=== PATIENT | male | born 1960 | race Caucasian/White ===

== ENCOUNTER 2016-11-08 15:34 | Inpatient (IN) | payer OTHER ==
--- NOTE | 2016-11-08 16:16 | EDPHY ---
H & P Stated Complaint: Diarrhea for three weeks-has been on ABxs Time Seen by Provider: 11/08/16 16:15 - Personal History Current Tetanus/Diphtheria Vaccine: Unsure Current Tetanus Diphtheria and Acellular Pertussis (TDAP): Unsure Tetanus Vaccine Date: < 10 years - Medical/Surgical History Hx Asthma: No Hx Chronic Respiratory Disease: No Hx Diabetes: Yes Hx Cardiac Disease: Yes Hx Renal Disease: No Hx Cirrhosis: No Hx Alcoholism: No Hx HIV/AIDS: No Hx Splenectomy or Spleen Trauma: No Other PMH: Pancreas and kidney transplant, PERIPHERAL NEUROPATHY, CHRONIC PAIN, GOUT, PACEMAKER. PPM, Blind, HTN, Soft Bipolar,/AFIB,CAD. - Social History Smoking Status: Never smoked Constitutional: Initial Vital Signs Temperature (C) 36.6 C 11/08/16 15:41 Heart Rate 62 11/08/16 15:41 Respiratory Rate 16 11/08/16 15:41 Blood Pressure 146/78 H 11/08/16 15:41 O2 Sat (%) 96 11/08/16 15:41 O2 Delivery Mode Room Air Allergies/Adverse Reactions: doxycycline Allergy (Intermediate, Verified 11/08/16 15:45) Other-Enter Comments promethazine HCl [From Phenergan] Allergy (Intermediate, Verified 11/08/16 15:45 ) Other-Enter Comments triazolam [From Halcion] Allergy (Intermediate, Verified 08/14/16 10:38) hallucinations levofloxacin [From Levaquin] Allergy (Mild, Verified 11/08/16 15:45) Vomiting IV CONTRAST Allergy (Intermediate, Uncoded 11/08/16 15:45) Home Medications: Medication Instructions Recorded Allopurinol [Allopurinol 100 MG 100 mg PO DAILY 05/02/16 (*)] Aspirin [Aspirin 81mg (*)] 81 mg PO DAILY 05/02/16 Atorvastatin Calcium [Lipitor 10 10 mg PO DAILY 05/02/16 mg (*)] Cetirizine [ZyrTEC 10 mg (*)] 10 mg PO DAILY PRN 05/02/16 Cholestyramine (with Sugar) 4 gm PO DAILY PRN 05/02/16 [Cholestyramine Packet] Denosumab [Prolia] 60 mg SQ .TWICE YEARLY 05/02/16 Ezetimibe [Zetia 10 MG (*)] 10 mg PO DAILY 05/02/16 Herbals/Supplements -Info Only 1 ea PO DAILY 05/02/16 Pantoprazole Sodium [Protonix 40mg 40 mg PO DAILY 05/02/16 (*)] amLODIPine BESYLATE [Norvasc 2.5 2.5 mg PO DAILY 05/02/16 mg (*)] lamOTRIGine [Lamictal] 150 mg PO DAILY 05/02/16 lamoTRIgine [LamICTAL 100 MG (*)] 100 mg PO HS #0 tab 05/04/16 Colchicine [Colchicine (*)] 0.6 mg PO DAILY PRN 05/23/16 Mycophenolate Mofetil [Cellcept] 500 mg PO BID 05/23/16 Oxcarbazepine [Trileptal] 75 mg PO BID 05/23/16 cycloSPORINE, MODIFIED [Neoral 100 100 mg PO BID 05/23/16 MG (*)] cycloSPORINE, MODIFIED [Neoral 25 25 mg PO BID 05/23/16 MG (*)] [place]-3 Fatty Acids/Fish Oil 1 each PO QID 08/14/16 [[place] 3 Fish Oil Softgel] Sodium Bicarbonate [Na Bicarb] 3,250 mg PO TID 08/14/16 Warfarin Sodium [Coumadin 1MG (*)] 1 mg PO SUMOTUTHFRSA@16 08/14/16 Acetaminophen [Tylenol 325mg (*)] 650 mg PO Q4HRS PRN #0 tab 08/15/16 LORazepam [Ativan (*)] 0.5 - 1 mg PO Q8HRS PRN #0 tab 08/15/16 oxyCODONE IR [Oxycodone Ir (*)] 5 - 10 mg PO Q3HRS PRN #0 tab 08/15/16 predniSONE 5 mg PO DAILY #0 tab 08/15/16 predniSONE 10 mg PO DAILY #0 tab 08/15/16 Medical Decision Making ED Course/Re-evaluation: CHIEF COMPLAINT: Diarrhea HISTORY OF PRESENT ILLNESS: This patient is a 56 year old male who presents to the Emergency Department complaining of intermittent diarrhea beginning in early October. He had oral surgery on 10/03/2016 and took a full 10-day course of Amoxicillin at that time. He reports that he has been experiencing diarrhea since he completed the antibiotic course. He describes associated abdominal cramping that waxes and wanes, worse at night. He denies fever, chills, nausea, vomiting, or additional complaints. He has extensive medical history including recent diagnosis of atrial fibrillation for which he takes Coumadin. REVIEW OF SYSTEMS: A 10 point review of systems was performed and is negative with the exception of the elements mentioned in the history of present illness. PHYSICAL EXAM: HR 62, BP 146/78, O2 Sat 96%, RR 16. Temp noted General Appearance: Alert, well hydrated, appropriate, and non-toxic appearing. Head: Atraumatic without scalp tenderness or obvious injury Eyes: Blindness bilaterally. Ears: Clear bilaterally, no perforation, normal landmarks Nose: Atraumatic, no rhinorrhea, clear. Throat: There is no erythema or exudates, no lesions, normal tonsils, mucus membranes moist. Neck: Supple, 2+ carotid upstroke, nontender, no lymphadenopathy. Respiratory: No retractions, no distress, no wheezes, and no accessory muscle use. Lungs are clear to auscultation bilaterally. Cardiovascular: Regular rate and rhythm, no murmurs, rubs, or gallops. Bilateral carotid, radial, dorsalis pedis, and posterior tibial pulses intact. Good capillary refill all extremities. Gastrointestinal: Abdomen is soft, non-distended, no tenderness, no masses, no rebound, no guarding, no peritoneal signs. Musculoskeletal: Normal active ROM of all extremities, atraumatic. Neurological: Alert, appropriate, and interactive. The patient has normal DTRs and non-focal cranial nerves, motor, sensory, and cerebellar exam. Skin: No rashes, good turgor, no nodules on palpation. Diffuse ecchymosis to both forearms secondary to anticoagulation. Past medical history: CKD, pancreatic insufficiency with prior type 1 diabetes treated with pancreatic transplant, blindness, hypertension, hyperlipidemia, chronic low back pain, atrial fibrillation (Coumadin), cardiac pacemaker, hyponatremia (admitted on 08/14/2016). Past surgical history: pancreatic transplant, renal transplant, pacemaker placement, multiple ocular surgeries. Family history: Non-contributory. Social history: ; at bedside. DIFFERENTIAL DIAGNOSIS: The differential diagnosis for the patient's diarrhea included but was not limited to gastroenteritis, gastritis, medication side effect, and clostridium difficile. MEDICAL DECISION MAKING: This 56 year old male presents complaining of intermittent diarrhea presenting after administration of Amoxicillin following oral surgery at the end of September. On exam, he appears uncomfortable. I discussed with him the plan to proceed with labs. He is agreeable to this. IV established. 1L IV NS administered. Labs obtained. The patient has history of renal insufficiency; his kidney function is at baseline. He is sub-therapeutic in INR, anemia, hypocalcemic. Awaiting stool culture results. Plan for admission. 1mg IV calcium chloride administered for hypocalcemia. 1804: Consultation with Dr. Isidra Martinez, heat treat supervisor within the patient's PCP's practice, who will admit the patient. - Data Points Laboratory Results: Laboratory Results 11/08/16 16:42 11/08/16 16:42 11/08/16 11/08/16 11/08/16 16:42 16:42 16:42 WBC 6.77 10^3/uL 10^3/uL (3.80-9.50) RBC 2.56 10^6/uL L 10^6/uL (4.40-6.38) Hgb 8.3 g/dL L g/dL (13.7-17.5) Hct 25.9 % L % (40.0-51.0) MCV 101.2 fL H fL (81.5-99.8) MCH 32.4 pg pg (27.9-34.1) MCHC 32.0 g/dL L g/dL (32.4-36.7) RDW 19.7 % H % (11.5-15.2) Plt Count 180 10^3/uL 10^3/uL (150-400) MPV 9.2 fL fL (8.7-11.7) Neut % (Auto) 88.4 % H % (39.3-74.2) Lymph % (Auto) 2.5 % L % (15.0-45.0) [place] % (Auto) 5.3 % % (4.5-13.0) Eos % (Auto) 1.9 % % (0.6-7.6) Baso % (Auto) 0.1 % L % (0.3-1.7) Nucleat RBC Rel Count 0.0 % % (0.0-0.2) Absolute Neuts (auto) 5.98 10^3/uL 10^3/uL (1.70-6.50) Absolute Lymphs (auto) 0.17 10^3/uL L 10^3/uL (1.00-3.00) Absolute Monos (auto) 0.36 10^3/uL 10^3/uL (0.30-0.80) Absolute Eos (auto) 0.13 10^3/uL 10^3/uL (0.03-0.40) Absolute Basos (auto) 0.01 10^3/uL L 10^3/uL (0.02-0.10) Absolute Nucleated RBC 0.00 10^3/uL 10^3/uL (0-0.01) Immature Gran % 1.8 % H % (0.0-1.1) Immature Gran # 0.12 10^3/uL H 10^3/uL (0.00-0.10) PT 17.3 SEC H SEC (12.0-15.0) INR 1.42 H (0.83-1.16) APTT 26.9 SEC SEC (23.0-38.0) Sodium 138 mEq/L mEq/L (134-144) Potassium 4.0 mEq/L mEq/L (3.5-5.2) Chloride 114 mEq/L H mEq/L (97-110) Carbon Dioxide 14 mEq/l L mEq/l (22-31) Anion Gap 10 mEq/L mEq/L (8-16) BUN 60 mg/dL H mg/dL (7-23) Creatinine 2.4 mg/dL H mg/dL (0.7-1.3) Estimated GFR 28 Glucose 89 mg/dL mg/dL (70-100) Calcium 5.5 mg/dL L* mg/dL (8.5-10.4) Medications Given: Discontinued Medications Sodium Chloride (Ns) 1,000 mls @ 0 mls/hr IV ONCE ONE PRN Reason: Wide Open Stop: 11/08/16 16:23 Last Admin: 11/08/16 16:55 Dose: 1,000 mls Departure - Departure Disposition: [facility] Acute Clinical Impression: Hypocalcemia, Subtherapeutic international normalized ratio (INR), probably clostridium difficile Anemia Qualifiers: Anemia type: unspecified type Qualified Code(s): D64.9 - Anemia, unspecified Diarrhea Qualifiers: Diarrhea type: presumed infectious Qualified Code(s): A09 - Infectious gastroenteritis and colitis, unspecified Condition: Fair
[2016-11-08] MEDS ORDERED: NS 1,000 ML IV ONE (16:22)
[2016-11-08 16:50] LABS: % IMMATURE GRANULYOCYTES 1.8 % (0.0-1.1); ABSOLUTE IMMATURE GRANULOCYTES 0.12 10^3/uL (0.00-0.10); ADD DIFF? NO; ADD MORPH? NO; ADD SCAN? NO; ATYPICAL LYMPHOCYTE FLAG 0 (0-99); FRAGMENT RBC FLAG 10 (0-99); HEMATOCRIT 25.9 % (40.0-51.0); HEMOGLOBIN 8.3 g/dL (13.7-17.5); LEFT SHIFT FLG 10 (0-99); LIPEMIA HEMOLYSIS FLAG 80 (0-99); MEAN CELL HEMOGLOBIN 32.4 pg (27.9-34.1); MEAN CELL VOLUME 101.2 fL (81.5-99.8); MEAN PLATELET VOLUME 9.2 fL (8.7-11.7); PLATELET CLUMPS FLAG 0 (0-99); PLATELET COUNT 180 10^3/uL (150-400); RED BLOOD CELL COUNT 2.56 10^6/uL (4.40-6.38); RED CELL DISTRIBUTION WIDTH 19.7 % (11.5-15.2)
[2016-11-08 17:03] LABS: ANION GAP 10 mEq/L (8-16); CARBON DIOXIDE 14 mEq/l (22-31); CHLORIDE 114 mEq/L (97-110); CREATININE 2.4 mg/dL (0.7-1.3); GLOMERULAR FILTRATION RATE 28; GLUCOSE 89 mg/dL (70-100); SODIUM 138 mEq/L (134-144)
[2016-11-08 17:09] LABS: APTT 26.9 SEC (23.0-38.0); INR 1.42 (0.83-1.16); PROTIME(PATIENT) 17.3 SEC (12.0-15.0)
[2016-11-08 17:16] LABS: CALCIUM 5.5 mg/dL (8.5-10.4)
[2016-11-08] MEDS ORDERED: CALCIUM CHLORIDE 1 GM/10 ML INJ IV ONE (17:30)
--- NOTE | 2016-11-08 18:25 | SOAPPROG ---
SOAP Progress Note Assessment/Plan: Assessment: 56 yo male w/ h/o kidney transplant x 2, pancreatic transplant x 1, CKD w / baseline Cr in mid 2 range, blindness from DM who presents to the ER after 3 weeks of diarrhea. He had dental work done 3 weeks prior and was treated with amoxicillin, and then after this developed diarrhea. He was eating a lot of soup and salty foods and developed some edema as well, but didn't feel like eating anything else. He tried pepto bismal and imodium without much success, has had 2-6 loose stools per day. He decided he couldn't handle it anymore, and has a h/o hyponatremia and was worried this was going on in addition. In the ER he was found to have nl sodium, rest of BMP at his typical baseline but low calcium. His cbc showed he is significantly anemic which is acute on chronic. Stool cultures, c diff pending. -will admit, hydrate, awaiting stool culture/c diff to treat appropriately ( vanco/flagyl for c diff vs anti-spasmodic, anti-motility depending on results). -low ca - being treated in ER -CKD - stable, f/b Dr Mcnair, con t sodium bicarb -DM - fsbs, insulin, check on recent A1c -PAF - on coumadin, follow inr/pt -s/p renal tx/pancreatic tx - on cyclosporine, cellcept, will alert nephrology he is here and of the current situation -hyperchol - cont lipitor -GERD- cont PPI -mood - on lamotrigine, trileptal -h/o htn typically on amlodpine, hold for now w/ dehydration low bp reassess -hyperlipidemia - lipitor, zetia, fish oil Plan: 11/08/16 18:07 Subjective: Feeling horrible, tired, not sleeping well for 2-3 weeks due to diarrhea Objective: Vital Signs Temp Pulse Resp BP Pulse Ox 36.6 C 62 16 146/78 H 96 11/08/16 15:41 11/08/16 15:41 11/08/16 15:41 11/08/16 15:41 11/08/16 15:41 PT 17.3 SEC (12.0-15.0) H 11/08/16 16:42 INR 1.42 (0.83-1.16) H 11/08/16 16:42 GEN: pleasant, spouse at bedside, tired, yawning HEENT: blind, poor dentition NEck: soft supple CHEST: cta b CV: irreg irreg ABD: distended, bs present Ext: 1+ ble edema, bandaids on bilater anter shins Neuro: oriented, cooperative - Pending Discharge Pending Discharge Within 24 Hours: No ICD10 Worksheet Patient Problems: Problems Problem Status Onset Heart block AV second degree Acute Elevated troponin Acute Pacemaker Acute Urinary tract infection Acute Hyponatremia Acute Hypocalcemia Acute Subtherapeutic international normalized ratio (INR) Acute Anemia Acute Diarrhea Acute
[2016-11-08] MEDS ORDERED: ACETAMINOPHEN 325 MG TAB PO PRN (18:28)
[2016-11-08] MEDS ORDERED: ONDANSETRON 4 MG/2 ML VIAL IVP PRN (18:28)
[2016-11-08] MEDS ORDERED: ONDANSETRON DISINTEGRATING 4 MG TAB PO PRN (18:28)
[2016-11-08] MEDS ORDERED: NS 1,000 ML IV SCH (18:30)
--- NOTE | 2016-11-08 19:21 | GHP ---
DATE OF ADMISSION: 11/08/2016 CHIEF COMPLAINT: Diarrhea. HPI: The patient is a 56-year-old male with a significant history of renal transplant x2, pancreatic transplant x1 with chronic kidney disease, and baseline anemia as well as blindness who presented to the ER after about 3 weeks of diarrhea. This was proceeded by dental work that he had done and was treated with amoxicillin which, thereafter, he developed the diarrhea. He has been eating a lot of soup and salty foods, trying to symptomatically treat this and then developed a lot of edema resulting from this. He tried taking Pepto- Bismol and Imodium which really was not slowing the stools down. He still reports he is having 2 to 6 loose stools per day. He reports that 3-4 years ago after receiving antibiotics for what sounds like a foot cellulitis, he also had horrendous GI upset that went on for almost a year afterwards and was not C diff by ultimately resolved. It was difficult to treat. He reports he has a history of recent hyponatremia and he was worried that this was going on in addition, because he was feeling pretty tired and not great. He has not been able to sleep well at night for several nights and is just exhausted. In the ER , it was found that he did have a normal sodium and the rest of his basic metabolic panel was normal except for a low calcium which was being treated in the ER. The CBC also shows that he has acute on chronic anemia. Typically, hematocrit is in the mid 30 range and is now in the mid 20 range. Stool cultures and C diff are pending. PAST MEDICAL HISTORY: Significant for type 1 diabetes for which he received a pancreatic transplant in 1992. Kidney failure due to diabetes, status post transplant in 1992, repeat 2001. Chronic kidney disease, followed by Dr. Mcnair with a creatinine in the mid 2 range. Hypertension, sick sinus syndrome , status post pacer in 2013 also with atrial fibrillation. Hyperlipidemia, gout , hypertension, anxiety. PAST SURGICAL HISTORY: Significant for transplants as discussed above, recent dental surgery, pacemaker 2013, eye surgeries and a foot surgery as well. SOCIAL HISTORY: He has rare alcohol. He is a nonsmoker. Significant other is with him in the room. FAMILY HISTORY: His father has a history of a stroke, hip and knee replacements as well as valve surgery and a stroke. Mom is alive, history of low platelets, cirrhosis. He has a brother with prostate cancer, a sister had thyroid surgery. REVIEW OF SYSTEMS: GENERAL: Positive for fatigue. Denies fevers or chills. HEENT: Blind. RESPIRATORY: Denies cough, shortness of breath or wheezing. CARDIOVASCULAR: Denies chest pain or palpitations. GI: Positive for diarrhea as above. MUSCULOSKELETAL: He just aches in general and lower legs are hurting with increased edema. : Negative. NEUROLOGIC: Negative. HEMATOLOGIC/ALLERGIC: Negative. He is on Coumadin for atrial fibrillation. PSYCHIATRIC: Positive for history of anxiety, on mood stabilizers. PHYSICAL EXAM: VITALS: Blood pressure initially 146/78, repeat 133/32, heart rate 60, respirations 16, he is 96% on room air and afebrile with a temperature of 36.6. GENERAL: Tired-appearing male, resting in bed, spouse at bedside, yawning. HEENT: He is blind, has poor dentition. NECK: Soft and supple with no masses or goiter appreciated. CHEST: Clear to auscultation bilaterally. CARDIOVASCULAR: Irregular. He is paced. ABDOMEN: Distended with present bowel sounds. EXTREMITIES: He has 1+ bilateral lower extremity with Band-Aids on anterior shins from when he was more edematous, approximately a week ago, with a lot of chicken soup when his lower legs were oozing at that time. He said this has resolved but his skin is very thin and does not want remove them due to the warfarin. NEUROLOGIC: Alert and oriented, cooperative but fatigued. PSYCHIATRIC: No acute problematic mood issues. ASSESSMENT AND PLAN: 1. A 56-year-old male, status post kidney transplant x2, and pancreatic transplant with chronic kidney disease, anemia with 3 weeks of diarrhea following amoxicillin with dental work. Will hydrate. Awaiting stool culture/ C diff to treat appropriately. If Clostridium difficile, oral vancomycin versus Flagyl versus antispasmodics and antimotility agents depending on results of the cultures. 2. Hypocalcemia. Being replaced in the ER. 3. Chronic kidney disease, stable followed by Dr. Mncair. Will continue his sodium bicarb, reassess his creatinine, consider having Nephrology weigh in given his hemoglobin and hematocrit drop from his usual baseline. Will reassess. 4. History of diabetes type 1, status post pancreatic transplant. He is unfortunately blind from his diabetes but no longer on insulin. 5. Anemia - acute on chronic - will recheck, dw nephrology, question epo vs further w/u, possible transfusion. 5. Paroxysmal atrial fibrillation on Coumadin, follow INR PT. 6. Status post renal transplant, pancreas transplant. Continue on cyclosporine , CellCept, prednisone per his usual dosing and alert Nephrology he is here. 7. Hypercholesterolemia. Continue Lipitor and Zetia. 8. Gastroesophageal reflux disease. Continue on proton pump inhibitor. 9. Mood. Continue lamotrigine and Trileptal. 10. History of hypertension. Typically on amlodipine. Will reassess with hydration and follow blood pressure. 11. DVT prophylaxis, is on Coumadin. If pt/inr too low will place on lovenox to cover. 12. Disposition: Anticipate greater than 2 midnight stay given his multiple comorbidities and length of diarrhea prior to admission. /[id number]/MODL [id number]
[2016-11-08] MEDS ORDERED: COLCHICINE 0.6 MG CAP/TAB PO PRN (20:21)
[2016-11-08] MEDS ORDERED: CHOLESTYRAMINE/SUCROSE 4 GM PKT PO PRN (20:21)
[2016-11-08] MEDS ORDERED: oxyCODONE IR 5 MG TAB PO PRN (20:21)
[2016-11-08 22:32] LABS: HEMATOCRIT 27.5 % (40.0-51.0); HEMOGLOBIN 8.6 g/dL (13.7-17.5); MEAN CELL HEMOGLOBIN 32.5 pg (27.9-34.1); MEAN CELL HEMOGLOBIN CONCENTR. 31.3 g/dL (32.4-36.7); MEAN CELL VOLUME 103.8 fL (81.5-99.8); RED BLOOD CELL COUNT 2.65 10^6/uL (4.40-6.38); RED CELL DISTRIBUTION WIDTH 19.8 % (11.5-15.2)
[2016-11-08 22:44] LABS: ANION GAP 10 mEq/L (8-16); CALCIUM 6.2 mg/dL (8.5-10.4); CARBON DIOXIDE 12 mEq/l (22-31); CHLORIDE 115 mEq/L (97-110); CREATININE 2.2 mg/dL (0.7-1.3); GLOMERULAR FILTRATION RATE 31; GLUCOSE 84 mg/dL (70-100); POTASSIUM 4.1 mEq/L (3.5-5.2); SODIUM 137 mEq/L (134-144)
[2016-11-08] MEDS: metroNIDAZOLE 500 MG TAB PO SCH (23:23)
[2016-11-08] MEDS: lamoTRIgine 100 MG TAB PO SCH (23:23)
[2016-11-08] MEDS: OXcarbazepine 300 MG TAB PO SCH (23:24)
[2016-11-08] MEDS: SODIUM BICARBONATE 650 MG TAB PO SCH (23:24)
[2016-11-08] MEDS: MYCOPHENOLATE MOFETIL 250 MG CAP PO SCH (23:27)
[2016-11-08] MEDS: CYCLOSPORINE MODIFIED 100 MG PO SCH (23:28)
[2016-11-08] MEDS: CYCLOSPORINE, MODIFIED 25 MG CAP (NEORAL) PO SCH (23:28)
[2016-11-08] MEDS: [UNRECOGNIZED DRUG - OTHER] PO SCH (23:29)
[2016-11-08] MEDS: LORazepam 0.5 MG TAB PO PRN (23:33)
[2016-11-09 05:11] LABS: % IMMATURE GRANULYOCYTES 1.8 % (0.0-1.1); ABSOLUTE IMMATURE GRANULOCYTES 0.11 10^3/uL (0.00-0.10); ADD DIFF? NO; ADD MORPH? NO; ADD SCAN? NO; ATYPICAL LYMPHOCYTE FLAG 0 (0-99); FRAGMENT RBC FLAG 0 (0-99); HEMATOCRIT 25.3 % (40.0-51.0); LEFT SHIFT FLG 10 (0-99); LIPEMIA HEMOLYSIS FLAG 80 (0-99); MEAN CELL HEMOGLOBIN 32.7 pg (27.9-34.1); MEAN CELL HEMOGLOBIN CONCENTR. 31.6 g/dL (32.4-36.7); MEAN CELL VOLUME 103.3 fL (81.5-99.8); MEAN PLATELET VOLUME 10.2 fL (8.7-11.7); PLATELET CLUMPS FLAG 0 (0-99); PLATELET COUNT 194 10^3/uL (150-400); RED BLOOD CELL COUNT 2.45 10^6/uL (4.40-6.38); RED CELL DISTRIBUTION WIDTH 19.8 % (11.5-15.2)
[2016-11-09 05:22] LABS: INR 1.51 (0.83-1.16); PROTIME(PATIENT) 18.2 SEC (12.0-15.0)
[2016-11-09 05:45] LABS: ANION GAP 11 mEq/L (8-16); CARBON DIOXIDE 12 mEq/l (22-31); CHLORIDE 119 mEq/L (97-110); CREATININE 2.2 mg/dL (0.7-1.3); GLOMERULAR FILTRATION RATE 31; GLUCOSE 73 mg/dL (70-100); POTASSIUM 3.6 mEq/L (3.5-5.2); SODIUM 142 mEq/L (134-144)
[2016-11-09 06:00] LABS: CALCIUM 5.8 mg/dL (8.5-10.4)
[2016-11-09] MEDS: metroNIDAZOLE 500 MG TAB PO SCH ×3 (06:14→21:14)
[2016-11-09] MEDS: OMEGA-3 FATTY ACIDS 1,000 MG CAP PO SCH ×4 (06:14→20:48)
[2016-11-09] MEDS ORDERED: CALCIUM CHLORIDE 1 GM/10 ML INJ IV ONE (06:37)
[2016-11-09] MEDS ORDERED: predniSONE 20 MG TAB PO ONE (06:59)
[2016-11-09] MEDS ORDERED: CALCIUM GLUCONATE 50 ML IV ONE ×2 (07:30→18:30)
[2016-11-09] MEDS ORDERED: LORazepam 0.5 MG TAB PO PRN (08:31)
[2016-11-09] MEDS: ASPIRIN 81 MG CHEWABLE TAB PO SCH (08:31)
[2016-11-09] MEDS: SODIUM BICARBONATE 650 MG TAB PO SCH ×3 (08:31→21:13)
[2016-11-09] MEDS: EZETIMIBE 10 MG TAB PO SCH (08:32)
[2016-11-09] MEDS: OXcarbazepine 300 MG TAB PO SCH ×2 (08:32→20:50)
[2016-11-09] MEDS: PANTOPRAZOLE SODIUM 40 MG TAB PO SCH (08:32)
[2016-11-09] MEDS: ALLOPURINOL 100 MG TAB PO SCH (08:32)
[2016-11-09] MEDS: CYCLOSPORINE MODIFIED 100 MG PO SCH ×2 (08:33→20:48)
[2016-11-09] MEDS: CYCLOSPORINE, MODIFIED 25 MG CAP (NEORAL) PO SCH ×2 (08:33→20:48)
[2016-11-09 08:40] LABS: MAGNESIUM 1.3 mg/dL (1.6-2.3)
--- NOTE | 2016-11-09 08:40 | SOAPPROG ---
SOAP Progress Note Assessment/Plan: Assessment:Plan: Kidney Pancreas transplant-at baseline -continue current immunosuppression Diarrhea-empirically on flagyl -duration over the last three weeks since undergoing dental work and receiving antibiotics -would limit IVF due to degree of edema -would avoid antibiotic dental prophylaxis Edema-as above Hypocalcemia-replace IV -likely needs active form of Vitamin D to help correct -on chronic bicarbonate, which likely worsens this issue -check phos and mag to make sure there are no other contributing factors Anemia-check iron studies -ferritin 113 i December 2015, so I suspect he is deficient -will give IV iron if sat < 30% Afib-would avoid Lovenox -INR goal 1.5 to 2 -Pharmacy to confirm coumadin dosing with primary team -I would avoid any meaningful change in his dose, as with his GI issues, he could very easily overshoot -he currently looks 100% paced Anxiety-wants discharge -he will accept some anxiolytic to help him cope Dispo-check labs this afternoon and replete calcium further as needed -I do not think he is stable for discharge today 11/09/16 08:45 Subjective: I want to go home to my own bed, I do not want to be here Objective: Vital Signs Temp Pulse Resp BP Pulse Ox 36.6 C 69 18 155/41 H 94 11/09/16 08:05 11/09/16 08:05 11/09/16 08:05 11/09/16 08:05 11/09/16 08:05 Laboratory Results 11/09/16 04:04 11/09/16 04:04 11/08/16 11/09/16 11/10/16 05:59 05:59 05:59 Intake Total 1000 Output Total 1500 Balance -500 PT 18.2 SEC (12.0-15.0) H 11/09/16 04:04 INR 1.51 (0.83-1.16) H 11/09/16 04:04 Physical Exam - Physical Exam General Appearance: alert, moderate distress EENT: normal ENT inspection Neck: normal inspection Respiratory: lungs clear, normal breath sounds, No respiratory distress Cardiac/Chest: regular rate, rhythm, other (paced) Abdomen: normal bowel sounds, non-tender Extremities: swelling (2+) ICD10 Worksheet Patient Problems: Problems Problem Status Onset Anemia Acute Diarrhea Acute Hypocalcemia Acute Subtherapeutic international normalized ratio (INR) Acute Elevated troponin Acute Heart block AV second degree Acute Hyponatremia Acute Pacemaker Acute Urinary tract infection Acute
[2016-11-09] MEDS ORDERED: Herbals/Supplements -Info Only PO SCH (09:00)
[2016-11-09] MEDS ORDERED: *PHM DO NOT USE-LORazepam 1 MG/ML IV NEWBORN SYR IV PRN (09:12)
[2016-11-09] MEDS ORDERED: MAGNESIUM SULF 2 GM/WATER 50 ML IV ONE (09:15)
--- NOTE | 2016-11-09 09:17 | SOAPPROG ---
SOAP Progress Note Assessment/Plan: Assessment: Plan: 11/09/16 09:15 loose stool--c diff rejected because stool was formed, on flagyl empirically CKD--appreciate Nephrology input anemia--Fe studies pending, ferritin will likely be high as APR anxiety--likely biggest challenge--add IV dose of lorazepam this am HTN--improved BP VERY difficult to hear due to massive atherosclerosis Subjective: c/o very poor sleep and severe anxiety. Loose stool has persisted since dental extractions. Objective: Vital Signs Temp Pulse Resp BP Pulse Ox 36.6 C 69 18 155/41 H 94 11/09/16 08:05 11/09/16 08:05 11/09/16 08:05 11/09/16 08:05 11/09/16 08:05 Laboratory Results 11/09/16 04:04 11/09/16 04:04 11/08/16 11/09/16 11/10/16 05:59 05:59 05:59 Intake Total 1000 Output Total 1500 Balance -500 PT 18.2 SEC (12.0-15.0) H 11/09/16 04:04 INR 1.51 (0.83-1.16) H 11/09/16 04:04 Gen: anxious, pleasant Lungs: CTAB Heart: RRR Abd + bs soft some distention LE's 2+ edema hgb 8.0 Ca+ low BUN/Cr--stable range ICD10 Worksheet Patient Problems: Problems Problem Status Onset Anemia Acute Diarrhea Acute Hypocalcemia Acute Subtherapeutic international normalized ratio (INR) Acute Elevated troponin Acute Heart block AV second degree Acute Hyponatremia Acute Pacemaker Acute Urinary tract infection Acute
[2016-11-09] MEDS: lamoTRIgine 100 MG TAB PO SCH ×2 (09:23→20:48)
[2016-11-09] MEDS: predniSONE 5 MG TAB PO SCH (09:24)
[2016-11-09] MEDS: MYCOPHENOLATE MOFETIL 250 MG CAP PO SCH ×2 (09:24→20:48)
[2016-11-09] MEDS: LORazepam 2 MG/ML INJ IVP PRN (10:00)
[2016-11-09 10:13] LABS: % SATURATION 20 % (20-55); TOTAL IRON BINDING CAPACITY 181 ug/dL (260-490)
[2016-11-09] MEDS: [UNRECOGNIZED DRUG - OTHER] PO SCH (12:00)
[2016-11-09] MEDS: SODIUM FERRIC GLUCONAT/SUCROSE 125 MG in NS 100 ML IV SCH (12:14)
--- NOTE | 2016-11-09 12:24 | GCON ---
DATE OF CONSULTATION: 11/09/2016 REASON FOR CONSULTATION: Kidney/pancreas transplant patient. ASSESSMENT: 1. Kidney/pancreas transplant performed in 1992 at [place] with subsequent loss of renal allograft. 2. Second renal transplant preemptively, living/unrelated, at [facility] in 2001. 3. Coronary artery disease with 3-vessel disease on left heart catheterization. 05/23/2016; under medical management. 4. Atrial fibrillation, on Coumadin. 5. Status post dual-chamber permanent pacemaker placement in September 2013. 6. Diarrhea for 3 weeks, now found to have norovirus. 7. Hypocalcemia. 8. Metabolic acidosis on chronic bicarbonate therapy. 9. Diabetes with all its complications, including blindness. 10. Anemia. RECOMMENDATION: 1. Replace calcium as you are doing. 2. Check magnesium and phosphorus levels. 3. Replace magnesium as needed. 4. Evaluate iron studies. 5. Give iron intravenously if indicated. 6. Continue current immunosuppression. 7. Follow up on stool studies. 8. Treat anxiety with lorazepam as needed. 9. Avoid Lovenox, given the patient's high risk for bleeding complications. Goal INR should be between 1.5 and 2. 10. Edema. Reduce IV fluids. HISTORY: The patient is a 56-year-old gentleman well known to me from the [facility]. He has end-stage renal disease secondary to type 1 diabetes. He has had complications of his type 1 diabetes in the form of neuropathy, retinopathy, and nephropathy. He has also had gastroparesis. He was on peritoneal dialysis for approximately 4 years prior to undergoing a kidney/pancreas transplant at [facility] in 1992. He lost his renal allograft in 2001 and underwent a preemptive renal transplant, living, unrelated , from his ex-, at [facility] here in [place]. He had some trouble with compliance with his medications and had a loss of renal function to where his baseline has been in the 2 to 2.5 range based on serum creatinine readings. He is now stable with his renal function and transplant medications. He comes in now with a 3-week history of diarrhea. He reached the point where he was unable to manage this at home and sought emergency room attention yesterday afternoon. He was found to be severely hypocalcemic. His history was that he had oral surgery on October 03 and took a 10-day course of amoxicillin. This seems to have precipitated the diarrhea. Stool studies had been sent. I have just been informed that these came back with a positive assay for norovirus. He has a history of depression. There may be an element of underlying bipolar disorder. He is very frustrated and anxious to get home. He was having trouble sleeping at home and did not get much sleep since he has been admitted to the hospital here. He has significant coronary disease. He underwent left heart catheterization on 05/23/[address] Lord. He had 3-vessel disease identified with an 80% lesion of the obtuse marginal. He had LAD changes with a 70% to 80% lesions at both the 2nd diagonal and in an ostial location at the 2nd diagonal branch. His circumflex was nondominant. His RCA was dominant and had 50% mid lesion and an 80% lesion at the bifurcation of the PDA and the PLV. The proximal portion of the PLV was subtotally occluded. His ejection fraction is preserved at around 70%. He has history of AFib and is on low-dose Coumadin. His other medical problems include gout, anemia, and skin cancer. He has underlying metabolic acidosis for which he takes chronic bicarbonate therapy. SURGICAL HISTORY: Kidney/pancreas transplant in 1992, living unrelated renal transplant in 2001 at [facility], eye surgeries, skin cancer surgery, and foot surgery. MEDICATIONS: Documented in the chart. He is on herbal supplement daily, Zetia 10 mg daily, Pantoprazole 40 mg daily, Prolia 60 mg subcu twice a year, lamotrigine 150 mg daily, cholestyramine 4 g daily as needed for loose stool, aspirin 81 mg daily, amlodipine 2.5 mg daily, allopurinol 100 mg daily, lamotrigine 100 mg at night as well, cyclosporin 125 mg twice daily, colchicine 0.6 daily p.r.n., Trileptal 75 mg twice daily, CellCept 500 mg twice daily, sodium bicarbonate 5 tablets 3 times daily, [place]-3 fatty acids 4 times daily, Coumadin 0.5 mg Monday/Monday/, prednisone 5 mg daily, Lorazepam 0.5 mg at bedtime, and oxycodone 5 mg p.o. q.6 p.r.n. ALLERGIES: Include doxycycline, promethazine, triathlon, levofloxacin, and IV contrast. FAMILY HISTORY/SOCIAL HISTORY: Noncontributory. He is . He lives in [place]. He is a nondrinker and nonsmoker and denies drug use. His parents are both living in their 80s. REVIEW OF SYSTEMS: Negative except for that included in history of present illness. PHYSICAL EXAMINATION: VITAL SIGNS: His temp is 36.6, pulse 69, respirations 18 , blood pressure 155/41. APPEARANCE: Mild distress. He appears to be anxious. He is sitting at the side of the bed. His appearance is consistent with his longstanding diabetes and blindness. HEENT: Unremarkable except for his blindness. NECK: Unremarkable. HEART: Regular with no extra heart sounds. LUNGS: Clear to auscultation. ABDOMEN: Benign. Positive bowel sounds. Nontender. No rebound or guarding. EXTREMITIES: 1 to 2+ edema to his knees. LABORATORY DATA: Creatinine of 2.2. Electrolytes were remarkable for a calcium of 5.8. Since an original visit, his magnesium has come back at 1.3 and a phosphorus of 3.9. Iron saturation of 20%. ASSESSMENT: A kidney/pancreas transplant. His creatinine is at baseline. His blood sugar is normal. We will continue his current immunosuppression at the current doses. He is edematous. I would slow down his IV fluids as, in spite of his diarrhea, I do not think he is extremely volume depleted at the present time. We will put him at a rate of 75 cc an hour because at the present time it does not look like he is going to be eating or drinking very much. He has severe hypocalcemia. IV calcium has been ordered. Will check magnesium levels. Will repeat calcium levels this afternoon. We will give him magnesium now that his magnesium level has come back and has been found to be low. He may need an active form of vitamin D to help with his calcium balance. With his metabolic acidosis, we will continue his bicarb. His bicarbonate level is only 12. His use of bicarbonate supplement may be making his calcium issue more pronounced, but I think we need to treat both at the same time, given his current balance. He is anemic. There are no indications for transfusion. He looks like he is iron deficient. IV iron has been ordered. He has been on Coumadin. I would continue his current dosing and confirm his dosing with LEIGH ANN Moya. I would avoid Lovenox as I think the patient is at increased risk for bleeding complications given his comorbidities. I think his current INR of 1.5 is adequate. He is anxious. He states he has responded to a lorazepam in the past. Will make sure he has p.r.n. dosing of that available. /[id number]/MODL MTDD
--- NOTE | 2016-11-09 14:06 | WOCRNPDOC ---
WOCRN Advanced Assessment Note - Skin Integrity Problem, Advanced Assess Left First Toe Dressing Type: Open to Air Exudate Amount: None Megan Wound Tissue: Blanching, Erythema Wound Bed Constitution: Dried Exudate Site Measurement - Head-to-Toe Length X Width X Depth (cm): 0.6x1x0.1 Skin Integrity Problem Comment: Shallow partial thickness wound without signs of infection. No need for wound care to follow. Scab on left arvizu from traumatic encounter with a shopping cart. Silvasorb and bandaid are appropriate for arvizu. Allevyn baby gentle to toe with silvasorb.
[2016-11-09 14:29] LABS: ALBUMIN 2.6 g/dL (3.5-5.0); ANION GAP 10 mEq/L (8-16); CARBON DIOXIDE 13 mEq/l (22-31); CHLORIDE 118 mEq/L (97-110); CREATININE 2.2 mg/dL (0.7-1.3); GLOMERULAR FILTRATION RATE 31; GLUCOSE 100 mg/dL (70-100); POTASSIUM 3.8 mEq/L (3.5-5.2); SODIUM 141 mEq/L (134-144)
[2016-11-09] MEDS ORDERED: WARFARIN SODIUM 1 MG TAB PO SCH (16:00)
[2016-11-09] MEDS: LORazepam 0.5 MG TAB PO PRN (20:58)
[2016-11-10] MEDS: [UNRECOGNIZED DRUG - OTHER] PO SCH ×3 (00:52→17:49)
[2016-11-10 04:12] LABS: ANION GAP 9 mEq/L (8-16); CARBON DIOXIDE 14 mEq/l (22-31); CHLORIDE 116 mEq/L (97-110); CREATININE 2.1 mg/dL (0.7-1.3); GLOMERULAR FILTRATION RATE 33; GLUCOSE 86 mg/dL (70-100); MAGNESIUM 1.7 mg/dL (1.6-2.3); POTASSIUM 3.8 mEq/L (3.5-5.2); SODIUM 139 mEq/L (134-144)
[2016-11-10 04:15] LABS: CALCIUM 5.8 mg/dL (8.5-10.4)
[2016-11-10 05:36] LABS: ALBUMIN 2.5 g/dL (3.5-5.0)
[2016-11-10] MEDS: metroNIDAZOLE 500 MG TAB PO SCH (05:52)
[2016-11-10] MEDS: OMEGA-3 FATTY ACIDS 1,000 MG CAP PO SCH ×4 (05:52→20:28)
[2016-11-10] MEDS ORDERED: MAGNESIUM SULF 2 GM/WATER 50 ML IV ONE (08:31)
[2016-11-10] MEDS ORDERED: CALCIUM GLUCONATE 2 GM in D5W 50 ML IV ONE ×2 (08:31→17:15)
--- NOTE | 2016-11-10 08:54 | SOAPPROG ---
SOAP Progress Note Assessment/Plan: Assessment: Plan: 11/09/16 09:15 loose stool--c diff rejected because stool was formed, on flagyl empirically CKD--appreciate Nephrology input anemia--Fe studies pending, ferritin will likely be high as APR anxiety--likely biggest challenge--add IV dose of lorazepam this am HTN--improved BP VERY difficult to hear due to massive atherosclerosis 11/10/16 08:53 hypocalcemia--renal has ordered more IV Ca gluc CKD--creatinine at baseline, d/c extra fluids anemia with fe def--iv iron ordered emotional distress--likely aggravated by low Ca2+ and being in hospital. Ativan as needed Subjective: Patient upset and wants to leave hospital. Some n/v this am. Large BM's this am. No f/c. Very anxious/tearful Objective: Vital Signs Temp Pulse Resp BP Pulse Ox 36.8 C 66 22 H 100/44 L 94 11/10/16 07:38 11/10/16 07:38 11/10/16 07:38 11/10/16 07:38 11/10/16 07:38 Microbiology 11/09/16 03:15 Gastrointestinal Tract Panel (PCR) - Final Stool Norovirus Gi/Gii Laboratory Results 11/09/16 04:04 11/10/16 03:00 11/09/16 11/10/16 11/11/16 05:59 05:59 05:59 Intake Total 1000 4190 Output Total 1500 1400 Balance -500 2790 PT 18.2 SEC (12.0-15.0) H 11/09/16 04:04 INR 1.51 (0.83-1.16) H 11/09/16 04:04 Gen: distressed Lungs: CTAB Heart: RRR tele paced regular Abd + bs soft LE's 2+ edema Ca2+ remains low ICD10 Worksheet Patient Problems: Problems Problem Status Onset Anemia Acute Diarrhea Acute Hypocalcemia Acute Subtherapeutic international normalized ratio (INR) Acute Elevated troponin Acute Heart block AV second degree Acute Hyponatremia Acute Pacemaker Acute Urinary tract infection Acute
[2016-11-10] MEDS: LORazepam 2 MG/ML INJ IVP PRN ×3 (09:16→20:21)
[2016-11-10] MEDS: MYCOPHENOLATE MOFETIL 250 MG CAP PO SCH ×2 (09:26→20:26)
[2016-11-10] MEDS: ALLOPURINOL 100 MG TAB PO SCH (09:26)
[2016-11-10] MEDS: CYCLOSPORINE, MODIFIED 25 MG CAP (NEORAL) PO SCH ×2 (09:27→20:26)
[2016-11-10] MEDS: CYCLOSPORINE MODIFIED 100 MG PO SCH ×2 (09:27→20:26)
[2016-11-10] MEDS: SODIUM BICARBONATE 650 MG TAB PO SCH ×2 (09:27→15:42)
[2016-11-10] MEDS: lamoTRIgine 100 MG TAB PO SCH ×2 (09:28→20:28)
[2016-11-10] MEDS: predniSONE 5 MG TAB PO SCH (09:30)
[2016-11-10] MEDS: EZETIMIBE 10 MG TAB PO SCH (09:30)
[2016-11-10] MEDS: ASPIRIN 81 MG CHEWABLE TAB PO SCH (09:30)
[2016-11-10] MEDS: PANTOPRAZOLE SODIUM 40 MG TAB PO SCH (09:31)
[2016-11-10] MEDS: OXcarbazepine 300 MG TAB PO SCH ×2 (09:31→20:28)
--- NOTE | 2016-11-10 11:19 | SOAPPROG ---
SOAP Progress Note Assessment/Plan: Assessment:Plan: Kidney Pancreas transplant-at baseline -continue current immunosuppression Diarrhea-norovirus -was empirically on flagyl, now stopped -duration over the last three weeks since undergoing dental work and receiving antibiotics -would avoid antibiotic dental prophylaxis as a general precaution Edema-as above, maintenance IVF stopped Hypocalcemia-replace IV -will add active form of Vitamin D to help correct -on chronic bicarbonate, which likely worsens this issue -low magnesium level -being replaced Anemia-IV iron ordered Afib-would avoid Lovenox -INR goal 1.5 to 2 -Pharmacy to confirm coumadin dosing with primary team -I would avoid any meaningful change in his dose, as with his GI issues, he could very easily overshoot -he currently looks 100% paced Anxiety-better today -he will accept some anxiolytic to help him cope 11/10/16 11:16 Subjective: poor sleep Objective: Vital Signs Temp Pulse Resp BP Pulse Ox 36.8 C 66 22 H 100/44 L 94 11/10/16 07:38 11/10/16 07:38 11/10/16 07:38 11/10/16 07:38 11/10/16 07:38 Microbiology 11/09/16 03:15 Gastrointestinal Tract Panel (PCR) - Final Stool Norovirus Gi/Gii Laboratory Results 11/09/16 04:04 11/10/16 03:00 11/09/16 11/10/16 11/11/16 05:59 05:59 05:59 Intake Total 1000 4190 Output Total 1500 1400 Balance -500 2790 PT 18.2 SEC (12.0-15.0) H 11/09/16 04:04 INR 1.51 (0.83-1.16) H 11/09/16 04:04 Physical Exam - Physical Exam General Appearance: alert, no apparent distress EENT: normal ENT inspection Neck: normal inspection Respiratory: lungs clear, normal breath sounds, No respiratory distress Cardiac/Chest: regular rate, rhythm Abdomen: normal bowel sounds, non-tender, soft Extremities: swelling ICD10 Worksheet Patient Problems: Problems Problem Status Onset Anemia Acute Diarrhea Acute Hypocalcemia Acute Subtherapeutic international normalized ratio (INR) Acute Elevated troponin Acute Heart block AV second degree Acute Hyponatremia Acute Pacemaker Acute Urinary tract infection Acute
[2016-11-10] MEDS: SODIUM FERRIC GLUCONAT/SUCROSE 125 MG in NS 100 ML IV SCH (12:13)
[2016-11-10 16:59] LABS: HEMATOCRIT 23.7 % (40.0-51.0); HEMOGLOBIN 7.4 g/dL (13.7-17.5); MEAN CELL HEMOGLOBIN 32.3 pg (27.9-34.1); MEAN CELL HEMOGLOBIN CONCENTR. 31.2 g/dL (32.4-36.7); MEAN CELL VOLUME 103.5 fL (81.5-99.8); RED BLOOD CELL COUNT 2.29 10^6/uL (4.40-6.38)
[2016-11-10 17:05] LABS: ANION GAP 9 mEq/L (8-16); CALCIUM 6.1 mg/dL (8.5-10.4); CARBON DIOXIDE 14 mEq/l (22-31); CHLORIDE 116 mEq/L (97-110); CREATININE 2.2 mg/dL (0.7-1.3); GLOMERULAR FILTRATION RATE 31; GLUCOSE 97 mg/dL (70-100); POTASSIUM 3.4 mEq/L (3.5-5.2); SODIUM 139 mEq/L (134-144)
[2016-11-10] MEDS: CALCITRIOL 0.25 MCG CAP PO SCH (17:13)
[2016-11-10] MEDS ORDERED: POTASSIUM CL 20 MEQ/15 ML UDCUP PO ONE ×2 (17:16→19:00)
[2016-11-10 20:16] VITALS: PULSE 60
[2016-11-11] MEDS: LORazepam 2 MG/ML INJ IVP PRN ×2 (01:13→06:38)
[2016-11-11] MEDS: SODIUM BICARBONATE 650 MG TAB PO SCH ×2 (01:13→08:50)
[2016-11-11 05:25] LABS: ALBUMIN 2.4 g/dL (3.5-5.0); ANION GAP 10 mEq/L (8-16); CALCIUM 6.8 mg/dL (8.5-10.4); CARBON DIOXIDE 13 mEq/l (22-31); CHLORIDE 118 mEq/L (97-110); CREATININE 2.2 mg/dL (0.7-1.3); GLOMERULAR FILTRATION RATE 31; GLUCOSE 72 mg/dL (70-100); SODIUM 141 mEq/L (134-144)
[2016-11-11 06:14] VITALS: RESP 18
[2016-11-11] MEDS: OMEGA-3 FATTY ACIDS 1,000 MG CAP PO SCH (06:38)
[2016-11-11 07:57] VITALS: BP 161/36; TEMP 98; O2SAT 94
[2016-11-11] MEDS: SODIUM FERRIC GLUCONAT/SUCROSE 125 MG in NS 100 ML IV SCH (08:45)
[2016-11-11] MEDS: CYCLOSPORINE, MODIFIED 25 MG CAP (NEORAL) PO SCH (08:46)
[2016-11-11] MEDS: predniSONE 5 MG TAB PO SCH (08:46)
[2016-11-11] MEDS: lamoTRIgine 100 MG TAB PO SCH (08:46)
[2016-11-11] MEDS: CALCITRIOL 0.25 MCG CAP PO SCH (08:46)
[2016-11-11] MEDS: ASPIRIN 81 MG CHEWABLE TAB PO SCH (08:46)
[2016-11-11] MEDS: OXcarbazepine 300 MG TAB PO SCH (08:47)
[2016-11-11] MEDS: CYCLOSPORINE MODIFIED 100 MG PO SCH (08:47)
[2016-11-11] MEDS: PANTOPRAZOLE SODIUM 40 MG TAB PO SCH (08:47)
[2016-11-11] MEDS: EZETIMIBE 10 MG TAB PO SCH (08:47)
[2016-11-11] MEDS: ALLOPURINOL 100 MG TAB PO SCH (08:48)
[2016-11-11] MEDS: MYCOPHENOLATE MOFETIL 250 MG CAP PO SCH (08:48)
[2016-11-11] MEDS: [UNRECOGNIZED DRUG - OTHER] PO SCH (08:49)
--- NOTE | 2016-11-11 09:07 | SOAPPROG ---
SOAP Progress Note Assessment/Plan: Assessment: Plan: 11/09/16 09:15 loose stool--c diff rejected because stool was formed, on flagyl empirically CKD--appreciate Nephrology input anemia--Fe studies pending, ferritin will likely be high as APR anxiety--likely biggest challenge--add IV dose of lorazepam this am HTN--improved BP VERY difficult to hear due to massive atherosclerosis 11/10/16 08:53 hypocalcemia--renal has ordered more IV Ca gluc CKD--creatinine at baseline, d/c extra fluids anemia with fe def--iv iron ordered emotional distress--likely aggravated by low Ca2+ and being in hospital. Ativan as needed 11/11/16 09:05 CKD with electrolyte disturbance--improved, d/w Dr Borja today. Will continue on po calcitriol 0.5 mcg daily. Outpt f/u with nephrology planned anemia with iron def--3 days of iron load performed cough--start albuterol and qvar--[facility] [place] anxiety--suspect this will improve upon d/c Subjective: Very anxious from being in hospital. Moderate coughing last night with some SOB. No F/C Bowels seemed to have normalized Objective: Vital Signs Temp Pulse Resp BP Pulse Ox 36.7 C 60 18 161/36 H 94 11/11/16 07:50 11/11/16 07:50 11/11/16 07:50 11/11/16 07:50 11/11/16 07:50 Laboratory Results 11/11/16 04:00 11/11/16 04:00 11/10/16 11/11/16 11/12/16 05:59 05:59 05:59 Intake Total 4190 3327 Output Total 1400 1900 300 Balance 2790 1427 -300 PT 18.2 SEC (12.0-15.0) H 11/09/16 04:04 INR 1.51 (0.83-1.16) H 11/09/16 04:04 Gen: tired, anxious, improves notably with mention of going home Lungs: coarse cough, mostly dry Heart: RRR Abd + bs soft, nt, mild distention LE's 2-3+ edema Alb 2.4 Ca 6.8 Corrects to 8.08 Hgb 8.3 stable CKD numbers stable ICD10 Worksheet Patient Problems: Problems Problem Status Onset Anemia Acute Diarrhea Acute Hypocalcemia Acute Subtherapeutic international normalized ratio (INR) Acute Elevated troponin Acute Heart block AV second degree Acute Hyponatremia Acute Pacemaker Acute Urinary tract infection Acute
--- NOTE | 2016-11-11 10:00 | GDS ---
[f rep st] DISCHARGE SUMMARY REASON FOR ADMISSION: Persistent diarrhea, concern for C difficile, profound electrolyte disturbanc es, particularly with hypocalcemia. HOSPITAL COURSE: The patient was admitted through the ER due to ongoing low-flow diarrhea and gener ally not feeling well. He had had loose stool for 3 weeks following longer course of amoxicillin fo r all tooth extraction. He was feeling more tired, more weak, and ultimately came to the ER. He wa s not able to further articulate other reasons for admission, just generally not feeling well. He w as found to be more anemic than his typical baseline. Hemoglobin was 8.0 and typical baseline is in the 10-miranda range. He was found to be iron deficient. His calcium was significantly low. He recei markus multiple grams of calcium gluconate, which eventually improved his calcium to 6.8. Albumin is 2 .4, correcting to just above 8. His bicarb remains to be low. His iron has been replaced IV. He had significant anxiety with being in the hospital. He anticipates this will improve with going home. He has developed somewhat of a dry cough, which historically has happened to him when he has been in the hospital. He will be started on albuterol plus QVAR at home. These prescriptions have been called to [facility] on [facility]. He will also be started on once daily calcitriol. This pres cription has also been called in. He will have office followup with me on Monday, recheck electroly sharmaine and see how his overall well being is doing. He will also see his tank calibrator, Dr. Mcnair, in the near future. /[id number]/MODL
[2016-11-11] MEDS ORDERED: WARFARIN SODIUM 1 MG TAB PO SCH (16:00)
[2017-05-01] MEDS ORDERED: Denosumab [Prolia] 60 MG SQ SCH (09:00)
== END 2016-11-11 10:27 | disposition home or self-care (01) | DRG 391 ==
LOC: F3E 19:25 → F2W 21:34
PROVIDERS: ADMIT Internal Medicine; ATTEND Internal Medicine
DX: A08.11 Acute gastroenteropathy due to Norwalk agent (principal); E83.51 Hypocalcemia; R05 Cough; D50.9 Iron deficiency anemia, unspecified; E10.22 Type 1 diabetes mellitus with diabetic chronic kidney disease; I12.0 Hypertensive chronic kidney disease with stage 5 chronic kidney disease or end stage renal disease; N18.6 End stage renal disease; F41.9 Anxiety disorder, unspecified; E78.5 Hyperlipidemia, unspecified; E10.39 Type 1 diabetes mellitus with other diabetic ophthalmic complication; H54.0 Blindness, both eyes; I48.0 Paroxysmal atrial fibrillation; I25.10 Atherosclerotic heart disease of native coronary artery without angina pectoris; G89.29 Other chronic pain; M10.9 Gout, unspecified; Z95.0 Presence of cardiac pacemaker; Z94.0 Kidney transplant status; Z94.83 Pancreas transplant status; Z79.01 Long term (current) use of anticoagulants
CPT/HCPCS: 96374; 97165-GO; G8987-GO-CJ; G8988-GO-CI; J0610; J2916; J7502; J7515

== ENCOUNTER 2016-11-28 13:36 | Emergency (ER) | payer OTHER ==
[2016-11-28] MEDS ORDERED: NS 1,000 ML IV ONE ×2 (13:45→14:35)
[2016-11-28 13:51] LABS: ABSOLUTE IMMATURE GRANULOCYTES 0.14 10^3/uL (0.00-0.10); ADD DIFF? NO; ADD MORPH? NO; ADD SCAN? NO; ATYPICAL LYMPHOCYTE FLAG 0 (0-99); FRAGMENT RBC FLAG 0 (0-99); HEMATOCRIT 32.5 % (40.0-51.0); HEMOGLOBIN 10.2 g/dL (13.7-17.5); LEFT SHIFT FLG 10 (0-99); LIPEMIA HEMOLYSIS FLAG 80 (0-99); MEAN CELL HEMOGLOBIN 32.8 pg (27.9-34.1); MEAN CELL HEMOGLOBIN CONCENTR. 31.4 g/dL (32.4-36.7); MEAN CELL VOLUME 104.5 fL (81.5-99.8); MEAN PLATELET VOLUME 10.3 fL (8.7-11.7); PLATELET CLUMPS FLAG 0 (0-99); PLATELET COUNT 202 10^3/uL (150-400); RED BLOOD CELL COUNT 3.11 10^6/uL (4.40-6.38); RED CELL DISTRIBUTION WIDTH 16.8 % (11.5-15.2)
[2016-11-28] MEDS ORDERED: ONDANSETRON 4 MG/2 ML VIAL IVP ONE (13:54)
--- NOTE | 2016-11-28 13:54 | EDPHY ---
H & P Time Seen by Provider: 11/28/16 13:36 HPI/ROS: CHIEF COMPLAINT: Nausea vomiting diarrhea HISTORY OF PRESENT ILLNESS: This 56-year-old man has a history of a kidney and pancreas transplant. He was admitted on November 08 for diarrhea. He was doing well until today when he had multiple episodes of nausea vomiting and diarrhea and inability to eat. Associated with some mild generalized abdominal cramping. Not able to take all of his medications today. Denies any recent sick contacts. Symptoms described as severe. REVIEW OF SYSTEMS: Eye: no change in vision, blind for many years ENT: no sore throat Cardiac: no chest pain or syncope Pulmonary: no cough or SOB Abdomen: HPI Musculoskeletal: no back pain Skin: Bruising on his shins which is normal for him. Neuro: no headache Constitutional: no fever : no urinary symptoms A comprehensive 10 point review of systems is otherwise negative aside from elements mentioned in the history of present illness. PAST MEDICAL HISTORY: History and physical from Dr. Martinez dated 11/08/2016 personally reviewed. Includes kidney and pancreas transplant, diabetes, hypertension and sick sinus syndrome with pacemaker, hyperlipidemia, gout, anxiety. Social history: Nonsmoker General Appearance: Alert and conversant, cooperative. Eyes: Blind with implants. ENT, Mouth: Dry mucous membranes Respiratory: Normal respiratory effort, breath sounds equal, lungs are clear to auscultation. Cardiovascular: Regular rate and rhythm. Gastrointestinal: Abdomen is soft and non tender. Neurological: Alert and oriented x3. Normally conversant. Normal movement and sensation in extremities. Skin: Bruising greater on the right chin than the left. Not hot to the touch and no lymphangitis. No fluctuance. Musculoskeletal: No peripheral edema and no joint swelling. No bony tenderness in extremities. Psychiatric: Not agitated. Emergency Department course/MDM: Patient is clinically dehydrated and received IV normal saline 2 L and Zofran 4 mg IV. Discussed with Blue at 1429 including details including laboratory values. His recommendation is to treat the patient symptomatically and discharge if possible, as the patient has severe anxiety when he is in the hospital. Patient and are in agreement with trying to do this. Patient received 0.5 mg Ativan. 1435: Still nontender abdomen. Additional IV morphine 4mg given as patient and family state that usually helps his symptoms. 1520: Still improving, wants to try orals. Would like to try and go home. Smoking Status: Never smoked Constitutional: Initial Vital Signs Temperature (C) 36.5 C 11/28/16 13:51 Heart Rate 88 11/28/16 13:51 Respiratory Rate 18 11/28/16 13:51 Blood Pressure 139/50 H 11/28/16 13:51 O2 Sat (%) 97 11/28/16 13:51 O2 Delivery Mode Room Air Allergies/Adverse Reactions: doxycycline Allergy (Intermediate, Verified 11/08/16 15:45) Other-Enter Comments promethazine HCl [From Phenergan] Allergy (Intermediate, Verified 11/08/16 15:45 ) Other-Enter Comments triazolam [From Halcion] Allergy (Intermediate, Verified 08/14/16 10:38) hallucinations levofloxacin [From Levaquin] Allergy (Mild, Verified 11/08/16 15:45) Vomiting IV CONTRAST Allergy (Intermediate, Uncoded 11/08/16 15:45) Home Medications: Medication Instructions Recorded Allopurinol [Allopurinol 100 MG 100 mg PO DAILY 05/02/16 (*)] Aspirin [Aspirin 81mg (*)] 81 mg PO DAILY 05/02/16 Cholestyramine (with Sugar) 4 gm PO DAILY PRN 05/02/16 [Cholestyramine Packet] Denosumab [Prolia] 60 mg SQ .TWICE YEARLY 05/02/16 Ezetimibe [Zetia 10 MG (*)] 10 mg PO DAILY 05/02/16 Herbals/Supplements -Info Only 1 ea PO DAILY 05/02/16 Pantoprazole Sodium [Protonix 40mg 40 mg PO DAILY 05/02/16 (*)] amLODIPine BESYLATE [Norvasc 2.5 2.5 mg PO DAILY 05/02/16 mg (*)] lamOTRIGine [Lamictal] 150 mg PO DAILY 05/02/16 lamoTRIgine [LamICTAL 100 MG (*)] 100 mg PO HS #0 tab 05/04/16 Colchicine [Colchicine (*)] 0.6 mg PO DAILY PRN 05/23/16 Mycophenolate Mofetil [Cellcept] 500 mg PO BID 05/23/16 Oxcarbazepine [Trileptal] 75 mg PO BID 05/23/16 cycloSPORINE, MODIFIED [Neoral 100 100 mg PO BID 09/19/16 MG (*)] cycloSPORINE, MODIFIED [Neoral 25 25 mg PO BID 05/23/16 MG (*)] [place]-3 Fatty Acids/Fish Oil 1 each PO QID 08/14/16 [[place] 3 Fish Oil Softgel] Sodium Bicarbonate [Na Bicarb] 3,250 mg PO TID 08/14/16 Warfarin Sodium [Coumadin 1MG (*)] 0.5 mg PO MOWEFR@1600 08/14/16 predniSONE 5 mg PO DAILY #0 tab 08/15/16 LORazepam [Ativan (*)] 0.5 mg PO HS PRN 11/08/16 Rinsal Mouth Rinse 1 chandler PO BID 11/08/16 oxyCODONE IR [Oxycodone Ir (*)] 5 mg PO Q6 PRN 11/08/16 Acetaminophen [Tylenol 325mg (*)] 650 mg PO Q4HRS PRN #0 tab 11/11/16 Calcitriol [Calcitriol (*)] 0.5 mcg PO DAILY #0 cap 11/11/16 Medical Decision Making Differential Diagnosis: Differential considered including but not limited to renal failure, gastroenteritis, hyponatremia, food poisoning, viral syndrome. - Data Points Laboratory Results: Laboratory Results 11/28/16 13:45 11/28/16 13:45 11/28/16 11/28/16 11/28/16 13:45 13:45 13:45 WBC 7.12 10^3/uL 10^3/uL (3.80-9.50) RBC 3.11 10^6/uL L 10^6/uL (4.40-6.38) Hgb 10.2 g/dL L g/dL (13.7-17.5) Hct 32.5 % L % (40.0-51.0) MCV 104.5 fL H fL (81.5-99.8) MCH 32.8 pg pg (27.9-34.1) MCHC 31.4 g/dL L g/dL (32.4-36.7) RDW 16.8 % H % (11.5-15.2) Plt Count 202 10^3/uL 10^3/uL (150-400) MPV 10.3 fL fL (8.7-11.7) Neut % (Auto) 87.2 % H % (39.3-74.2) Lymph % (Auto) 4.4 % L % (15.0-45.0) [place] % (Auto) 5.2 % % (4.5-13.0) Eos % (Auto) 0.8 % % (0.6-7.6) Baso % (Auto) 0.4 % % (0.3-1.7) Nucleat RBC Rel Count 0.0 % % (0.0-0.2) Absolute Neuts (auto) 6.21 10^3/uL 10^3/uL (1.70-6.50) Absolute Lymphs (auto) 0.31 10^3/uL L 10^3/uL (1.00-3.00) Absolute Monos (auto) 0.37 10^3/uL 10^3/uL (0.30-0.80) Absolute Eos (auto) 0.06 10^3/uL 10^3/uL (0.03-0.40) Absolute Basos (auto) 0.03 10^3/uL 10^3/uL (0.02-0.10) Absolute Nucleated RBC 0.00 10^3/uL 10^3/uL (0-0.01) Immature Gran % 2.0 % H % (0.0-1.1) Immature Gran # 0.14 10^3/uL H 10^3/uL (0.00-0.10) PT 14.9 SEC SEC (12.0-15.0) INR 1.17 H (0.83-1.16) Sodium 140 mEq/L mEq/L (134-144) Potassium 3.9 mEq/L mEq/L (3.5-5.2) Chloride 111 mEq/L H mEq/L (97-110) Carbon Dioxide 17 mEq/l L mEq/l (22-31) Anion Gap 12 mEq/L mEq/L (8-16) BUN 31 mg/dL H mg/dL (7-23) Creatinine 2.5 mg/dL H mg/dL (0.7-1.3) Estimated GFR 27 Glucose 109 mg/dL H mg/dL (70-100) Calcium 7.2 mg/dL L mg/dL (8.5-10.4) Medications Given: Discontinued Medications Hydrocortisone (Solucortef) 100 mg IVP EDNOW ONE Stop: 11/28/16 13:56 Last Admin: 11/28/16 14:22 Dose: 100 mg Sodium Chloride (Ns) 1,000 mls @ 0 mls/hr IV ONCE ONE PRN Reason: Wide Open Stop: 11/28/16 13:46 Last Admin: 11/28/16 13:57 Dose: 1,000 mls Sodium Chloride (Ns) 1,000 mls @ 0 mls/hr IV ONCE ONE PRN Reason: Wide Open Stop: 11/28/16 14:36 Last Admin: 11/28/16 14:43 Dose: 1,000 mls Lorazepam (Ativan Injection) 0.5 mg IVP EDNOW ONE Stop: 11/28/16 14:36 Last Admin: 11/28/16 14:43 Dose: 0.5 mg Ondansetron HCl (Zofran) 4 mg IVP EDNOW ONE Stop: 11/28/16 13:55 Last Admin: 11/28/16 14:22 Dose: 4 mg Departure - Departure Disposition: Home, Routine, Self-Care Clinical Impression: Vomiting and diarrhea Condition: Good Instructions: Acute Nausea and Vomiting (ED) Referrals: Tani Mcarthur PA [Primary Care Provider] - As per Instructions
[2016-11-28] MEDS ORDERED: HYDROCORTISONE 100 MG/2 ML VIAL IVP ONE (13:55)
[2016-11-28 14:14] LABS: ANION GAP 12 mEq/L (8-16); CALCIUM 7.2 mg/dL (8.5-10.4); CARBON DIOXIDE 17 mEq/l (22-31); CHLORIDE 111 mEq/L (97-110); CREATININE 2.5 mg/dL (0.7-1.3); GLOMERULAR FILTRATION RATE 27; GLUCOSE 109 mg/dL (70-100); POTASSIUM 3.9 mEq/L (3.5-5.2); SODIUM 140 mEq/L (134-144)
[2016-11-28 14:18] LABS: INR 1.17 (0.83-1.16); PROTIME(PATIENT) 14.9 SEC (12.0-15.0)
[2016-11-28 14:23] VITALS: TEMP 97.9
[2016-11-28] MEDS ORDERED: LORazepam 2 MG/ML INJ IVP ONE (14:35)
[2016-11-28 15:53] VITALS: BP 158/59; PULSE 59; RESP 16; O2SAT 100
== END 2016-11-28 15:51 | disposition home or self-care (01) ==
LOC: EDUNIT#
DX: R11.2 Nausea with vomiting, unspecified (principal); R19.7 Diarrhea, unspecified; E11.9 Type 2 diabetes mellitus without complications; I10 Essential (primary) hypertension; Z79.82 Long term (current) use of aspirin; Z79.01 Long term (current) use of anticoagulants; Z95.0 Presence of cardiac pacemaker
CPT/HCPCS: 96361; 96374; 96375; 99284; J2060; J2405

== ENCOUNTER 2016-11-29 07:29 | Observation (INO) | payer OTHER ==
--- NOTE | 2016-11-29 07:47 | EDPHY ---
H & P Stated Complaint: Vomiting, diarrhea, seen 11/28 HPI/ROS: CHIEF COMPLAINT: Vomiting, abdominal pain. HISTORY OF PRESENT ILLNESS: The patient is a 56-year-old male with significant history of diabetes status post renal transplant x2, pancreatic transplant, end stage renal disease, as well as blindness who returns to the emergency department with vomiting. The patient was seen here yesterday for emesis. He received IV Zofran, Morphine, and Ativan. His symptoms improved and he was discharged home. When he returned home the vomiting returned. He was able to eat a few crackers and giovanna yury. Last night he developed diarrhea, which he did not have earlier yesterday. He complains of abdominal discomfort that feels like a cramping sensation. He is on antirejection medications. He is anticoagulated on Warfarin. The patient was able to take all of his medications this morning. He has not had vomiting or diarrhea today. He feels generalized fatigue. REVIEW OF SYSTEMS: A ten point review of systems was performed and is negative with the exception of the items mentioned in the HPI. Source: Patient Exam Limitations: No limitations - Personal History Current Tetanus/Diphtheria Vaccine: Unsure Current Tetanus Diphtheria and Acellular Pertussis (TDAP): Unsure Tetanus Vaccine Date: < 10 years - Medical/Surgical History Hx Asthma: No Hx Chronic Respiratory Disease: No Hx Diabetes: Yes Hx Cardiac Disease: Yes Hx Renal Disease: No Hx Cirrhosis: No Hx Alcoholism: No Hx HIV/AIDS: No Hx Splenectomy or Spleen Trauma: No Other PMH: Past medical records obtained from [facility]&P dated 11/04/16 when patient was admitted by Dr. Fry. 1. Type I diabetes. 2. Pancreas transplant. 3. Kidney transplant x2. 4. Chronic kidney disease. 5. Hypertension. 6. Pacemaker. 7. Atrial fibrillation. 8. Gout. 9. Blind. 10. Chronic pain. 11. Peripheral neuropathy. 12. Cholecystectomy - Social History Smoking Status: Never smoked Alcohol Use: Rarely Drug Use: None Additional Social History: Rare alcohol use. Nonsmoker. His significant other is with him in the room. - Physical Exam Exam: General Appearance: Alert. Vital signs reviewed. Blood pressure 146/86. Eyes: Patient is blind, his eyes remained closed throughout the examination. ENT, Mouth: Mucous membranes are slightly dry, no oropharyngeal erythema or edema. Neck: No lymphadenopathy, supple. Respiratory: Lungs are clear to auscultation; no wheezes, rales, or rhonchi. Cardiovascular: Regular rate and rhythm; no murmur, rub, or gallop. Gastrointestinal: Abdomen is soft, diffuse tenderness. No guarding. Midline incisional hernia above the umbilicus, not incarcerated. Bowel sounds are diminished. Skin: Warm and dry, no rashes on exposed skin, normal color. Back: Nontender to palpation over the thoracolumbar spine. No CVAT. Extremities: Bilateral lower extremity pitting edema, no calf tenderness or swelling. Neurological: Alert and oriented. Moving all four extremities easily and equally. Psychiatric: Normal affect. Constitutional: Initial Vital Signs Temperature (C) 37.1 C 11/29/16 07:33 Heart Rate 93 11/29/16 07:33 Respiratory Rate 18 11/29/16 07:33 Blood Pressure 146/86 H 11/29/16 07:33 O2 Sat (%) 97 11/29/16 07:33 O2 Delivery Mode Room Air Allergies/Adverse Reactions: doxycycline Allergy (Intermediate, Verified 11/29/16 07:37) Other-Enter Comments promethazine HCl [From Phenergan] Allergy (Intermediate, Verified 11/29/16 07:37 ) Other-Enter Comments triazolam [From Halcion] Allergy (Intermediate, Verified 11/29/16 07:37) hallucinations levofloxacin [From Levaquin] Allergy (Mild, Verified 11/29/16 07:37) Vomiting IV CONTRAST Allergy (Intermediate, Uncoded 11/08/16 15:45) Home Medications: Medication Instructions Recorded Allopurinol [Allopurinol 100 MG 100 mg PO DAILY 05/02/16 (*)] Cholestyramine (with Sugar) 4 gm PO Q6 PRN 05/02/16 [Cholestyramine Packet] Denosumab [Prolia] 60 mg SQ .TWICE YEARLY 05/02/16 Ezetimibe [Zetia 10 MG (*)] 10 mg PO DAILY 05/02/16 Herbals/Supplements -Info Only 1 ea PO DAILY 05/02/16 Pantoprazole Sodium [Protonix 40mg 40 mg PO DAILY 05/02/16 (*)] amLODIPine BESYLATE [Norvasc 2.5 2.5 mg PO DAILY 05/02/16 mg (*)] lamOTRIGine [Lamictal] 150 mg PO DAILY 05/02/16 lamoTRIgine [LamICTAL 100 MG (*)] 100 mg PO HS #0 tab 05/04/16 Mycophenolate Mofetil [Cellcept] 500 mg PO BID 05/23/16 cycloSPORINE, MODIFIED [Neoral 100 100 mg PO BID 05/23/16 MG (*)] cycloSPORINE, MODIFIED [Neoral 25 25 mg PO BID 05/23/16 MG (*)] [place]-3 Fatty Acids/Fish Oil 1 each PO QID 08/14/16 [[place] 3 Fish Oil Softgel] Sodium Bicarbonate [Na Bicarb] 3,250 mg PO TID 08/14/16 Warfarin Sodium [Coumadin 1MG (*)] 0.5 mg PO MOTUWETHFR@16 08/14/16 predniSONE 5 mg PO DAILY #0 tab 08/15/16 LORazepam [Ativan (*)] 0.5 mg PO DAILY PRN 11/08/16 oxyCODONE IR [Oxycodone Ir (*)] 5 - 10 mg PO Q3 PRN 11/08/16 Calcitriol [Calcitriol (*)] 0.5 mcg PO DAILY #0 cap 11/11/16 Aspirin EC [Aspirin EC 81 mg (*)] 81 mg PO DAILY 11/29/16 OLANZapine [ZyPREXA 2.5 mg (*)] 1.25 mg PO HS 11/29/16 clonazePAM [Klonopin (*)] 0.5 mg PO HS 11/29/16 Medical Decision Making - Diagnostics Imaging: Study: CT of the abdomen/pelvis. Indication: Abdominal pain, vomiting. The study was read by the radiologist, Dr. Garza. I viewed the images myself on the PACS system. Results: 1. Circumferential wall thickening of the hepatic flexure of the colon , as well as the splenic flexure and descending colon which may resent multifocal nonspecific colitis, infectious/inflammatory versus ischemic. Recommend follow up colonoscopy. 2. Extensive arteriovascular calcifications as described above. Atherosclerotic aorta without aneurysm. 3. Renal transplant kidney in the left side of the pelvis without obstruction or nephrolithiasis. 4. Pancreatic transplant in the right side of the pelvis without peripancreatic fluid. 5. No bowel obstruction, focal abscess, or pneumoperitoneum. ED Course/Re-evaluation: The patient has a significant past medical history of kidney/pancreatic transplant secondary to type 1 diabetes. The patient was admitted earlier this month on 11/08/16 for 3 weeks of diarrhea. He was seen here yesterday for vomiting. The patient received IV Zofran and IV morphine yesterday and his symptoms were improved. He went home and the vomiting started again. He returns today with continued nausea and vomiting (he has not vomited today but complains of abdominal pain and persistent nausea). IV was established, patient received 4mg Zofran, 4mg Morphine, and 500 mL normal saline for dehydration. Plan to check CBC, COAG, and CHEM. Dr. López is aware that the patient is in the emergency department. Plan to admit. 8:48 a.m.: I spoke to Dr. López. Plan for CT abdomen to rule out bowel obstruction. I feel that he will need admission for continued hydration and antiemetics. He was able to keep down today's medications but continues with persistent nausea. He continues with mild diffuse abdominal pain on palpation, no peritoneal signs. His gallbladder has been removed. He does have an appendix but I doubt that this is appendicitis. I do not feel that he will be able to adequately take care of himself at home, given his multiple medical problems and overall fragility. CT scan does not show bowel obstruction. Please see formal report. Patient was seen in the emergency department by Dr. Martinez. Differential Diagnosis: I considered a differential diagnosis that includes but is not limited to gastroenteritis (viral or bacterial), gastritis, pancreatitis, appendicitis, urinary tract infection, bowel obstruction, and rejection of transplanted organs. - Data Points Laboratory Results: Laboratory Results 11/29/16 08:00 11/29/16 08:00 11/29/16 11/29/16 11/29/16 08:00 08:00 08:00 WBC 6.60 10^3/uL 10^3/uL (3.80-9.50) RBC 3.12 10^6/uL L 10^6/uL (4.40-6.38) Hgb 10.1 g/dL L g/dL (13.7-17.5) Hct 31.3 % L % (40.0-51.0) MCV 100.3 fL H fL (81.5-99.8) MCH 32.4 pg pg (27.9-34.1) MCHC 32.3 g/dL L g/dL (32.4-36.7) RDW 16.3 % H % (11.5-15.2) Plt Count 207 10^3/uL 10^3/uL (150-400) MPV 9.5 fL fL (8.7-11.7) Neut % (Auto) 81.9 % H % (39.3-74.2) Lymph % (Auto) 8.3 % L % (15.0-45.0) [place] % (Auto) 7.1 % % (4.5-13.0) Eos % (Auto) 0.6 % % (0.6-7.6) Baso % (Auto) 0.3 % % (0.3-1.7) Nucleat RBC Rel Count 0.0 % % (0.0-0.2) Absolute Neuts (auto) 5.40 10^3/uL 10^3/uL (1.70-6.50) Absolute Lymphs (auto) 0.55 10^3/uL L 10^3/uL (1.00-3.00) Absolute Monos (auto) 0.47 10^3/uL 10^3/uL (0.30-0.80) Absolute Eos (auto) 0.04 10^3/uL 10^3/uL (0.03-0.40) Absolute Basos (auto) 0.02 10^3/uL 10^3/uL (0.02-0.10) Absolute Nucleated RBC 0.00 10^3/uL 10^3/uL (0-0.01) Immature Gran % 1.8 % H % (0.0-1.1) Immature Gran # 0.12 10^3/uL H 10^3/uL (0.00-0.10) PT 15.6 SEC H SEC (12.0-15.0) INR 1.24 H (0.83-1.16) APTT 25.6 SEC SEC (23.0-38.0) Sodium 138 mEq/L mEq/L (134-144) Potassium 3.6 mEq/L mEq/L (3.5-5.2) Chloride 110 mEq/L mEq/L (97-110) Carbon Dioxide 19 mEq/l L mEq/l (22-31) Anion Gap 9 mEq/L mEq/L (8-16) BUN 24 mg/dL H mg/dL (7-23) Creatinine 2.2 mg/dL H mg/dL (0.7-1.3) Estimated GFR 31 Glucose 83 mg/dL mg/dL (70-100) Calcium 6.8 mg/dL L mg/dL (8.5-10.4) Total Bilirubin 1.1 mg/dL mg/dL (0.1-1.4) AST 22 IU/L IU/L (17-59) ALT 36 IU/L IU/L (21-72) Alkaline Phosphatase 53 IU/L IU/L (38-126) Total Protein 5.3 g/dL L g/dL (6.3-8.2) Albumin 3.3 g/dL L g/dL (3.5-5.0) Medications Given: Discontinued Medications Calcium Gluconate (Calcium Gluconate) 1 gm IVP EDNOW ONE Stop: 11/29/16 10:08 Last Admin: 11/29/16 10:28 Dose: 1 gm Morphine Sulfate (Morphine) 4 mg IVP EDNOW ONE Stop: 11/29/16 08:08 Last Admin: 11/29/16 08:19 Dose: 4 mg Morphine Sulfate (Morphine) 4 mg IVP EDNOW ONE Stop: 11/29/16 08:45 Last Admin: 11/29/16 08:49 Dose: 4 mg Ondansetron HCl (Zofran) 4 mg IVP EDNOW ONE Stop: 11/29/16 08:08 Last Admin: 11/29/16 08:19 Dose: 4 mg Prednisone (Prednisone) 20 mg PO ONCE ONE Stop: 11/29/16 13:46 Last Admin: 11/29/16 14:01 Dose: 20 mg Departure - Departure Disposition: [facility] Inpatient Acute Clinical Impression: Vomiting Qualifiers: Vomiting type: unspecified Vomiting Intractability: non-intractable Nausea presence: with nausea Qualified Code(s): R11.2 - Nausea with vomiting, unspecified Diarrhea Qualifiers: Diarrhea type: unspecified type Qualified Code(s): R19.7 - Diarrhea, unspecified Abdominal pain Qualifiers: Abdominal location: generalized Qualified Code(s): R10.84 - Generalized abdominal pain Condition: Fair Report Scribed for: Edith Aguayo Report Scribed by: Farrah Weeks Date of Report: 11/29/16 Time of Report: 08:10 Physician Review and Approval Statement: 11/29/16 07:47 Portions of this note were transcribed by the biomedical service engineer. I, Dr. Edith Aguayo, personally performed the history, physical exam, and medical decision- making; and confirmed the accuracy of the information in the transcribed note.
[2016-11-29] MEDS ORDERED: ONDANSETRON 4 MG/2 ML VIAL IVP ONE (08:07)
[2016-11-29 08:12] LABS: % IMMATURE GRANULYOCYTES 1.8 % (0.0-1.1); ABSOLUTE IMMATURE GRANULOCYTES 0.12 10^3/uL (0.00-0.10); ADD DIFF? NO; ADD MORPH? NO; ADD SCAN? NO; ATYPICAL LYMPHOCYTE FLAG 0 (0-99); FRAGMENT RBC FLAG 10 (0-99); HEMATOCRIT 31.3 % (40.0-51.0); HEMOGLOBIN 10.1 g/dL (13.7-17.5); LEFT SHIFT FLG 0 (0-99); LIPEMIA HEMOLYSIS FLAG 80 (0-99); MEAN CELL HEMOGLOBIN 32.4 pg (27.9-34.1); MEAN CELL HEMOGLOBIN CONCENTR. 32.3 g/dL (32.4-36.7); MEAN CELL VOLUME 100.3 fL (81.5-99.8); MEAN PLATELET VOLUME 9.5 fL (8.7-11.7); PLATELET CLUMPS FLAG 30 (0-99); PLATELET COUNT 207 10^3/uL (150-400); RED BLOOD CELL COUNT 3.12 10^6/uL (4.40-6.38); RED CELL DISTRIBUTION WIDTH 16.3 % (11.5-15.2)
[2016-11-29 08:18] LABS: ALANINE AMINOTRANSFERASE 36 IU/L (21-72); ALBUMIN 3.3 g/dL (3.5-5.0); ALKALINE PHOSPHATASE 53 IU/L (38-126); ANION GAP 9 mEq/L (8-16); ASPARTATE AMINOTRANSFERASE 22 IU/L (17-59); BILIRUBIN,TOTAL 1.1 mg/dL (0.1-1.4); CALCIUM 6.8 mg/dL (8.5-10.4); CARBON DIOXIDE 19 mEq/l (22-31); CHLORIDE 110 mEq/L (97-110); CREATININE 2.2 mg/dL (0.7-1.3); GLOMERULAR FILTRATION RATE 31; GLUCOSE 83 mg/dL (70-100); POTASSIUM 3.6 mEq/L (3.5-5.2); SODIUM 138 mEq/L (134-144); TOTAL PROTEIN 5.3 g/dL (6.3-8.2)
[2016-11-29 08:20] LABS: INR 1.24 (0.83-1.16); PROTIME(PATIENT) 15.6 SEC (12.0-15.0)
[2016-11-29 08:21] LABS: APTT 25.6 SEC (23.0-38.0)
[2016-11-29] MEDS ORDERED: ACETAMINOPHEN 325 MG TAB PO PRN (10:04)
[2016-11-29] MEDS ORDERED: POLYETHYLENE GLYCOL 3350 17 GM PKT PO PRN (10:04)
[2016-11-29] MEDS ORDERED: MAGNESIUM HYDROXIDE 30 ML UDCUP PO PRN (10:04)
[2016-11-29] MEDS ORDERED: BISACODYL 10 MG SUPP PR PRN (10:04)
[2016-11-29] MEDS ORDERED: LACTULOSE 20 GM/30 ML UDCUP PO PRN (10:04)
[2016-11-29] MEDS ORDERED: ONDANSETRON DISINTEGRATING 4 MG TAB PO PRN (10:04)
[2016-11-29] MEDS ORDERED: CALCIUM GLUC 10% 1 GM/10 ML VIAL IVP ONE (10:07)
--- NOTE | 2016-11-29 10:17 | SOAPPROG ---
SOAP Progress Note Assessment/Plan: Assessment: 56 yo male s/p renal and pancreatic transplant on immunosuppression meds w/ h/o anemia and CKD f/b nephrology, who comes in w/ c/o n/v. He was in the ER yesterday w same complaint - had fluids and labs yesterday felt better and d/c home. Returns today b/c still w/ nausea and anti-emetic meds not helping, stomach uncomfortable, concerns of sbo vs gastroenteritis. He again had labs which were near baseline for him, sent for CT non contrast which showed thickening of hepatic flexure of colon as well as splenic flexure and descending colon likely c/w infectious colitis, but otherwise no obstruction/ diverticulitis/other concerning etiology. Given that he was unable to consume fluids at home, didn't get better after ivf yesterday in ER, will plan to admit to OBS for now w/ ivf and morphine which works better than anti-emetics for him , assess, see if he improves and is able to take po intake and feel better. -n/v - ivf, morphine, anti-emetics -anemia - stable -ckd - rec'd non contrast ct - on fluids, replace calcium, follow electrolytes -h/o DM - s/p pancreatic transplant, blind from DM -Afib - on coumadin - nephrology wants his INR around 1.5 (Dr. Mcnair) -gerd - ppi -elev chol - lipitor/zetia -mood - lamotrigine, trileptal, dbz for anxiety in addition prn -dispo - place in obs, likely will respond to ivf, re-assess and make sure able to take in po's. Plan: 11/29/16 10:08 Subjective: Feeling much better w/ ivf and morphine, but still shaky, worried about going home as he didn't do well yesterday after d/c from ER Objective: Vital Signs Temp Pulse Resp BP Pulse Ox 37.1 C 82 16 166/55 H 98 11/29/16 07:33 11/29/16 08:38 11/29/16 08:38 11/29/16 08:38 11/29/16 08:38 PT 15.6 SEC (12.0-15.0) H 11/29/16 08:00 INR 1.24 (0.83-1.16) H 11/29/16 08:00 Gen: alert, spouse at bedside, affect brighter than earlier today Heent: blind from dm Neck: soft supple Chest: cta b CV: pacer on L chest, irreg irreg Abd: mildly distended, nl bs, non tender, scarring from panc/renal tp Ext: 1+ ble Neuro: A&O x 3 Psych: appropriate, communicative ICD10 Worksheet Patient Problems: Problems Problem Status Onset Heart block AV second degree Acute Elevated troponin Acute Pacemaker Acute Urinary tract infection Acute Hyponatremia Acute Hypocalcemia Acute Subtherapeutic international normalized ratio (INR) Acute Anemia Acute Diarrhea Acute Vomiting Acute Diarrhea Acute Abdominal pain Acute
[2016-11-29 12:15] VITALS: RESP 16
[2016-11-29] MEDS: NS 1,000 ML IV SCH ×2 (12:20→21:39)
[2016-11-29] MEDS ORDERED: predniSONE 20 MG TAB PO ONE (13:45)
[2016-11-29] MEDS ORDERED: oxyCODONE IR 5 MG TAB PO PRN (13:46)
[2016-11-29] MEDS ORDERED: CHOLESTYRAMINE/SUCROSE 4 GM PKT PO PRN (13:46)
[2016-11-29] MEDS ORDERED: LORazepam 0.5 MG TAB PO PRN (13:46)
--- NOTE | 2016-11-29 14:43 | GHP ---
[f rep st] HISTORY AND PHYSICAL DATE OF ADMISSION: 11/29/2016 CHIEF COMPLAINT: Vomiting, abdominal pain. HISTORY OF PRESENT ILLNESS: Patient is a 56-year-old male with a significant medical history, inclu ding status post pancreatic transplant for diabetes and renal transplant x2 who yesterday developed nausea, vomiting, and abdominal discomfort. He presented to the ER and was treated with fluids, Zof ran, morphine, and Ativan. He felt much better. His labs were checked, and they were normal, and montserrat medina was discharged home. However, unfortunately, the nausea and vomiting returned with some diarrhea last night as well. Today, his stomach felt more uncomfortable, and the antiemetics just were not w orking. He was unable to take much for p.o. intake, which is concerning given his immunosuppressive and anti-rejection medications from his transplant. He had called Dr. López front desk representative, who recomm ended that he return to the ER. In the ER, he received IV fluids, antiemetics, and morphine again, which made him feel much better. He was sent for a noncontrast CT given his chronic kidney disease. This was noncontrast, which showed some thickening of the hepatic flexure, descending colon, and s plenic flexure areas of his colon. He does have diverticular disease, but no diverticulitis. No ma sses or obstructions. His labs, again, were normal for him with his baseline known anemia, and his calcium also was a little bit low, which was a problem during his last hospitalization. PAST MEDICAL HISTORY: Significant for history of type 1 diabetes, status post pancreatic transplant in 1992, kidney failure secondary to diabetes, status post transplant in 1992 with a repeat transpl ant in 2001, chronic kidney disease followed closely by Dr. Mcnair with a baseline creatinine around 2 to 2.5, hypertension, atrial fibrillation, sick sinus syndrome, status post pacemaker placement i n 2013, hyperlipidemia, gout, hypertension, anxiety. PAST SURGICAL HISTORY: Transplants as discussed above, dental surgery about 2 months ago, pacemaker 2013, eye surgeries, and foot surgery. SOCIAL HISTORY: Rare alcohol. Nonsmoker. He is . FAMILY HISTORY: Father secondary to stroke, had a history of osteoarthritis with hip and knee replacements. Mom is alive. History of low platelets and cirrhosis. Brother with prostate cancer. Sister with thyroid surgery. REVIEW OF SYSTEMS: Positive for fatigue. Denies fevers. Has had chills with the vomiting. HEENT: Significant for blindness secondary to diabetes. RESPIRATORY: Denies cough, shortness of breath, wheezing. CARDIOVASCULAR: Significant for a history of paroxysmal atrial fibrillation, but he miri d he is not symptomatic when he is in atrial fibrillation. GI: Positive for nausea and vomiting, a s above. One episode of diarrhea last night as well. MUSCULOSKELETAL: Positive for weakness and f atigue in general. : Negative. NEUROLOGIC: Negative. ALLERGIC: Negative. PSYCHIATRIC: Has a history of anxiety and is on mood stabilizers. PHYSICAL EXAMINATION: VITAL SIGNS: Blood pressure 137/60, heart rate 65, respiratory rate 16. He is 100% on room air. GENERAL: Pleasant male with brighter affect than described earlier in the ER, as he is feeling better now. HEENT: Significant for blindness. CHEST: Clear to auscultation lg aterally. No rhonchi, wheezes or rales. CARDIOVASCULAR: Irregularly regular. Can palpate a pacer on his left upper chest. ABDOMEN: Mildly distended with scarring secondary to his pancreatic and renal transplants. He has normal bowel sounds and is nontender. EXTREMITIES: 1+ bilateral lower e xtremity edema. NEUROLOGIC: Alert and oriented x3. PSYCHIATRIC: Appropriate, communicative, some what anxious. LABS: Significant for anemia with a hemoglobin of 10, hematocrit 31. Chemistry significant for cre atinine of 2.2 and calcium of 6.8. Coags: INR 1.24. ASSESSMENT: A 56-year-old male with multiple medical issues, including status post kidney transplan t, pancreatic transplant, on chronic immunosuppressive medications, chronic kidney disease, chronic anemia, who presents with nausea and vomiting 2 days in a row to the ER without being able to contro l this at home. PLAN BY PROBLEM: 1. Nausea and vomiting. We will admit him to observation and place him on IV fluids. Antiemetics and morphine seem to really help slow the cycle down for him. Will order this p.r.n. Will give str ess dose steroids as well, as he typically has needed these in the past when he gets ill. 2. Anemia. This is chronic for him and at baseline stable, is followed by Dr. Mcnair in Nephrology . 3. Chronic kidney disease. Of note, he received a noncontrast CT. He is on IV fluids. His creati nine currently is at his baseline. His calcium is low. This was replaced in order to replace this with calcium gluconate. Will recheck electrolytes later in the day. 4. History of diabetes, status post pancreatic transplant. Not requiring any insulin since then. 5. Atrial fibrillation. He is on Coumadin per Nephrology, Dr. Mcnair. He wants his INR around 1.5 . He is slightly decreased right now, but has been unable to keep his Coumadin down orally. Will r estart this now that his nausea is better. 6. Gastroesophageal reflux disease. Continue on proton pump inhibitor. 7. Elevated cholesterol. Continue on Lipitor and Zetia. 8. Mood issues. He will be continued on his medications, which include: Lamictal 150 mg daily, Tr ileptal 75 mg twice a day, and Ativan 0.5 q.h.s. for insomnia and anxiety as needed. 9. Deep vein thrombosis prophylaxis. He is on Coumadin. Will also place on RUPERTO hose for his lower extremity edema. DISPOSITION: Will place the patient in observation currently as hopefully with IV fluids and electr olyte replacement, he will be able to take his medications and turn this around pretty quickly with possibility of discharge home tomorrow. MEDICATIONS: Include: 1. Calcitriol 0.5 mcg daily. 2. Tylenol p.r.n. 3. Zetia 10 mg daily. 4. Protonix 40 mg daily. 5. Prolia 60 mg subcu twice yearly. 6. Lamictal 150 daily. 7. Cholestyramine 4 g daily p.r.n. 8. Aspirin 81 mg daily. 9. Amlodipine 2.5 daily. 10. Allopurinol 100 daily. 11. A second Lamictal 100 mg q.h.s. 12. 25 mg twice daily. 13. Colchicine 0.6 mg p.r.n. gout. 14. Trileptal 75 b.i.d. 15. Mycophenolate mofetil 500 mg twice daily. 16. 100 mg twice daily. 17. Sodium bicarbonate 3250 mg oral t.i.d. 18. [place]-3 fish oil one 4 times daily. 19. Coumadin 0.5 mg Mondays, Wednesdays, Fridays at 4 p.m. 20. Prednisone 5 mg daily. 21. Rinse and spit oral mouthwash twice daily. 22. Ativan 0.5 mg q.h.s. 23. Oxycodone IR 5 mg up to q.6 hours p.r.n. /[id number]/MODL
[2016-11-29] MEDS ORDERED: FISH OIL PO SCH (16:00)
[2016-11-29] MEDS ORDERED: OMEGA PO SCH (16:00)
[2016-11-29] MEDS ORDERED: WARFARIN SODIUM 1 MG TAB PO SCH (16:00)
[2016-11-29] MEDS ORDERED: FATTY ACIDS PO SCH (16:00)
[2016-11-29 16:05] LABS: ANION GAP 8 mEq/L (8-16); CALCIUM 6.3 mg/dL (8.5-10.4); CARBON DIOXIDE 17 mEq/l (22-31); CHLORIDE 113 mEq/L (97-110); GLOMERULAR FILTRATION RATE 34; GLUCOSE 96 mg/dL (70-100); POTASSIUM 3.7 mEq/L (3.5-5.2); SODIUM 138 mEq/L (134-144)
[2016-11-29] MEDS: OMEGA-3 FATTY ACIDS 1,000 MG CAP PO SCH ×2 (16:34→21:28)
[2016-11-29] MEDS: SODIUM BICARBONATE 650 MG TAB PO SCH ×2 (16:35→21:28)
[2016-11-29] MEDS: ONDANSETRON 4 MG/2 ML VIAL IVP PRN ×2 (17:08→21:39)
[2016-11-29] MEDS ORDERED: CALCIUM GLUCONATE 50 ML IV ONE (17:28)
[2016-11-29] MEDS ORDERED: OLANZapine 2.5 MG TAB PO SCH (21:00)
[2016-11-29] MEDS ORDERED: clonazePAM 0.5 MG TAB PO SCH (21:00)
[2016-11-29] MEDS ORDERED: NON-FORMULARY NEW DRUG (Mycophenolate Mofetil [Cellcept] 500 MG) PO SCH (21:00)
[2016-11-29] MEDS ORDERED: lamoTRIgine 100 MG TAB PO SCH (21:00)
[2016-11-29] MEDS: MYCOPHENOLATE MOFETIL 250 MG CAP PO SCH (21:28)
[2016-11-29] MEDS: SENNOSIDES/DOCUSATE SODIUM TAB PO SCH (21:29)
[2016-11-29] MEDS: CYCLOSPORINE, MODIFIED 25 MG CAP (NEORAL) PO SCH (21:39)
[2016-11-29] MEDS: CYCLOSPORINE MODIFIED 100 MG PO SCH (21:39)
[2016-11-30] MEDS: OMEGA-3 FATTY ACIDS 1,000 MG CAP PO SCH ×2 (05:29→11:59)
[2016-11-30] MEDS: NS 1,000 ML IV SCH (05:29)
[2016-11-30 05:52] LABS: % IMMATURE GRANULYOCYTES 2.1 % (0.0-1.1); ABSOLUTE IMMATURE GRANULOCYTES 0.11 10^3/uL (0.00-0.10); ADD DIFF? NO; ADD MORPH? NO; ADD SCAN? NO; ATYPICAL LYMPHOCYTE FLAG 0 (0-99); FRAGMENT RBC FLAG 10 (0-99); HEMATOCRIT 28.5 % (40.0-51.0); HEMOGLOBIN 9.1 g/dL (13.7-17.5); LEFT SHIFT FLG 10 (0-99); LIPEMIA HEMOLYSIS FLAG 80 (0-99); MEAN CELL HEMOGLOBIN 32.9 pg (27.9-34.1); MEAN CELL HEMOGLOBIN CONCENTR. 31.9 g/dL (32.4-36.7); MEAN CELL VOLUME 102.9 fL (81.5-99.8); MEAN PLATELET VOLUME 10.2 fL (8.7-11.7); PLATELET CLUMPS FLAG 0 (0-99); PLATELET COUNT 182 10^3/uL (150-400); RED BLOOD CELL COUNT 2.77 10^6/uL (4.40-6.38); RED CELL DISTRIBUTION WIDTH 16.3 % (11.5-15.2)
[2016-11-30 05:53] LABS: ANION GAP 7 mEq/L (8-16); CALCIUM 6.3 mg/dL (8.5-10.4); CARBON DIOXIDE 19 mEq/l (22-31); CHLORIDE 114 mEq/L (97-110); CREATININE 2.1 mg/dL (0.7-1.3); GLOMERULAR FILTRATION RATE 33; GLUCOSE 91 mg/dL (70-100); SODIUM 140 mEq/L (134-144)
[2016-11-30 07:19] VITALS: BP 142/82; PULSE 61; TEMP 98.6; O2SAT 92
[2016-11-30] MEDS ORDERED: CALCIUM GLUCONATE 2 GM in D5W 50 ML IV ONE (07:33)
[2016-11-30] MEDS: MYCOPHENOLATE MOFETIL 250 MG CAP PO SCH (08:42)
[2016-11-30] MEDS: SODIUM BICARBONATE 650 MG TAB PO SCH (08:50)
[2016-11-30] MEDS: SENNOSIDES/DOCUSATE SODIUM TAB PO SCH (08:50)
[2016-11-30] MEDS: CYCLOSPORINE, MODIFIED 25 MG CAP (NEORAL) PO SCH (08:55)
[2016-11-30] MEDS: CYCLOSPORINE MODIFIED 100 MG PO SCH (08:55)
[2016-11-30] MEDS ORDERED: predniSONE 5 MG TAB PO SCH (09:00)
[2016-11-30] MEDS ORDERED: ALLOPURINOL 100 MG TAB PO SCH (09:00)
[2016-11-30] MEDS ORDERED: lamoTRIgine 100 MG TAB PO SCH (09:00)
[2016-11-30] MEDS ORDERED: NON-FORMULARY NEW DRUG (Lamotrigine [Lamictal] 150 MG) PO SCH (09:00)
[2016-11-30] MEDS ORDERED: PANTOPRAZOLE SODIUM 40 MG TAB PO SCH (09:00)
[2016-11-30] MEDS ORDERED: CALCITRIOL 0.25 MCG CAP PO SCH (09:00)
[2016-11-30] MEDS ORDERED: Herbals/Supplements -Info Only PO SCH (09:00)
[2016-11-30] MEDS ORDERED: ASPIRIN EC 81 MG TAB PO SCH (09:00)
[2016-11-30] MEDS ORDERED: EZETIMIBE 10 MG TAB PO SCH (09:00)
--- NOTE | 2016-11-30 09:49 | SOAPPROG ---
SOAP Progress Note Assessment/Plan: Assessment: Plan: 11/30/16 09:51 Nausea/vomiting: resolved. Taking PO well. Feels ready to go home. Has had similar episodes in past. Would like rx for zofran, liquid morphine to use if recurs. The morphine especially helped to slow his GI tract. Anemia: H/H down some today, likely due to IVF hydration. Chronic anemia due to CKD. CKD: Ca remains low. Creatinine stable. Receiving more Ca now. Dispo: will d/c today with close f/u by Dr. Mcnair 11/30/16 09:53 Subjective: Feeling good this morning, to his surprise. Went to bed cold last night, then woke about 1 am in a sweat, but felt great. Got up, changed, went back to bed, and got up this morning still feeling good. Has been eating. No further nausea, vomiting. Receiving calcium this morning. Objective: Vital Signs Temp Pulse Resp BP Pulse Ox 37.0 C 61 16 142/82 H 92 11/30/16 07:14 11/30/16 07:14 11/30/16 07:14 11/30/16 08:46 11/30/16 07:14 Laboratory Results 11/30/16 05:23 11/30/16 05:23 11/29/16 11/30/16 12/01/16 05:59 05:59 05:59 Intake Total 3057 Output Total 1050 Balance 2006 PT 15.6 SEC (12.0-15.0) H 11/29/16 08:00 INR 1.24 (0.83-1.16) H 11/29/16 08:00 General: well-appearing, cheerful Neck: no masses, adenopathy Lungs: clear Cardiovascular: RRR without murmur Abdomen: +bowel sounds, soft, NT Extremities: mild edema ICD10 Worksheet Patient Problems: Problems Problem Status Onset Abdominal pain Acute Diarrhea Acute Vomiting Acute Anemia Acute Diarrhea Acute Elevated troponin Acute Heart block AV second degree Acute Hypocalcemia Acute Hyponatremia Acute Pacemaker Acute Subtherapeutic international normalized ratio (INR) Acute Urinary tract infection Acute
== END 2016-11-30 12:38 | disposition home or self-care (01) ==
LOC: F3E 11:36
PROVIDERS: ADMIT Internal Medicine; ATTEND Internal Medicine
DX: R11.2 Nausea with vomiting, unspecified (principal); I12.0 Hypertensive chronic kidney disease with stage 5 chronic kidney disease or end stage renal disease; N18.6 End stage renal disease; E10.22 Type 1 diabetes mellitus with diabetic chronic kidney disease; I48.91 Unspecified atrial fibrillation; H54.0 Blindness, both eyes; E78.5 Hyperlipidemia, unspecified; Z94.0 Kidney transplant status; Z94.83 Pancreas transplant status; Z79.01 Long term (current) use of anticoagulants; Z95.0 Presence of cardiac pacemaker
CPT/HCPCS: 74176; 96374; 96375; 99285; G0378; J0610; J2405; J7502; J7515

== ENCOUNTER → 2017-02-24 | Outpatient (CLI) | payer OTHER | LOC: F1NOP 09:31 | PROVIDERS: ATTEND Physician Assistant | PROC: 30243N1 Transfusion of Nonautologous Red Blood Cells into Central Vein, Percutaneous Approach (ICD-10-PCS; principal; 2017-02-24) | DX: D50.8 Other iron deficiency anemias (principal); D62 Acute posthemorrhagic anemia | CPT/HCPCS: P9016 ==

== ENCOUNTER → 2017-04-19 | Outpatient (CLI) | payer OTHER | LOC: FIMAGING 07:15 | PROVIDERS: ATTEND Internal Medicine Nephrology | DX: N17.9 Acute kidney failure, unspecified (principal); R93.422 Abnormal radiologic findings on diagnostic imaging of left kidney; Z94.0 Kidney transplant status ==

== ENCOUNTER 2017-10-07 12:59 | Outpatient (CLI) | payer OTHER ==
[2017-10-07] MEDS ORDERED: diphenhydrAMINE 25 MG CAP PO ONE (14:15)
[2017-10-07] MEDS ORDERED: ACETAMINOPHEN 325 MG TAB PO ONE (14:15)
[2017-10-07 16:05] VITALS: RESP 22; O2SAT 98
[2017-10-07 17:24] VITALS: BP 100/50; PULSE 60; TEMP 97.6
== END 2017-10-07 17:25 | disposition home or self-care (01) ==
LOC: FSGY 12:59 → FOBOP 12:59
PROVIDERS: ATTEND Physician Assistant
PROC: 30233N1 Transfusion of Nonautologous Red Blood Cells into Peripheral Vein, Percutaneous Approach (ICD-10-PCS; principal; 2017-10-07)
DX: N18.9 Chronic kidney disease, unspecified (principal); D63.1 Anemia in chronic kidney disease
CPT/HCPCS: 36430; P9016

== ENCOUNTER 2017-12-08 22:35 | Inpatient (IN) | payer OTHER ==
[2017-12-08] MEDS ORDERED: methylPREDNISolone SOD SUCC 125 MG/2 ML VIAL IVP ONE (22:53)
--- NOTE | 2017-12-08 22:54 | CPEKG ---
Heart Rate: 110 RR Interval: 545 QRSD Interval: 216 QTC Interval: 0 QRS [place]: 103 EKG Severity - ABNORMAL ECG - EKG Impression: AFIB/FLUT AND V-PACED COMPLEXES EKG Impression: RBBB AND LPFB Electronically Signed By: Samara Chávez 08-Dec-2017 22:55:02
[2017-12-08 22:59] LABS: PLATELET COUNT 150 10^3/uL (150-400)
[2017-12-08] MEDS ORDERED: cefTRIAXone 2 GM in STERILE WATER INJ 20 ML IV ONE (23:16)
[2017-12-08] MEDS ORDERED: AZITHROMYCIN IV 500 MG in NS 250 ML IV ONE (23:17)
[2017-12-08] MEDS ORDERED: cefTRIAXone 1 GM/DEXTROSE 1 GM/50 ML BAG IV ONE (23:30)
--- NOTE | 2017-12-08 23:46 | EDPHY ---
H & P Stated Complaint: SOB AND DIFF BREATHING SINCE NOON. Time Seen by Provider: 12/08/17 22:40 HPI/ROS: Chief Complaint: Difficulty breathing HPI: 57-year-old male with a history of COPD, diabetes status post pancreatic and renal transplant, chronic kidney disease. Patient has been having worsening shortness of breath since around noon today. Symptoms got significantly worse and EMS was called. On EMS arrival patient was satting in the mid 70s. They started him on CPAP and gave him a DuoNeb. Patient initially had 1 were dyspnea. They did not give steroids initially. Denies any recent fevers or chills. No nausea or vomiting. No chest pain. History is limited as the patient is on BiPAP. Much of the history is obtained from the patient's . ROS: 10 point Review of Systems is negative except as noted in the HPI. Social History: No smoking, no alcohol, no recreational drug use Family History: non-contributory Physical Exam: Gen: Awake, Alert, significant distress, BiPAP in place HEENT: Nose: no rhinorrhea Eyes: PERRLA, EOMI Mouth: Moist mucosa Neck: Supple, no JVD Chest: nontender, lungs diminished diffusely, mild expiratory wheeze Heart: S1, S2 normal, no murmur Abd: Soft, non-tender, no guarding Back: no CVA tenderness, no midline tenderness Ext: no edema, non-tender Skin: no rash Neuro: CN II-XII intact, Sensation grossly intact, Strength 5/5 in bilateral upper and lower extremities - Personal History Tetanus Vaccine Date: < 10 years - Medical/Surgical History Hx Asthma: No Hx Chronic Respiratory Disease: No Hx Diabetes: Yes Hx Cardiac Disease: Yes Hx Renal Disease: No Hx Cirrhosis: No Hx Alcoholism: No Hx HIV/AIDS: No Hx Splenectomy or Spleen Trauma: No Other PMH: Past medical records obtained from H&P dated 11/04/16 when patient was admitted by Dr. Fry. 1. Type I diabetes. 2. Pancreas transplant. 3. Kidney transplant x2. 4. Chronic kidney disease. 5. Hypertension. 6. Pacemaker. 7. Atrial fibrillation. 8. Gout. 9. Blind. 10. Chronic pain. 11. Peripheral neuropathy. 12. Cholecystectomy - Social History Smoking Status: Never smoked Constitutional: Initial Vital Signs Temperature (C) 37.7 C 12/08/17 22:35 Heart Rate 75 04/06/18 22:35 Respiratory Rate 24 H 12/08/17 22:35 Blood Pressure 104/63 12/08/17 22:35 O2 Sat (%) 100 12/08/17 22:35 O2 Delivery Mode Nasal Cannula O2 (L/minute) 2 Allergies/Adverse Reactions: doxycycline Allergy (Intermediate, Verified 12/08/17 22:47) Other-Enter Comments promethazine HCl [From Phenergan] Allergy (Intermediate, Verified 12/08/17 22:47 ) Other-Enter Comments levofloxacin Allergy (Unknown, Unverified 12/08/17 22:47) Vomiting triazolam Allergy (Unknown, Unverified 12/08/17 22:47) hallucinations IV CONTRAST Allergy (Intermediate, Uncoded 12/08/17 22:47) promethazine HCl Allergy (Unknown, Uncoded 12/08/17 22:47) Other-Enter Comments Home Medications: Medication Instructions Recorded Allopurinol [Allopurinol 100 MG 100 mg PO DAILY 05/02/16 (*)] Cholestyramine (with Sugar) 4 gm PO Q6 PRN 05/02/16 [Cholestyramine Packet] Denosumab [Prolia] 60 mg SQ .TWICE YEARLY 05/02/16 Ezetimibe [Zetia 10 MG (*)] 10 mg PO DAILY 05/02/16 Herbals/Supplements -Info Only 1 ea PO DAILY 05/02/16 Pantoprazole Sodium [Protonix 40mg 40 mg PO DAILY 05/02/16 (*)] amLODIPine BESYLATE [Norvasc 2.5 2.5 mg PO DAILY 05/02/16 mg (*)] lamoTRIgine [Lamictal] 150 mg PO DAILY 05/02/16 lamoTRIgine [LamICTAL 100 MG (*)] 100 mg PO HS #0 tab 05/04/16 Mycophenolate Mofetil [Cellcept] 500 mg PO BID 05/23/16 cycloSPORINE, MODIFIED [Neoral 100 100 mg PO BID 05/23/16 MG (*)] cycloSPORINE, MODIFIED [Neoral 25 25 mg PO BID 05/23/16 MG (*)] [place]-3 Fatty Acids/Fish Oil 1 each PO QID 08/14/16 [[place] 3 Fish Oil Softgel] Sodium Bicarbonate [Na Bicarb] 3,250 mg PO TID 08/14/16 Warfarin Sodium [Coumadin 1MG (*)] 0.5 mg PO MOTUWETHFR@16 08/14/16 predniSONE 5 mg PO DAILY #0 tab 08/15/16 LORazepam [Ativan (*)] 0.5 mg PO DAILY PRN 11/08/16 oxyCODONE IR [Oxycodone Ir (*)] 5 - 10 mg PO Q3 PRN 11/08/16 Calcitriol [Calcitriol (*)] 0.5 mcg PO DAILY #0 cap 11/11/16 Aspirin EC [Aspirin EC 81 mg (*)] 81 mg PO DAILY 11/29/16 OLANZapine [ZyPREXA 2.5 mg (*)] 1.25 mg PO HS 11/29/16 clonazePAM [Klonopin (*)] 0.5 mg PO HS 11/29/16 Ondansetron Odt [Zofran Odt 4 mg 4 mg PO Q4HRS PRN #30 tab 11/30/16 (*)] Medical Decision Making - Diagnostics EKG Interpretation: ECG time 10:48 p.m., atrial fibrillation with ventricular paced complexes. Imaging Results: Imaging Impressions Chest X-Ray 12/08/17 22:53 Impression: 1. Interval development of a lateral right midlung infiltrate. Clinical correlation and follow-up to assure resolution are recommended. 2. Cardiomegaly with mild pulmonary venous hypertension and peribronchial thickening. Imaging: I viewed and interpreted images myself ED Course/Re-evaluation: 57-year-old male presenting with significant respiratory distress. Patient initially had diffuse wheezing per EMS. He is not wheezing now. Does take prednisone daily however he is a renal transplant patient this might be for immunosuppression. I do not have a definite diagnosis COPD in the past. He has received Solu-Medrol 125. Also get a DuoNeb. Patient placed on BiPAP 17/03 here. He states that he is improving. Chest x-ray reveals a large right-sided infiltrate. Blood cultures have been ordered. I have ordered ceftriaxone azithromycin. Patient is significantly improved. He is now on 2 L nasal cannula satting 95%. Blood pressure is 115/38, heart rate 64. I have discussed with Bhavya Loya for Dr. López. She is requesting the patient be admitted to the hospitalist service. I have discussed with Dr. Ace, hospitalist. She will admit to the PCU for further care. - Data Points Laboratory Results: Laboratory Results 12/08/17 22:40 12/08/17 22:40 12/09/17 12/08/17 12/08/17 00:00 22:40 22:40 WBC 6.24 10^3/uL 10^3/uL (3.80-9.50) RBC 2.49 10^6/uL L 10^6/uL (4.40-6.38) Hgb 7.8 g/dL L g/dL (13.7-17.5) Hct 25.0 % L % (40.0-51.0) MCV 100.4 fL H fL (81.5-99.8) MCH 31.3 pg pg (27.9-34.1) MCHC 31.2 g/dL L g/dL (32.4-36.7) RDW 19.0 % H % (11.5-15.2) Plt Count 150 10^3/uL 10^3/uL (150-400) MPV 11.0 fL fL (8.7-11.7) Neut % (Auto) Not Reported Lymph % (Auto) Not Reported [place] % (Auto) Not Reported Eos % (Auto) Not Reported Baso % (Auto) Not Reported Nucleat RBC Rel Count 0.0 % % (0.0-0.2) Absolute Neuts (auto) Not Reported Absolute Lymphs (auto) Not Reported Absolute Monos (auto) Not Reported Absolute Eos (auto) Not Reported Absolute Basos (auto) Not Reported Absolute Nucleated RBC 0.00 10^3/uL 10^3/uL (0-0.01) Immature Gran % Not Reported Seg Neutrophils % 39 % % Band Neutrophils % 47 % % Lymphocytes % 5 % % Monocytes % 6 % % Eosinophils % 1 % % Metamyelocytes % 2 % % Immature Gran # Not Reported Absolute Seg Neuts 2.43 10^/uL 10^/uL (1.70-6.50) Absolute Band Neuts 2.93 10^3/uL H 10^3/uL (0.00-0.70) Absolute Lymphocytes 0.31 10^3/uL L 10^3/uL (1.00-3.00) Absolute Monocytes 0.37 10^3/uL 10^3/uL (0.30-0.80) Absolute Eosinophils 0.06 10^3/uL 10^3/uL (0.03-0.40) Absolute Metamyelocyte 0.12 10^3/mL H 10^3/mL (0.00-0.00) Toxic Granulation PRESENT H Dohle Bodies PRESENT H Platelet Estimate ADEQUATE (ADEQ) Polychromasia 1+ H Hypochromasia 1+ H Microcytic Cells 1+ H Oval Macrocytes 1+ H Echinocytes 1+ H Elliptocytes 1+ H Acanthocytes (Spur) 1+ H Schistocytes 1+ H VBG Lactic Acid 2.4 mmol/L H mmol/L (0.7-2.1) Sodium 137 mEq/L mEq/L (135-145) Potassium 3.2 mEq/L L mEq/L (3.5-5.2) Chloride 111 mEq/L H mEq/L (97-110) Carbon Dioxide 14 mEq/l L mEq/l (22-31) Anion Gap 12 mEq/L mEq/L (8-16) BUN 51 mg/dL H mg/dL (7-23) Creatinine 3.4 mg/dL H mg/dL (0.7-1.3) Estimated GFR 19 Glucose 88 mg/dL mg/dL (70-100) Calcium 5.8 mg/dL L* mg/dL (8.5-10.4) Troponin I 0.061 ng/mL H ng/mL (0.000-0.034) Medications Given: Azithromycin 500 mg/ Sodium (Chloride) 255 mls @ 255 mls/hr IV EDNOW ONE PRN Reason: Protocol Stop: 12/09/17 00:16 Last Admin: 12/08/17 23:55 Dose: 255 mls Discontinued Medications Ceftriaxone Sodium 2 gm/ (Sterile Water) 20 mls @ 300 mls/hr IV EDNOW ONE PRN Reason: Protocol Stop: 12/08/17 23:19 Last Admin: 12/08/17 23:25 Dose: 20 mls Methylprednisolone Sodium Succinate (Solu-Medrol) 125 mg IVP EDNOW ONE Stop: 12/08/17 22:54 Last Admin: 12/08/17 22:39 Dose: 125 mg Departure - Departure Disposition: [facility] In[facility] Acute Clinical Impression: Pneumonia Condition: Fair Referrals: Tani Mcarthur PA [Primary Care Provider] - As per Instructions
--- NOTE | 2017-12-09 00:37 | CPEKG ---
Heart Rate: 63 RR Interval: 952 QRSD Interval: 94 QT Interval: 444 QTC Interval: 455 QRS [place]: -2 T Wave [place]: -79 EKG Severity - ABNORMAL ECG - EKG Impression: ATRIAL FIBRILLATION EKG Impression: REPOL ABNRM SUGGESTS ISCHEMIA, DIFFUSE LEADS Electronically Signed By: Constantino Dewey 09-Dec-2017 02:13:00
[2017-12-09] MEDS ORDERED: ACETAMINOPHEN 325 MG TAB PO PRN (01:34)
[2017-12-09] MEDS ORDERED: ONDANSETRON 4 MG/2 ML VIAL IVP PRN (01:34)
[2017-12-09] MEDS ORDERED: NS 1,000 ML IV SCH (01:45)
[2017-12-09] MEDS ORDERED: POTASSIUM CL 20 MEQ/15 ML UDCUP PO ONE ×2 (01:58→05:20)
[2017-12-09] MEDS ORDERED: CALCIUM GLUCONATE 50 ML IV ONE (01:59)
[2017-12-09] MEDS ORDERED: D50W 25 GM/50 ML SYR IVP PRN (02:00)
[2017-12-09] MEDS ORDERED: BENZONATATE 100 MG CAP PO PRN (02:26)
[2017-12-09] MEDS ORDERED: GUAIFENESIN/DM 10 ML UDCUP PO PRN (02:26)
[2017-12-09] MEDS ORDERED: CALCIUM GLUCONATE 1 GM in D5W 50 ML IV ONE (02:30)
[2017-12-09] MEDS: HYDROmorphONE/DILAUDID 2 MG/ML INJ IVP PRN ×2 (02:46→16:19)
--- NOTE | 2017-12-09 03:35 | GHP ---
[f rep st] HISTORY AND PHYSICAL DATE OF ADMISSION: 12/09/2017 SOURCE: Patient is able to provide history, appears reliable. His is at bedside, supplements some details. EMR was reviewed and case discussed with ED provider. CHIEF COMPLAINT: Shortness of breath and hypoxia. HISTORY OF PRESENT ILLNESS: This is a very pleasant 57-year-old gentleman with multiple medical issues including COPD, non-oxygen dependent; diabetes, type 1; status post pancreatic transplant and renal transplant x2 on chronic immunosuppressive therapy; anxiety; hypertension; hyperlipidemia; chronic pain; peripheral neuropathy; atrial fibrillation with sick sinus syndrome, status post pacer; gout who presents to the emergency department via EMS with complaints of acute exacerbation of shortness of breath. Patient reports increasing cough that is nonproductive as well as worsening shortness of breath in the last 12 hours. Patient felt so significantly ill that he called EMS. He was found to be hypoxic in the mid 70s. He was placed on CPAP and given a DuoNeb with improvement in his symptoms. Patient denies any known sick contacts. He denies any fevers, chills, or sweats. Patient does not wear oxygen at home. He reports some pleuritic right-sided anterior chest pain worse with inspiration and coughing. Patient has noted increasing fatigue. No myalgias. No worsening joint pain. Patient was recently seen by PCP earlier in the week. He completed a 4-day course of doxycycline without significant change in his persistent cough that has been ongoing for a couple of weeks now. REVIEW OF SYSTEMS: GENERAL: No fevers, chills, or sweats. ENT: No significant congestion or sore throat. EYES: No acute changes in vision or ocular pain. Patient is legally blind. CV: Pleuritic chest pain as noted above. No palpitations. RESPIRATORY: Shortness of breath and cough as noted per HPI, nonproductive. GI: No nausea, vomiting, abdominal pain. : No dysuria, hematuria. MUSCULOSKELETAL: No joint pain, myalgias above baseline. NEURO: No headache, numbness, tingling, focal deficits. Patient with chronic peripheral neuropathy. Remainder of review of systems negative except as noted above. ALLERGIES: Doxycycline, Phenergan, levofloxacin, IV contrast, triazolam. PAST MEDICAL HISTORY: Significant for COPD, non-oxygen dependent; diabetes, type 1; status post pancreatic transplant in 1992 with history of renal transplant x2; chronic kidney disease with baseline creatinine 2 to 2.5 previously with patient and reporting that creatinine baseline has slightly increased over the last several weeks to months; benign essential hypertension; atrial fibrillation, status post pacer; history of tophaceous gout ; anxiety; hypertension; hyperlipidemia; blindness; chronic pain; peripheral neuropathy. PAST SURGICAL HISTORY: Significant for a pancreatic transplant, kidney transplant x2, cholecystectomy, dental surgery, pacer placement in 2013, eye surgery, bilateral foot surgery for tophi. FAMILY HISTORY: Significant for father with history of CVA and osteoarthritis, mother with history of cirrhosis, brother with prostate cancer, sister with thyroid issues. SOCIAL HISTORY: Patient is , lives with his . He does not smoke, drink, or do drugs. CODE STATUS: DNR-DNI. Discussed with the patient and his . PHYSICAL EXAMINATION: VITAL SIGNS: Upon arrival to the emergency department: Blood pressure 144/63, heart rate 73, respiratory rate 24, O2 sat 100% on CPAP with temperature 37.7. Vitals currently: Blood pressure 114/32, heart rate 63 , respiratory rate 28, O2 sat 96% on 2 L by nasal cannula, temperature 37.5. GENERAL: No acute distress. Patient is a frail, thin, acutely on chronically ill-appearing gentleman who is sitting up in bed coughing. is at bedside. HEAD: Normocephalic, atraumatic. EYES: Extraocular muscles grossly intact. Pupils equal, round, symmetric. No scleral icterus or conjunctival injection. ENT: Mucous membranes appear dry. No nasal discharge. No apparent oropharyngeal erythema or exudates. Dentition intact. NECK: Supple. Trachea midline. CV: Bradycardic with regular rhythm. No rubs or gallops appreciated. RESPIRATORY: Patient with increased respiratory rate. Significantly diminished at the bases. No wheezes or rhonchi. Poor inspiratory movement diffusely. ABDOMEN: Positive bowel sounds. Soft. Nontender to palpation. No rebound, guarding, or masses appreciated. : No suprapubic tenderness to palpation. No Garcia catheter in place. EXTREMITIES: Patient with 1 to 2+ pitting edema bilaterally lower extremities. Pedal pulses limited palpation secondary to edema. Patient with significantly generalized deconditioning and weakness. He is able to move all his extremities with 3/5 to 4/5 strength in his upper and lower extremities. NEURO: Grossly nonfocal. No facial drooping. Cranial nerves intact. PSYCH: Patient is not agitated. Affect is slightly flat. Patient does appear ill, but he is cooperative and pleasant. Thought process, content, and questions are otherwise appropriate. DATA REVIEWED: Lactic acid 2.4. Sodium 137, potassium 3.2, chloride 111, CO2 14, anion gap 12, BUN 51, creatinine 3.4, GFR 19, glucose 88, calcium 5.8. Troponin 0.061. EKG reviewed myself showing AFib-flutter with V-paced complexes, right bundle branch block, and left posterior fascicular block. The rate is in the 60s. Chest x-ray, image report reviewed myself: Right middle lobe infiltrate. Cardiomegaly with pulmonary venous hypertension. Peribronchiolar thickening. Pacer in place. Dental implants noted. Repeat EKG showing the rate in the 60s with atrial fibrillation, T wave inversions in the inferolateral leads, no acute ST elevations, QTc 455. ASSESSMENT AND PLAN: Pleasant 57-year-old gentleman with multiple chronic medical problems including chronic obstructive pulmonary disease, history of multiorgan transplant on chronic immunosuppressive therapy, hypertension, anxiety, chronic pain, atrial fibrillation, status post pacer who presents to the emergency department today with acute and severe shortness of breath. 1. Acute hypoxic respiratory failure with saturations initially in the 70s, requiring transitional CPAP. Patient has received steroids, nebulizer treatments, and antibiotics with azithromycin and Rocephin in the emergency department. His respiratory status has significantly improved, and he has been transitioned to nasal cannula. 2. Chronic obstructive pulmonary disease with exacerbation, status post Solu- Medrol 125 mg. We will plan to continue scheduled and p.r.n. nebulizer treatments. Will add Pulmicort. Antibiotic therapy. Will be escalated from azithromycin and Rocephin to Zosyn given patient's chronically immunocompromised status. Blood cultures x2 are pending. 3. Severe sepsis. Patient qualifies with tachypnea and elevated lactate. Mentation is adequate. Patient has remained afebrile. Cultures are pending. Antibiotic coverage as noted above. 4. Lactic acidosis. IV fluids will be given for gentle hydration. Patient did receive a liter in the emergency department. Monitor closely for fluid balance. 5. Hypokalemia. Replacement will be ordered. 6. Hrlnl-vm-bqrlnvb kidney disease, stage 4. Creatinine does appear to be above baseline at this time. He will receive some gentle IV fluid hydration as noted above. We will plan to repeat in the morning. This is likely prerenal secondary to dehydration as patient does appear dry in the setting of sepsis. 7. Hypoglycemia. Patient will be receiving replacement orally. 8. Hypocalcemia. We will plan to check ionized calcium. In the interim, patient will be given replacement IV. Plan to resume patient's calcitriol and other home medications once med rec is available per pharmacy review. 9. Elevated troponin, indeterminate range. Patient without any acute chest pain. This is likely demand in setting of significant hypoxia and acute respiratory failure. Patient with some ST depressions on EKG, but this is likely related to patient's hypoxia. He will be monitored on telemetry continuously. OTHER CHRONIC MEDICAL ISSUES: 1. Benign essential hypertension. At this time, blood pressures are acceptable. Once available, will plan to review patient's home med rec. 2. Anxiety and mood disorder. Plan to continue patient's mood stabilizers and psychiatric medications once med rec is available. 3. Chronic pain. Patient is noting also some acute pleuritic-type chest pain. He has requested his oxycodone. Will be cautious with use in setting of acute -on-chronic kidney disease secondary to decreased clearance and increased risk for confusion. Low-dose Dilaudid will be available secondary to its shortened half-life in comparison. 4. Atrial fibrillation, status post pacer placement. Monitor on telemetry closely. 5. Gout. Patient will require likely some adjustment dosing to his allopurinol and the remainder of his home medications. 6. History of transplant. Will plan to resume patient's immunosuppressive therapy once he is stabilized. 7. Hkloaw-btltqoqixecj-mbmtqkiqk. Patient will be given IV fluids for some gentle IV fluid hydration as he does appear to be a little dry. Electrolytes will be monitored and replaced as noted above. Diet has been ordered as tolerated. Nutrition consult in addition. 8. Prophylaxis. SCDs only. Holding anticoagulation secondary to patient's anemia and recent requirement for transfusion. 9. Code status. DNR-DNI. DISPOSITION: Patient has been admitted to inpatient status on SDU for close respiratory and cardiac monitoring at this time. Patient is acutely ill, and anticipate greater than 2-midnight stay. Patient's primary care provider was notified on from the emergency department regarding patient's admission. Hospitalist service requested to perform inpatient admission service. Care will subsequently be turned back over to PCP at 0700. Level 3 inpatient admission service. /[id number]/MODL MTDD
[2017-12-09] MEDS ORDERED: FUROSEMIDE 40 MG/4 ML VIAL IVP ONE (04:14)
[2017-12-09 04:28] LABS: PLATELET COUNT 155 10^3/uL (150-400)
[2017-12-09 04:38] LABS: INR 1.89 (0.83-1.16); PROTIME(PATIENT) 21.8 SEC (12.0-15.0)
[2017-12-09] MEDS: ALBUTEROL 3 ML DEYVIAL IH PRN (04:50)
[2017-12-09] MEDS: PIPERACILLIN/TAZO 3.375 GM/DEX 50 ML IV SCH ×2 (05:09→18:30)
--- NOTE | 2017-12-09 05:10 | PDMN ---
Medical Necessity Medical necessity: C/M review: est. > 2 MN LOS for eval and TX of acute hypoxic respiratory failure, chronic COPD with exacerbation, severe sepsis, lactic acidosis, multiple electrolyte imbalances requiring ongoing IV Zosyn, IN steroids, IV fluids, nebulizer treatments, cardiac monitoring, pulse oximetry , supplemental O2 (CPAP initially), comorbid benign essential hypertension, anxiety and mood disorder, chronic pain, atrial fibrillation S/P pacemaker placement, gout, history of renal transplant x 2, pancreatic transplant, type 1 diabetes, COPD non O2 dependent, blindness, peripheral neuropathy per H/P.
[2017-12-09] MEDS ORDERED: CALCIUM GLUCONATE 2 GM in D5W 50 ML IV ONE ×4 (05:19→23:30)
[2017-12-09] MEDS ORDERED: MAGNESIUM SULF 2 GM/WATER 50 ML IV ONE (05:19)
[2017-12-09] MEDS ORDERED: LORazepam 0.5 MG TAB PO PRN (05:22)
[2017-12-09] MEDS: IPRATROPIUM/ALBUTEROL 3 ML DEYVIAL IH SCH ×4 (06:04→20:14)
--- NOTE | 2017-12-09 08:42 | SOAPPROG ---
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 give stress dose steroids given sepsis (I wrote for hydrocortisone 100mg q8 IV). May need to hold gengraf if Cr worsens -no acute HD needs currently but remains at risk for need- discussed with #metabolic acidosis -has chronic met acidosis likely CKD related, on po bicarb -elevated lactate now, likely sepsis related -checking blood gas now- giving iv bicarb gtt -treating underlying sepsis, IVF (bicarb), continue to follow lab trend #sepsis- RUL consolidation on CXR -immunocompromised given transplant status -cultures pending, on broad spectrum antibiotics -viral resp panel neg -stress dose steroids given immunosuppression #acute hypoxic resp failure- suspect infectious -viral resp panel neg, blood cx pending -mild elevation in troponin -underlying COPD #hypoCA and hypoMg -replacing now- immunosupp can cause low Mg -follow lytes q6 hours carmen while on bicarb gtt #anemia CKD/acute illness -would avoid IV iron given acute infection -will start Epo- discuss with -transfuse if Hb <7 -- please use leukopoor blood as transplant #afib #s/p pacemaker #gout #COPD #overall poor prognosis - aware of severity, he is DNR/DNI. Continue discussions for goals of care as we see how he responds to initial treatment I discussed with crit care MD and RN, , hospitalist, pharmacist Eli Dasilva MD [facility] pager [phone] 12/09/17 09:30 Subjective: 57 M with h/o renal/pancreas transplant in 1991 then subsequent renal transplant in 2001 ([facility]), COPD, A fib, s/p pacer, gout, HTN now presents with acute hypoxic resp failure, cough, sepsis. Developed cough over past 2 days- no hemoptysis or fevers. Some generalized malaise. Acutely SOB last night and EMS called. Arrived with O2 sats in 70s, initially on BIPAP, steroids, IV antibiotics. Viral resp panel neg. CXR with RUL consolidation. Cr has slowly been worsening- tells me he has been in low 3 range (sees Dr. Givens/ Tabby of my group). On gengraf, pred, mycophenolate. Has not missed any meds. No n/v. Has chronic diarrhea- about 2-3 episodes a day, non bloody. Denies abd pain. Was on doxycycline about 2 weeks ago for UTI per . Good UOP overnight , denies dysuria. He is tachypneic and moaning but able to answer basic questions. Has not required pressors, BP running ~ 120s currently. Objective: Vital Signs Temp Pulse Resp BP Pulse Ox 37.1 C 66 26 H 115/33 L 95 12/09/17 04:00 12/09/17 06:04 12/09/17 06:04 12/09/17 04:00 12/09/17 06:04 Microbiology 12/09/17 02:50 Respiratory Panel (PCR) - Final Nasal, Sinus - Swab No Organism Detected Laboratory Results 12/09/17 04:00 12/09/17 04:00 12/08/17 12/09/17 12/10/17 05:59 05:59 05:59 Intake Total 482 Output Total 600 Balance -118 PT 21.8 SEC (12.0-15.0) H 12/09/17 04:00 INR 1.89 (0.83-1.16) H 12/09/17 04:00 Physical Exam - Physical Exam General Appearance: alert, other (ill appearing, tachypneic, moaning, frail chronically ill) EENT: other (dry MMM, crusted eyes) Neck: supple Respiratory: other (coarse rales bilat) Cardiac/Chest: regular rate, rhythm Abdomen: other (distended, not tender, +umbilical hernia reducible) Extremities: other (no edema) Neuro/Psych: alert, other (follows commands, answers basic questions) ICD10 Worksheet Patient Problems: Problems Problem Status Onset Pneumonia Acute Abdominal pain Acute Anemia Acute Diarrhea Acute Diarrhea Acute Elevated troponin Acute Heart block AV second degree Acute Hypocalcemia Acute Hyponatremia Acute Pacemaker Acute Subtherapeutic international normalized ratio (INR) Acute Urinary tract infection Acute Vomiting Acute
[2017-12-09] MEDS ORDERED: BUDESONIDE 0.5 MG/2 ML AMPUL.NEB IH SCH (09:00)
[2017-12-09] MEDS: HYDROCORTISONE 100 MG/2 ML VIAL IVP SCH ×3 (09:35→21:10)
[2017-12-09] MEDS: SODIUM BICARBONATE 150 MEQ in D5W 1,000 ML IV SCH ×2 (09:40→19:59)
[2017-12-09] MEDS: methylPREDNISolone SOD SUCC 125 MG/2 ML VIAL IVP SCH ×2 (09:53→09:54)
[2017-12-09] MEDS ORDERED: CHOLESTYRAMINE/SUCROSE 4 GM PKT PO PRN (10:11)
[2017-12-09] MEDS ORDERED: FERROUS GLUCONATE 324 MG PO SCH (10:15)
[2017-12-09] MEDS ORDERED: NON-FORMULARY NEW DRUG (Mycophenolate Mofetil [Cellcept] 500 MG) PO SCH (10:15)
[2017-12-09] MEDS ORDERED: NON-FORMULARY NEW DRUG (Lamotrigine [Lamictal] 200 MG) PO SCH (10:15)
--- NOTE | 2017-12-09 10:17 | SOAPPROG ---
SOAP Progress Note Assessment/Plan: Assessment: 57 yo male with multiple chronic issues including diabetes mellitus treated with pancreatic transplant, s/p two kidney transplants and with CKD stage 4, chronic anemia, failure to thrive. Admitted last night for severe respiratory distress found to have right middle lobe pneumonia as demonstrated by cxr, sepsis, metabolic acidosis, respiratory distress and hypomagnesemia, hypokalemia. Currently being followed by field installer as well as nephrology ( greatly appreciate assistance). Plan: CKD: followed by nephrology who does not feel at this time appropriate for dialysis, will continue to medically manage and monitor. currently making urine , though oliguric. creatinine has been trending upward over the past few months , as well as increasing amt of electrolyte imbalances. will continue to monitor. RML Pneumonia: Currently on zosyn for broad spectrum coverage. Respiratory panel negative. Sepsis: Blood cultures pending, resp panel negative. As noted above on zosyn for abx coverage. Stress dose of steroids Metabolic acidosis: Plan to place arterial line for monitoring of blood gases and accurate monitoring of blood pressures. Currently on bicarb gtt. Respiratory distress: Currently on 2LO2 via nasal cannula. PRN morphine for air hunger and distress. Anxiety: Pt has pretty severe anxiety at baseline which tends to be exacerbated while inpatient. PRN Ativan. Hypomagnesemia: Replacement as needed, serial BMPs to monitor Hypokalemia: Replacement as needed, serial BMPs to monitor Atrial fibrillation: Currently rate controlled and without ectopy, on tele Anemia: chronic with CKD, will follow hgb. Vitals stable. Plan to transfuse if hgb <7. COPD Dispo: to remain in ICU for close monitoring 12/09/17 10:25 12/09/17 10:28 Subjective: Pleasant 57 yo male resting in bed. Currently working to breathe with visible dyspnea. Per , dilaudid and ativan have helped with anxiety and air hunger , which definitely exacerbated the dyspnea. Denies pain at this time. Most of conversation was held with , as patient is quite weak and not as participatory in conversation due to fatigue and dyspnea Objective: Vital Signs Temp Pulse Resp BP Pulse Ox 37.0 C 71 21 H 114/32 L 99 12/09/17 09:05 12/09/17 09:05 12/09/17 09:05 12/09/17 08:00 12/09/17 09:05 Microbiology 12/09/17 02:50 Respiratory Panel (PCR) - Final Nasal, Sinus - Swab No Organism Detected Laboratory Results 12/09/17 04:00 12/09/17 04:00 12/08/17 12/09/17 12/10/17 05:59 05:59 05:59 Intake Total 482 Output Total 600 Balance -118 PT 21.8 SEC (12.0-15.0) H 12/09/17 04:00 INR 1.89 (0.83-1.16) H 12/09/17 04:00 Gen- AAO, chronically ill appearing and visibly with effort to breathe Head- normocephalic, atraumatic Resp- coarse rales heard throughout lung subramanian, as noted above- working hard to breathe currently though vitals stable CV- rate controlled, no murmurs, rubs, gallops Abd- SNT, + bowel sounds Extremities- no peripheral edema at this time Skin- warm and dry ICD10 Worksheet Patient Problems: Problems Problem Status Onset Pneumonia Acute Abdominal pain Acute Anemia Acute Diarrhea Acute Diarrhea Acute Elevated troponin Acute Heart block AV second degree Acute Hypocalcemia Acute Hyponatremia Acute Pacemaker Acute Subtherapeutic international normalized ratio (INR) Acute Urinary tract infection Acute Vomiting Acute
[2017-12-09] MEDS ORDERED: SODIUM BICARBONATE 50 MEQ/50 ML SYR IVP ONE (10:38)
[2017-12-09] MEDS ORDERED: ALTEPLASE 2 MG VIAL IVP PRN (10:42)
[2017-12-09] MEDS: LORazepam 2 MG/ML INJ IVP PRN ×3 (11:29→21:43)
[2017-12-09] MEDS: CYCLOSPORINE, MODIFIED 25 MG CAP (NEORAL) PO SCH ×2 (11:31→21:09)
[2017-12-09] MEDS: CYCLOSPORINE MODIFIED 100 MG PO SCH ×2 (11:31→21:08)
[2017-12-09] MEDS: oxyCODONE IR 5 MG TAB PO PRN (11:32)
[2017-12-09] MEDS: ASPIRIN EC 81 MG TAB PO SCH (11:33)
[2017-12-09] MEDS: EZETIMIBE 10 MG TAB PO SCH (11:33)
[2017-12-09] MEDS: PIPERACILLIN/TAZO 2.25 GM/DEX 50 ML IV SCH ×2 (12:18→18:30)
[2017-12-09] MEDS ORDERED: MAGNESIUM SULF 1 GM/DEXTROSE 100 ML IV ONE ×2 (12:30→23:30)
[2017-12-09] MEDS ORDERED: VANCOMYCIN HCL/NORMAL SALINE 250 ML IV ONE (13:21)
[2017-12-09] MEDS ORDERED: HYDROCORTISONE 100 MG/2 ML VIAL IVP SCH (14:00)
--- NOTE | 2017-12-09 14:12 | GCON ---
[f rep st] CONSULTATION PULMONARY CRITICAL CARE CONSULTATION REASON FOR CONSULTATION: Pneumonia, sepsis in the setting of previous organ transplantation. HISTORY: The patient is a 57-year-old who was admitted with pneumonia and sepsis. He has a history of type 1 diabetes since childhood. He received a pancreatic transplant and his first renal transpla nt 25 years ago. He had a second renal transplant. He is on chronic immunosuppressive therapy and h as been followed by Dr. Mcnair of nephrology for many years. He has had pneumonia a couple of times in the past, but never sepsis according to his . Over the last day, he has had increasing cough and shortness of breath. The cough has been rattly but nonproductive. He is chronically fatigued se condary to his multiple medical problems; however, he felt more fatigued and quite ill yesterday. He was brought to the emergency department by EMS. Saturations were in the mid 70s. Chest x-ray showe d a right upper lobe infiltrate. This was associated with pleuritic type chest pain on the right. Alma medina recently had been on doxycycline. PAST MEDICAL HISTORY: In addition to his diabetes and transplants, there is a history of systemic hy pertension, hyperlipidemia, peripheral neuropathy, chronic atrial fibrillation and sick sinus syndrom e with a pacemaker, and chronic pain. He is anemic, on iron, and has a history of depression. Creat inine is chronically elevated at approximately 2. He is legally blind. PAST SURGICAL HISTORY: Pancreatic and renal transplantations, the latter x2, cholecystectomy, pacema ker, eye surgery, and foot surgery for gouty tophi. FAMILY HISTORY: Noncontributory. Negative for diabetes. SOCIAL HISTORY: The patient is , lives with a very supportive . He is a never smoker. A lcohol is negative. He is disabled. He is do not resuscitate/do not intubate secondary to his wishe s. REVIEW OF SYSTEMS: Unobtainable from the patient at this time. PHYSICAL EXAMINATION: GENERAL: A thin gentleman who looks significantly older than his stated age. He is quite somnolent, arousing only weakly. He will moan or try to mutter responses to questions. VITAL SIGNS: Current blood pressure is 122/73, heart rate 60, alternating between paced beats and a trial fib/flutter. On 2 L, saturations are 99%. Respiratory rate is 18. He is afebrile and has bee n so since admission. HEENT: Unremarkable for lymphadenopathy or thyromegaly. There is no apparent jugular venous distention. Mucous membranes are dry. PULMONARY: The chest reveals decreased breat h sounds bilaterally. Rales are present on the right over the upper lung field. No distinct rub is currently present that I can appreciate. HEART: Somewhat irregular. There is a systolic murmur, no obvious gallop. P2 does not appear to be increased. ABDOMEN: Protuberant and distended. There is no obvious tenderness to palpation. There are no masses. I did not try to palpate his renal transp lant. : A Garcia catheter is in place with some urine output. SKIN: Pale. There are no lesions or rash. EXTREMITIES: There is trace peripheral edema. NEUROLOGIC: Remarkable for global weakness and relative obtundation. He arouses only weakly. DATABASE: Chest x-ray shows a right upper lobe infiltrate which has progressed compared to 8 hours p reviously. Blood cultures are pending. A respiratory panel did not identify any organisms. White blood cell count is 6900, hematocrit is 24, platelets 155,000. There is a significant shift to the left with 60% bands. INR is 1.89 with a PTT of 28.8. Arterial blood gas from this morning show ed a pH of 7.14, pCO2 of 23, and pO2 of 39 with a bicarbonate of 8. This may have been venous? Lact ate was 3.8. Sodium is 140, potassium 4.7, CO2 is 11, anion gap 16, BUN 43 with a creatinine of 3.3. Glucose is 130, calcium 6.6 with an ionized calcium of 0.98. Magnesium is 1.6. Troponin 0.129. B [employer] is elevated at 24,000. ASSESSMENT: 1. Pneumonia. This is associated with sepsis/SIRS. Chest x-ray has progressed since admission. He is on broad-spectrum antibiotics with Zosyn currently. He received ceftriaxone and azithromycin in the emergency department. Vancomycin was not given. He is on albuterol. He does have central rhonc hi, but is unable to bring up any sputum. A nasotracheal suction specimen will be ordered. He is do not intubate if he progresses to respiratory failure. This was discussed with the patient's . 2. Sepsis/SIRS. He is significantly ill, although is not hypotensive. He is not requiring pressor therapy. Blood cultures are pending. He is on stress steroid coverage as he has been on chronic katie roid therapy as part of his immunosuppression. He is receiving IV fluids and appears to be at least euvolemic. A PICC line has been requested. CVP monitoring will be indicated to better determine vol ume status. 3. Immunosuppression secondary to transplantation. 4. Status post pancreatic and renal transplantation, the latter x2. 5. Type 1 diabetes. He is status post pancreatic transplantation and does not require insulin or or al agents. 6. History of other medical problems as outlined above. His usual outpatient medications have been ordered. However, his somnolence makes him at some risk for aspiration. PLAN AND RECOMMENDATIONS: The patient will be kept in the intensive care unit. Zosyn will be contin ued. One dose of vancomycin will be given pending cultures. A nasotracheal suction sputum culture w ill be requested. An arterial line will be placed. Chest x-ray and laboratory will be followed. Be dside swallow evaluation will be requested. If swallow is felt to be unsafe, then an NG tube could b e considered. Stress steroid coverage will be continued. Albuterol will be continued. Immunosuppre ssive therapies will be continued per his outpatient regimens. Subcu heparin will be given for DVT p rophylaxis and famotidine adjusted for renal failure for GI prophylaxis in light of his high-dose katie roids. His prognosis is somewhat guarded at this point secondary to the severity of his pneumonia and its sy stemic effect/SIRS. He is do not intubate/do not resuscitate per his wishes. Further plans and recommendations will be made based on his progress over the next 12-24 hours. Over 1 hour critical care time was spent directly with the patient. Discussed with Nursing, Respirat ory, Nephrology, and the ICU multidisciplinary team. /[id number]/MODL
[2017-12-09] MEDS: HEPARIN 5,000 UNIT/0.5 ML SYR SC SCH ×2 (15:22→21:10)
--- NOTE | 2017-12-09 15:56 | ASMTCMCOM ---
CM Note CM Note Notes: Pt admitted for shortness of breath and hypoxia. Diagnosed with Pneumonia. Per ICU rounds, pt has an extensive medical history including COPD, DM, anxiety and multiple transplants (pancreas and kidneys). Pt is , his 's name is Lida. Discharge needs remain unclear at this time. CM will continue to follow. Current Discharge Plan: To be determined Date Signed: 12/09/2017 03:55 PM Electronically Signed By:Oralia Del Rosario RN
[2017-12-09] MEDS ORDERED: LIDOCAINE 1% 300 MG/30 ML SDV ONE (16:50)
[2017-12-09] MEDS ORDERED: (Ferrous Gluconate [Ferrous Gluconate] 324 MG) PO SCH (21:00)
[2017-12-09] MEDS: OLANZapine 2.5 MG TAB PO SCH (21:09)
[2017-12-09] MEDS: lamoTRIgine 100 MG TAB PO SCH (21:09)
[2017-12-09] MEDS: MYCOPHENOLATE MOFETIL 250 MG CAP PO SCH (21:09)
[2017-12-09] MEDS ORDERED: NS 1,000 ML IV ONE (22:55)
[2017-12-10] MEDS: PIPERACILLIN/TAZO 2.25 GM/DEX 50 ML IV SCH ×5 (00:01→23:10)
[2017-12-10] MEDS: ALBUTEROL 3 ML DEYVIAL IH PRN (01:26)
[2017-12-10] MEDS: IPRATROPIUM/ALBUTEROL 3 ML DEYVIAL IH SCH ×4 (05:30→19:36)
[2017-12-10] MEDS: HEPARIN 5,000 UNIT/0.5 ML SYR SC SCH ×3 (05:57→22:26)
[2017-12-10] MEDS: HYDROCORTISONE 100 MG/2 ML VIAL IVP SCH ×3 (05:57→22:26)
[2017-12-10 06:10] LABS: PLATELET COUNT 134 10^3/uL (150-400)
[2017-12-10] MEDS: CYCLOSPORINE MODIFIED 100 MG PO SCH ×2 (08:25→23:41)
[2017-12-10] MEDS: EZETIMIBE 10 MG TAB PO SCH (08:25)
[2017-12-10] MEDS: CYCLOSPORINE, MODIFIED 25 MG CAP (NEORAL) PO SCH ×2 (08:25→23:41)
[2017-12-10] MEDS: ASPIRIN EC 81 MG TAB PO SCH (08:25)
[2017-12-10] MEDS: MYCOPHENOLATE MOFETIL 250 MG CAP PO SCH ×2 (08:25→23:42)
[2017-12-10] MEDS: FERROUS SULFATE 325 MG TAB PO SCH ×2 (08:26→17:37)
[2017-12-10] MEDS ORDERED: amLODIPine BESYLATE 5 MG TAB PO SCH (09:00)
[2017-12-10] MEDS ORDERED: FAMOTIDINE 20 MG/NACL 50 ML IV SCH (09:00)
[2017-12-10] MEDS ORDERED: lamoTRIgine 100 MG TAB PO SCH (09:00)
[2017-12-10] MEDS: LORazepam 2 MG/ML INJ IVP PRN ×4 (09:19→16:10)
[2017-12-10] MEDS: oxyCODONE IR 5 MG TAB PO PRN (10:26)
[2017-12-10] MEDS: SODIUM BICARBONATE 150 MEQ in D5W 1,000 ML IV SCH (10:26)
[2017-12-10] MEDS ORDERED: LIDOCAINE 1% 300 MG/30 ML SDV MISC ONE (11:03)
[2017-12-10] MEDS ORDERED: LIDOCAINE 2% JELLY 5 ML TUBE TP ONE (11:03)
[2017-12-10] MEDS ORDERED: LACTULOSE 20 GM/30 ML UDCUP PO PRN (11:20)
[2017-12-10] MEDS ORDERED: POLYETHYLENE GLYCOL 3350 17 GM PKT PO PRN (11:20)
[2017-12-10] MEDS ORDERED: BISACODYL 10 MG SUPP PR PRN (11:20)
[2017-12-10] MEDS ORDERED: MAGNESIUM HYDROXIDE 30 ML UDCUP PO PRN (11:20)
[2017-12-10] MEDS: SENNOSIDES/DOCUSATE SODIUM TAB PO SCH ×2 (12:07→23:42)
--- NOTE | 2017-12-10 12:59 | SOAPPROG ---
SOAP Progress Note Assessment/Plan: Assessment: 57 yo male with multiple chronic issues including diabetes mellitus treated with pancreatic transplant, s/p two kidney transplants and with CKD stage 4, chronic anemia, failure to thrive. Admitted last night for severe respiratory distress found to have right middle lobe pneumonia as demonstrated by cxr, sepsis, metabolic acidosis, respiratory distress and hypomagnesemia, hypokalemia. Currently being followed by computer aided drafter as well as nephrology ( greatly appreciate assistance). Plan: CKD: electrolytes replaced as needed by nephrology, making great urine over night, still about 2L up this morning and does appear to be holding onto the fluid in his abd-distended and without peripheral edema. RML Pneumonia: Had one dose of vanco yesterday and continue zosyn until cultures return. Sputum specimen sent yesterday. Considering therapeutic bronchoscopy, however patient would like to wait and discuss with Tani, his PCP , tomorrow morning prior to moving forward with this. Danny and his Lida have re-confirmed that they absolutely do not want to consider intubation, even acutely. Sepsis: Blood cultures pending, resp panel negative, sputum cultures pending. As noted above on zosyn for abx coverage. Stress dosing of steroids as he is on steroids for immunosuppression. Metabolic acidosis: ABG much improved, will continue to monitor. May need to consider BiPAP as needed during his course if he starts failing again. Respiratory distress: Currently on 2LO2 via nasal cannula and sating well. Danny does not feel like he is working hard to breathe this AM and does not appear to be in distress. PRN morphine for air hunger and distress. Anxiety: Pt has pretty severe anxiety at baseline which tends to be exacerbated while inpatient. PRN Ativan. Hypomagnesemia: Replacement as needed, serial BMPs to monitor Hypokalemia: Replacement as needed, serial BMPs to monitor Atrial fibrillation: Currently paced, rate controlled and without ectopy on tele Anemia: currently receiving 1u RBC per Dr. Lemon, will follow hgb Constipation: bowel regimen ordered. 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 S/p renal transplant x2: on immunosuppressants, stress dose of steroids as noted above S/p pancreatic transplant: above Diabetes type 1: s/p pancreatic transplant, no need for blood glucose monitoring at this time COPD DVT prophylaxis: sc heparin Dispo: to remain in ICU for close monitoring 12/10/17 12:50 Subjective: Danny is resting in bed. Says he feels tired, but better than he did yesterday. He is more participatory in our conversation and decision making today than he was yesterday. He does not feel like he is working overly hard to breathe, and he is comfortable at this time. Objective: Vital Signs Temp Pulse Resp BP Pulse Ox 37.0 C 74 20 106/52 L 99 12/10/17 11:46 12/10/17 11:46 12/10/17 11:46 12/10/17 11:46 12/10/17 11:46 Microbiology 12/09/17 15:17 - Final Sputum, Induced/Suctioned 12/09/17 02:50 Respiratory Panel (PCR) - Final Nasal, Sinus - Swab No Organism Detected Laboratory Results 12/10/17 06:00 12/10/17 11:30 12/09/17 12/10/17 12/11/17 05:59 05:59 05:59 Intake Total 482 3884 Output Total 600 1250 Balance -118 2634 PT 21.8 SEC (12.0-15.0) H 12/09/17 04:00 INR 1.89 (0.83-1.16) H 12/09/17 04:00 Gen- alert, oriented, vitals stable, chronically ill appearing, not currently in visible distress Head- normocephalic, atraumatic Resp- diffuse rhonchi throughout, stable on 2L nasal cannula at this time CV- paced, aflutter, rate controlled, no murmurs, rubs, gallops to auscultation Abd- distended and firm, hypoactive bowel sounds, does endorse some abd discomfort Extremities- no peripheral edema Skin- warm and dry ICD10 Worksheet Patient Problems: Problems Problem Status Onset Pneumonia Acute Abdominal pain Acute Anemia Acute Diarrhea Acute Diarrhea Acute Elevated troponin Acute Heart block AV second degree Acute Hypocalcemia Acute Hyponatremia Acute Pacemaker Acute Subtherapeutic international normalized ratio (INR) Acute Urinary tract infection Acute Vomiting Acute
--- NOTE | 2017-12-10 13:21 | PDINTPN ---
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 Associated with persistent rhonchi. Cultures negative so far. He does appear to be responding to antibiotics. Despite infiltrate and pulmonary congestion oxygen requirements remain low. Arterial blood gas is improved. Bronchoscopy is being considered to remove secretions however they would like to wait until they have a chance to talk to Tani Blue tomorrow. Respiratory panel negative. Sputum growing mixed oral brielle only. On Zosyn, vancomycin. Can stop the latter after tomorrow if no evidence of MRSA. Acute respiratory failure: Improving. Arterial blood gas significantly better today on 2 L. Previous values likely were venous or partially venous. Sepsis: Has not required pressors. On stress steroids, intravenous fluids with a CVP of 12. DNR/DNI: This was discussed with the patient and his . Even if he were to progress to respiratory failure they would not want him intubated. Immunosuppression: Secondary to pancreatic and renal transplants. Stable. Renal insufficiency: BUN in the 50s, creatinine 3.2. Stable. Renal transplant is known to be slowly failing. He does not want another. Renal following. Anemia: Secondary to renal failure and chronic disease. Will give 1 unit of packed red cells today for his hematocrit of 21. Hypertension: Blood pressure is borderline low secondary to sepsis. Remains on low-dose amlodipine. DVT prophylaxis: Subcu heparin. GI prophylaxis: Famotidine adjusted for renal failure Plan: Continue present aggressive supportive care. Continue antibiotics, bronchopulmonary therapies. Nasotracheal suctioning p.r.n. As needed. Readdress therapeutic bronchoscopy tomorrow after Tani Mcarthur has seen the patient. Continue DNR/DNI status. Continue other medications. For 1 unit of packed red cells today. Follow laboratory, chest x-ray, blood gas as needed. 45 min of critical care time spent directly with the patient today. Discussed with the patient's, primary care team, respiratory, nursing, and the ICU multi disciplinary team. Subjective: More alert today, responsive. Persistent secretions/rhonchi. Objective: Vital Signs Temp Pulse Resp BP Pulse Ox 37.0 C 74 20 106/52 L 99 12/10/17 11:46 12/10/17 11:46 12/10/17 11:46 12/10/17 11:46 12/10/17 11:46 Microbiology 12/09/17 15:17 - Final Sputum, Induced/Suctioned 12/09/17 02:50 Respiratory Panel (PCR) - Final Nasal, Sinus - Swab No Organism Detected Laboratory Results 12/10/17 06:00 12/10/17 11:30 12/09/17 12/10/17 12/11/17 05:59 05:59 05:59 Intake Total 482 3884 Output Total 600 1250 Balance -118 2634 PT 21.8 SEC (12.0-15.0) H 12/09/17 04:00 INR 1.89 (0.83-1.16) H 12/09/17 04:00 Laboratory Tests 12/10/17 12/10/17 12/10/17 05:40 11:30 11:30 pCO2 27 L pO2 73 Total CO2 18 L ABG pH 7.43 Total O2 Concentration 1.0 Calcium 6.6 L Ionized Calcium 0.97 L Magnesium 12/10/17 11:30 pCO2 pO2 Total CO2 ABG pH Total O2 Concentration Calcium Ionized Calcium Magnesium 1.9 CXR: Infiltrates about the same. Slightly larger regarding right upper lobe but less dense. Physical Exam - Physical Exam General Appearance: mild distress (Secondary to secretions/rhonchi), thin, other (Somnolent, arouses) EENT: other (Nasal cannula oxygen in place at 1-2 L), No PERRL/EOMI (Blind), No scleral icterus (R), No scleral icterus (L) Neck: normal inspection (No obvious JVD) Respiratory: decreased breath sounds, rales (Rales right upper chest, left lower chest), rhonchi (Rhonchi present bilaterally), No wheezing Cardiac/Chest: other (Irregular, paced alternating with atrial fib/flutter) Abdomen: distended, No normal bowel sounds (Decreased, present), No non-tender, No soft Male Genitalia: other (Catheter in place. Input greater than output by approximately 3 L since admission.) Skin: warm/dry, pallor Extremities: pedal edema (Trace +) Neuro/Psych: no motor/sensory deficits (Globally weak), No cognition abnormalities ICD10 Worksheet Patient Problems: Problems Problem Status Onset Heart block AV second degree Acute Elevated troponin Acute Pacemaker Acute Urinary tract infection Acute Hyponatremia Acute Hypocalcemia Acute Subtherapeutic international normalized ratio (INR) Acute Anemia Acute Diarrhea Acute Vomiting Acute Diarrhea Acute Abdominal pain Acute Pneumonia Acute
[2017-12-10] MEDS ORDERED: POTASSIUM CL 20 MEQ TAB PO ONE (13:30)
[2017-12-10] MEDS ORDERED: CALCIUM GLUCONATE 2 GM in D5W 50 ML IV ONE ×2 (13:30→18:00)
--- NOTE | 2017-12-10 14:44 | SOAPPROG ---
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 giving stress dose steroids given sepsis (I wrote for hydrocortisone 100mg q8 IV). May need to hold gengraf if Cr worsens (I ordered level but expect it to take a while to come back) -no acute HD needs currently but remains at risk for need- discussed with #acidosis- mixed resp and metabolic -has chronic met acidosis likely CKD related, on po bicarb as outpt-> acute worsening on admit. Also underlying COPD contributing to resp. -had elevated lactate on admit, likely sepsis related -treating underlying sepsis, IV bicarb gtt--> pH improved and will d/c IV bicarb. Needs to resume po bicarb once cleared for taking po. #sepsis- RUL consolidation on CXR -immunocompromised given transplant status -cultures pending, on broad spectrum antibiotics -viral resp panel neg -stress dose steroids given immunosuppression -not requiring pressors currently but BP on softer side- follow -crit care recommending bronch but pt unsure if he wants to do this #acute hypoxic resp failure- suspect infectious. Improved -viral resp panel neg, blood cx pending -mild elevation in troponin -underlying COPD #hypoCA, hypoK and hypoMg -replacing now- likely due to poor po intake, immunosupp can cause low Mg, bicarb gtt -follow lytes q6 hours for now #anemia CKD/acute illness -would avoid IV iron given acute infection -will need to start Epo- discuss with -transfuse if Hb <7 -- please use leukopoor blood as transplant #afib #s/p pacemaker #gout #COPD #anxiety I discussed with crit care MD and RN Eli Dasilva MD [facility] pager [phone] 12/10/17 14:59 Subjective: Feeling better, ongoing anxiety issues but SOB and BP improved. Cr remains stable, good UOP. Denies abd or cp. Not cleared for po intake yet. Objective: Vital Signs Temp Pulse Resp BP Pulse Ox 37.0 C 60 13 108/79 97 12/10/17 11:46 12/10/17 14:00 12/10/17 14:00 12/10/17 14:00 12/10/17 14:00 Microbiology 12/09/17 15:17 - Final Sputum, Induced/Suctioned Laboratory Results 12/10/17 06:00 12/10/17 11:30 12/09/17 12/10/17 12/11/17 05:59 05:59 05:59 Intake Total 482 3884 Output Total 600 1250 Balance -118 2634 PT 21.8 SEC (12.0-15.0) H 12/09/17 04:00 INR 1.89 (0.83-1.16) H 12/09/17 04:00 Physical Exam - Physical Exam General Appearance: alert, other (chronically ill, less tachypneic, anxious, on O2 by NC) EENT: other (mmm) Neck: supple Respiratory: other (coarse rales bilat) Cardiac/Chest: regular rate, rhythm, other (paced) Abdomen: non-tender, other (distended, nt, no tense ascites) Male Genitalia: other (sue in, dark urine) Skin: warm/dry Neuro/Psych: alert, oriented x 3 ICD10 Worksheet Patient Problems: Problems Problem Status Onset Pneumonia Acute Abdominal pain Acute Anemia Acute Diarrhea Acute Diarrhea Acute Elevated troponin Acute Heart block AV second degree Acute Hypocalcemia Acute Hyponatremia Acute Pacemaker Acute Subtherapeutic international normalized ratio (INR) Acute Urinary tract infection Acute Vomiting Acute
[2017-12-10] MEDS ORDERED: POTASSIUM Cl (KCl) 50 ML IV ONE (15:00)
[2017-12-10] MEDS ORDERED: NS 1,000 ML IV SCH (15:00)
[2017-12-10] MEDS ORDERED: POTASSIUM Cl (KCl) 100 ML IV SCH (15:00)
[2017-12-10] MEDS ORDERED: NS 250 ML IV ONE (18:00)
[2017-12-10] MEDS ORDERED: MAGNESIUM SULF 1 GM/DEXTROSE 100 ML IV ONE (18:00)
[2017-12-10] MEDS ORDERED: SENNOSIDES/DOCUSATE SODIUM TAB PO SCH (21:00)
[2017-12-10] MEDS ORDERED: ACETAMINOPHEN 650 MG/20.3 ML UDCUP TUBE PRN (22:30)
[2017-12-10] MEDS ORDERED: LACTULOSE 20 GM/30 ML UDCUP TUBE PRN (22:30)
[2017-12-10] MEDS ORDERED: GUAIFENESIN/DM 10 ML UDCUP TUBE PRN (22:30)
[2017-12-10] MEDS ORDERED: [UNRECOGNIZED DRUG - OTHER] IV SCH (22:45)
[2017-12-10] MEDS ORDERED: MYCOPHENOLATE MOFETIL HCL IV SCH (23:00)
[2017-12-10] MEDS ORDERED: D5W IV SCH (23:00)
[2017-12-10] MEDS: CYCLOSPORINE MODIFIED 100 MG TUBE SCH (23:10)
[2017-12-10] MEDS: OLANZapine 2.5 MG TAB TUBE SCH (23:11)
[2017-12-10] MEDS: CYCLOSPORINE, MODIFIED 25 MG CAP (NEORAL) TUBE SCH (23:11)
[2017-12-10] MEDS: lamoTRIgine 100 MG TAB TUBE SCH (23:12)
[2017-12-10] MEDS: lamoTRIgine 100 MG TAB PO SCH (23:41)
[2017-12-10] MEDS: OLANZapine 2.5 MG TAB PO SCH (23:42)
[2017-12-11] MEDS: LORazepam 2 MG/ML INJ IVP PRN ×4 (00:04→17:20)
[2017-12-11] MEDS: D5W IV SCH ×2 (00:13→09:31)
[2017-12-11] MEDS: MYCOPHENOLATE MOFETIL HCL IV SCH ×2 (00:13→09:31)
[2017-12-11] MEDS: IPRATROPIUM/ALBUTEROL 3 ML DEYVIAL IH SCH ×4 (04:59→20:27)
[2017-12-11 05:13] LABS: PLATELET COUNT 102 10^3/uL (150-400)
[2017-12-11] MEDS: PIPERACILLIN/TAZO 2.25 GM/DEX 50 ML IV SCH ×4 (05:31→23:45)
[2017-12-11] MEDS: HYDROCORTISONE 100 MG/2 ML VIAL IVP SCH ×3 (05:31→23:45)
[2017-12-11] MEDS: HEPARIN 5,000 UNIT/0.5 ML SYR SC SCH ×3 (05:32→23:45)
--- NOTE | 2017-12-11 08:24 | PDINTPN ---
Chief Of [employer] Progress Note Assessment/Plan: Assessment/Plan: * Community-acquired pneumonia, multi lobar. Associated with persistent rhonchi. Cultures negative so far. He does appear to be responding to antibiotics. Despite infiltrate and pulmonary congestion oxygen requirements remain low. Arterial blood gas is improved. -consider bronchoscopy today for right upper lobe consolidation. -will discuss with primary care physician * Acute respiratory failure: Improving. On minimal oxygen at this time. * Sepsis: Has not required pressors. On stress steroids, intravenous fluids with a CVP of 12. * DNR/DNI: This was discussed with the patient and his . Even if he were to progress to respiratory failure they would not want him intubated. * Immunosuppression: Secondary to pancreatic and renal transplants. Stable. * Renal insufficiency: BUN in the 50s, creatinine 3.2. Stable. Renal transplant is known to be slowly failing. He does not want another. Renal following. * Anemia: Secondary to renal failure and chronic disease. Will give 1 unit of packed red cells today for his hematocrit of 21. * Hypertension: Blood pressure is borderline low secondary to sepsis. Remains on low-dose amlodipine. * DVT prophylaxis: Subcu heparin. GI prophylaxis: Famotidine adjusted for renal failure Subjective: Awake but nonverbal this morning. Objective: Vital Signs Temp Pulse Resp BP Pulse Ox 36.1 C 63 18 113/64 96 12/11/17 08:00 12/11/17 08:00 12/11/17 08:00 12/11/17 08:00 12/11/17 08:00 Microbiology 12/09/17 15:17 - Final Sputum, Induced/Suctioned Laboratory Results 12/11/17 05:00 12/11/17 05:00 12/10/17 12/11/17 12/12/17 05:59 05:59 05:59 Intake Total 3884 3421 Output Total 1250 1160 Balance 2634 2261 PT 21.8 SEC (12.0-15.0) H 12/09/17 04:00 INR 1.89 (0.83-1.16) H 12/09/17 04:00 Chest [id number] by myself. Still significant consolidation the right upper lobe, however this is improved. - Time Spent With Patient Time Spent With Patient: 35 min of time spent with patient, over 1/2 involved with coordination of care or counseling. Case discussed extensively with the patient's family. Will discuss with primary care physician. Physical Exam - Physical Exam General Appearance: no apparent distress, No alert EENT: PERRL/EOMI Neck: non-tender, full range of motion Respiratory: crackles (Right), No respiratory distress, No accessory muscle use Cardiac/Chest: normal peripheral pulses, regular rate, rhythm Peripheral Pulses: 2+: carotid (R), carotid (L), femoral (R), femoral (L), dorsalis-pedis (R), dorsalis-pedis (L) Abdomen: normal bowel sounds, non-tender, soft Male Genitalia: deferred Rectal: deferred Extremities: non-tender, No swelling Neuro/Psych: No alert ICD10 Worksheet Patient Problems: Problems Problem Status Onset Pneumonia Acute Abdominal pain Acute Anemia Acute Diarrhea Acute Diarrhea Acute Elevated troponin Acute Heart block AV second degree Acute Hypocalcemia Acute Hyponatremia Acute Pacemaker Acute Subtherapeutic international normalized ratio (INR) Acute Urinary tract infection Acute Vomiting Acute
[2017-12-11] MEDS ORDERED: amLODIPine BESYLATE 5 MG TAB TUBE SCH (09:00)
[2017-12-11] MEDS: SENNOSIDES 17.6 MG/10 ML UDL PO SCH ×2 (09:04→22:09)
[2017-12-11] MEDS: ASPIRIN 81 MG CHEWABLE TAB TUBE SCH (09:05)
[2017-12-11] MEDS: CYCLOSPORINE MODIFIED 100 MG TUBE SCH ×2 (09:05→22:10)
[2017-12-11] MEDS: PANTOPRAZOLE SODIUM 40 MG VIAL IVP SCH (09:05)
[2017-12-11] MEDS: CYCLOSPORINE, MODIFIED 25 MG CAP (NEORAL) TUBE SCH ×2 (09:05→22:10)
[2017-12-11] MEDS: lamoTRIgine 100 MG TAB TUBE SCH ×2 (09:05→22:09)
[2017-12-11] MEDS: EZETIMIBE 10 MG TAB TUBE SCH (09:05)
--- NOTE | 2017-12-11 09:15 | SOAPPROG ---
SOAP Progress Note Assessment/Plan: Assessment: Plan: 12/11/17 09:15 acute RUL pneumonia--clinical picture improving today. CXR looks better. BP improved. WBC remains to be elevated, on stress hydrocortisone. Pseudomonas on culture, currently on Zosyn. ID consult pending. We discussed bronchoscopy. Clinical picture improving. Will hold off for now. Appreciate discussion with Dr Gutierrez CKD--remaining to be stable. Hopefully AGUSTINA is avoided. UOP ok, but less than yesterday in>out. Appreciate nephrology input anemia--acute on chronic 1 unit PRBC's given yesterday with benefit a fib--stable rate control. On SC hep. No detention anticoag has been used as risk out weighs benefit depression/anxiety--historically hospitalization has been an exceptional stressor for Danny. Olanzapine has been helpful as a baseline. Ativan helps stress but has left him muddled. He is agitated, sitter help has been invaluable big picture discussions with Lida Palomares and POA--baseline enjoyment of life has been good despite challenges. They are not ready for hospice yet. Interested in palliative care. Subjective: Danny is muddled from his medications this morning. He is able to give yes no answers but not much content is intelligible. Seems to be able to cough on command. Restless. NG tub in place Objective: Vital Signs Temp Pulse Resp BP Pulse Ox 36.1 C 63 18 113/64 96 12/11/17 08:00 12/11/17 08:00 12/11/17 08:00 12/11/17 08:00 12/11/17 08:00 Microbiology 12/09/17 15:17 - Final Sputum, Induced/Suctioned Laboratory Results 12/11/17 05:00 12/11/17 05:00 12/10/17 12/11/17 12/12/17 05:59 05:59 05:59 Intake Total 3884 3421 Output Total 1250 1160 Balance 2634 2261 PT 21.8 SEC (12.0-15.0) H 12/09/17 04:00 INR 1.89 (0.83-1.16) H 12/09/17 04:00 Gen: mildly agitated, yes/no answers for the most part only HEENT: blind, NG tube, NC in place Lungs: good air movement, moderate congestion. Productive cough Heart: paced a fib Abd + distention, no clear BS, soft LE's minimal edema Skin--stable scars, mild ecchymosis WBC 18 HGB 8.4 Cr stable ICD10 Worksheet Patient Problems: Problems Problem Status Onset Pneumonia Acute Abdominal pain Acute Anemia Acute Diarrhea Acute Diarrhea Acute Elevated troponin Acute Heart block AV second degree Acute Hypocalcemia Acute Hyponatremia Acute Pacemaker Acute Subtherapeutic international normalized ratio (INR) Acute Urinary tract infection Acute Vomiting Acute
--- NOTE | 2017-12-11 09:30 | SOAPPROG ---
SOAP Progress Note Assessment/Plan: Assessment: 1. CKD V. Creat ~3 at baseline, has been 3-3.8 recently though. Has had progression over the past year. Was feeling more weak even before his current pneumonia. Is probably close to the point where he would need to start dialysis, but currently expresses that he would not want it. His spoke with Dr. Mcarthur. Their goal is to get home with palliative care right now. 2. Multilobar pneumonia. Radiographic improvement, still very weak. Continue renally dosed zosyn. 3. Kidney transplant. Continue DHT Gengraf, IV cellcept. Taper hydrocortisone soon. Gengraf level ordered. 4. Shock. Improved BPs today, CVP > 10. Had 4 L IVF yesterday. Will d/c maintenance NS. D/ c amlodipine. 5. CAD. Managed medically. Was too high risk for ESRD with [facility]. 6. Hypocalcemia. Mild. Replaced. Check albumin. Plan: 12/11/17 09:26 12/11/17 09:31 12/11/17 09:32 12/11/17 09:33 12/11/17 09:34 12/11/17 09:36 Subjective: Danny and his visited with Dr. Mcarthur. They would like to see if he can get some recovery and then discharge home on palliative care. Danny was able to vocalize to me that he would not want dialysis. Obviously though, his mental status is suboptimal right now. Objective: Vital Signs Temp Pulse Resp BP Pulse Ox 36.1 C 63 18 113/64 96 12/11/17 08:00 12/11/17 08:00 12/11/17 08:00 12/11/17 08:00 12/11/17 08:00 Microbiology 12/09/17 15:17 - Final Sputum, Induced/Suctioned Laboratory Results 12/11/17 05:00 12/11/17 05:00 12/10/17 12/11/17 12/12/17 05:59 05:59 05:59 Intake Total 3884 3421 Output Total 1250 1160 Balance 2634 2261 PT 21.8 SEC (12.0-15.0) H 12/09/17 04:00 INR 1.89 (0.83-1.16) H 12/09/17 04:00 Frail, lethargic but vocalizes and responds to my questions Distant muffled heart sounds, RRR Coarse rhonchorous breath sounds throughout Abdomen distended, tympanitic Tr ankle pitting edema ICD10 Worksheet Patient Problems: Problems Problem Status Onset Heart block AV second degree Acute Elevated troponin Acute Pacemaker Acute Urinary tract infection Acute Hyponatremia Acute Hypocalcemia Acute Subtherapeutic international normalized ratio (INR) Acute Anemia Acute Diarrhea Acute Vomiting Acute Diarrhea Acute Abdominal pain Acute Pneumonia Acute
[2017-12-11] MEDS ORDERED: EPOETIN ALFA 10,000 UNIT/ML VIAL SC SCH (09:45)
--- NOTE | 2017-12-11 10:55 | GCON ---
[f rep st] CONSULTATION INFECTIOUS DISEASE CONSULTATION REFERRING PHYSICIAN: Pamela Dahl NP REASON FOR CONSULTATION: Pseudomonal pneumonia. HISTORY OF PRESENT ILLNESS: The patient is a 57-year-old male with a past medical history of pancrea tic and kidney transplant 25 years ago whom I am asked to see in consultation for a right upper lobe pneumonia with sputum sample showing growth of Pseudomonas. The history is obtained by the patient's as the patient is currently unable to provide history. She describes that the patient had deve loped an abrupt onset of cough and shortness of breath on Monday. This was preceded by the patient n ot feeling well over the preceding week. This was described as just a sense of malaise. He was not known to have fever or chills. He was not having sputum production. Based on progressive symptoms, she called 9-1-1, and in the initial evaluation, he was found to have oxygen saturations in the mid 7 0% range. Previously, he had been treated with a 4-day course of doxycycline leading up to his hospi talization. At the time of presentation, the patient was noted to have a right mid lung infiltrate. He was given ceftriaxone and azithromycin in the emergency room, which was transitioned to [facility] on ongoing immunosuppression for his kidney transplantation. The patient was noted to have a band emia at the time of presentation and subsequently has developed leukocytosis. Blood cultures have re mained negative. A sputum sample was obtained with Gram stain showing 3+ white blood cells with 2+ e pithelial cells and no organisms being seen with growth of 1+ Pseudomonas. No recent travel. No unu sual animal contact. Given the above findings, I am now asked to assist in his ongoing management. PAST MEDICAL HISTORY: Renal and pancreatic transplants, COPD, type 1 diabetes, chronic renal insuffi ciency, hypertension, atrial fibrillation, tophaceous gout, anxiety, hyperlipidemia, blindness, perip heral neuropathy. PAST SURGICAL HISTORY: Pancreatic/kidney transplant, cholecystectomy, pacemaker placement, eye surge ry, foot surgery for tophaceous gout, dental implants with recent dental work approximately 4 weeks a go. CURRENT MEDICATIONS: Zosyn 2.25 grams IV q.6 hours; senna 17.6 mg p.o. twice daily; Protonix 40 mg I V daily; Zyprexa 3.75 mg p.o. daily; mycophenolate 500 mg IV twice daily; Lamictal 200 mg p.o. daily; hydrocortisone 100 mg IV q.8 hours; heparin 5000 units sub-Q q.8 hours; ferrous sulfate 325 mg p.o. twice daily; Zetia 10 mg p.o. daily; EPO 97829 units sub-Q weekly; cyclosporine 125 mg p.o. twice meenu ly; Questran 4 grams as needed; aspirin 81 mg p.o. daily; Tessalon Perles as needed; DuoNeb four time s daily; albuterol nebs as needed. ALLERGIES: Levofloxacin with unclear reaction. Certain benzodiazepines can be associated with hallu cinations. SOCIAL HISTORY: The patient does not smoke, drink alcohol, or use drugs. Pet cat at home which is a n indoor cat. No recent travel. FAMILY HISTORY: Stroke. REVIEW OF SYSTEMS: Outside that noted in the HPI, the remainder of 10 system review is unremarkable, although describes the patient has experienced intermittent diarrhea over the last 2 weeks. Sh e notes she has had similar findings. PHYSICAL EXAMINATION: VITAL SIGNS: Temperature 36.1, heart rate 63, respiratory rate 18, blood pres sure 113/64, oxygen saturation 96% on 2 L. GENERAL: The patient is chronically ill appearing with m ild agitation. He appears nontoxic. HEENT: There is no scleral icterus, conjunctival injection, or conjunctival petechiae. Oropharynx shows slightly dry mucous membranes. There is no nasal discharg e. There is no tenderness over the sinuses. NECK: Supple without palpable lymphadenopathy or thyro megaly. CHEST: There are coarse breath sounds bilaterally with weak cough present. Respiratory eff ort is mildly increased. CARDIOVASCULAR: Regular rate and rhythm without murmurs, gallops, or rubs. Pacemaker is present in the left upper chest without tenderness or erythema. ABDOMEN: Soft, diste nded, nontender. There is no palpable organomegaly. A well-healed scar in midline. Bowel sounds ar e hypoactive. MUSCULOSKELETAL: No cyanosis, clubbing, or edema. SKIN: There are multiple ecchymos es over the upper extremities. There are some pressure-related ecchymotic areas over the right foot along the toes. LYMPHATICS: No cervical or supraclavicular nodes. : Garcia catheter is in place. NEUROLOGIC: The patient is awake but confused. Muscle bulk is decreased throughout. Sensation ap pears grossly intact. LABORATORY DATA: White blood cell count 18.3, hematocrit 24.4, platelets 102, neutrophils 61%, bands 34%. Serum creatinine is 3.2. Urine Legionella and urine Streptococcus pneumoniae antigens are pen ding. Random vancomycin level is 11.3. INR is 1.9. Chest x-ray shows right upper lobe infiltrate. Blood cultures x2 are negative. Sputum as outlined above. Respiratory pathogen panel by PCR testin g is negative. IMPRESSION: Right upper lobe pneumonia with underlying immunosuppression associated with prior pancr eas/kidney transplant: Sputum shows growth of Pseudomonas which may be true pathogen in this setting , although also could represent colonization. The patient is also at risk for typical pathogens of c ommunity-acquired pneumonia such as Streptococcus pneumoniae or Haemophilus influenzae. Atypical pat hogens seem of lower likelihood, and further evaluation is underway with Legionella urinary antigen. Overall condition is quite guarded, and family is having ongoing discussions regarding possible pall iative care. RECOMMENDATIONS: 1. Agree with continued Zosyn which is dose adjusted for underlying renal insufficiency. 2. Follow up blood cultures over time and pseudomonal susceptibilities as available. 3. Continued intensive care unit supportive care. Thank you for this consultation. We will continue to follow the patient with you. /[id number]/MODL
--- NOTE | 2017-12-11 12:38 | ASMTCMCOM ---
CM Note CM Note Notes: Met w/, Lida and Aayush in a Palliative Meeting. She is hopeful that after the PNA has been tx patient will be able to return home and be assisted w/Palliative Care at home. Blanquita contacted and will make arrangements to meet w/ this afternoon or Monday. is clear that patient does not wish to be intubated or have chest compressions. Date Signed: 12/11/2017 12:38 PM Electronically Signed By:Nessa Kenney LCSW
--- NOTE | 2017-12-11 12:59 | ASMTCMCOM ---
CM Note CM Note Notes: Received a call from [facility] who are presently serving patient with PT. asking for more therapy and RN at home. On discharge it would be helpful to have: RN, PT, OT, ST, MEDICAL ACCOUNTING CLERK along with Palliative care at home. Date Signed: 12/11/2017 12:58 PM Electronically Signed By:Nessa Kenney LCSW
[2017-12-11] MEDS ORDERED: SODIUM BICARBONATE 650 MG TAB TUBE ONE (19:15)
[2017-12-11] MEDS ORDERED: CALCIUM GLUCONATE 1 GM in D5W 50 ML IV ONE (19:30)
[2017-12-11] MEDS: OLANZapine 2.5 MG TAB TUBE SCH (22:10)
[2017-12-12] MEDS: MYCOPHENOLATE MOFETIL HCL IV SCH ×3 (01:50→09:50)
[2017-12-12] MEDS: D5W IV SCH ×3 (01:50→09:50)
[2017-12-12 04:19] LABS: PLATELET COUNT 117 10^3/uL (150-400)
[2017-12-12] MEDS: IPRATROPIUM/ALBUTEROL 3 ML DEYVIAL IH SCH ×3 (05:17→15:37)
[2017-12-12] MEDS: HYDROCORTISONE 100 MG/2 ML VIAL IVP SCH ×2 (06:06→14:06)
[2017-12-12] MEDS: PIPERACILLIN/TAZO 2.25 GM/DEX 50 ML IV SCH ×2 (06:06→12:33)
[2017-12-12] MEDS: HEPARIN 5,000 UNIT/0.5 ML SYR SC SCH ×2 (06:06→16:26)
--- NOTE | 2017-12-12 08:40 | SOAPPROG ---
SOAP Progress Note Assessment/Plan: Assessment: 57 yo male with multiple chronic issues including diabetes mellitus treated with pancreatic transplant, s/p two kidney transplants and with CKD stage 4, chronic anemia, failure to thrive. Admitted last night for severe respiratory distress found to have right middle lobe pneumonia as demonstrated by cxr, sepsis, metabolic acidosis, respiratory distress and hypomagnesemia, hypokalemia. Currently being followed by accounting manager assistant controller as well as nephrology ( greatly appreciate assistance). Plan: Both Dr. Gutierrez and I discussed concerns about worsening picture with , Lida, this morning. She is planning to meet with Palliative this AM and is leaning towards taking Danny home with hospice. Acute RUL Pneumonia: WBC up from 18.3 to 29 this AM which is quite concerning. ABG ordered by Dr. Gutierrez. Also ordered repeat blood cultures, urine culture, abd 3 view. ID following for abx coverage. CKD: creat 3.8 this AM, good UOP yesterday. In >out. Appreciate nephrology assistance. Anxiety: Danny has a hx of worsened anxiety while in the hospital. Schedule olanzapine seems to be helpful. He has prn ativan, though would use with caution given intermittent lethargy. Atrial fibrillation: Currently paced, rate controlled, SC heparin for anticoag. Anemia: s/p two units PRBC, hgb 9.9 today Ileus: NGT to low int suction. Distention somewhat improved though still present. S/p renal transplant x2: on immunosuppressants, stress dose of steroids S/p pancreatic transplant: above Diabetes type 1: s/p pancreatic transplant, no need for blood glucose monitoring at this time COPD at baseline DVT prophylaxis: sc heparin Dispo: to remain in ICU for close monitoring, considering home with hospice , appreciate palliative help 12/12/17 08:27 Subjective: Danny is resting in bed, he is quite restless this morning. Most of my conversation is with his , Lida, as Danny is non-participatory this morning. He does not appear to be in pain. Objective: Vital Signs Temp Pulse Resp BP Pulse Ox 36.9 C 60 26 H 136/50 H 97 12/11/17 20:00 12/12/17 06:00 12/12/17 06:00 12/12/17 06:00 12/12/17 06:00 Microbiology 12/09/17 15:17 - Final Sputum, Induced/Suctioned Sputum Culture - Final Pseudomonas Aeruginosa Laboratory Results 12/12/17 04:05 12/12/17 04:05 12/11/17 12/12/17 12/13/17 05:59 05:59 05:59 Intake Total 3421 350 Output Total 1160 1993 Balance 2261 -1644 PT 21.8 SEC (12.0-15.0) H 12/09/17 04:00 INR 1.89 (0.83-1.16) H 12/09/17 04:00 Gen- awake though not responding to or participating in conversation Head- normocephalic, atraumatic Resp- quite labored with belly breathing this morning. Lungs are rhonchorous throughout, but he is maintaining sats on 2LO2. CV- paced at 60bpm Abd- distended, firm. NGT to low int suction Extremities- no peripheral edema noted Skin- warm and dry ICD10 Worksheet Patient Problems: Problems Problem Status Onset Pneumonia Acute Abdominal pain Acute Anemia Acute Diarrhea Acute Diarrhea Acute Elevated troponin Acute Heart block AV second degree Acute Hypocalcemia Acute Hyponatremia Acute Pacemaker Acute Subtherapeutic international normalized ratio (INR) Acute Urinary tract infection Acute Vomiting Acute
--- NOTE | 2017-12-12 08:50 | PDINTPN ---
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 Associated with persistent rhonchi. Cultures negative so far. He does appear to be responding to antibiotics. Despite infiltrate and pulmonary congestion oxygen requirements remain low. Arterial blood gas is improved. -will order an ABG * Acute respiratory failure: Worsening. Increased oxygen requirements. He increased rhonchi on physical exam. -check a chest x-ray * Sepsis: Has not required pressors. White blood cell count up today. -agree with abdominal x-rays -continue current antibiotics -will check taped level * DNR/DNI: This was discussed with the patient and his . * Immunosuppression: Secondary to pancreatic and renal transplants. Stable. * Renal insufficiency: BUN in the 50s, creatinine 3.2. Stable. Renal transplant is known to be slowly failing. He does not want another. Renal following. * Anemia: Secondary to renal failure and chronic disease. Will give 1 unit of packed red cells today for his hematocrit of 21. * Hypertension: Blood pressure is borderline low secondary to sepsis. Remains on low-dose amlodipine. * DVT prophylaxis: Subcu heparin. GI prophylaxis: Famotidine adjusted for renal failure * Disposition-long discussion with the patient's this morning regarding end of life issues. If he worsens, and it looks like he is going to , she wishes to take him home and have him home. Subjective: Somnolent and poorly arousable Objective: Vital Signs Temp Pulse Resp BP Pulse Ox 36.9 C 60 26 H 136/50 H 97 12/11/17 20:00 12/12/17 06:00 12/12/17 06:00 12/12/17 06:00 12/12/17 06:00 Microbiology 12/09/17 15:17 - Final Sputum, Induced/Suctioned Sputum Culture - Final Pseudomonas Aeruginosa Laboratory Results 12/12/17 04:05 12/12/17 04:05 12/11/17 12/12/17 12/13/17 05:59 05:59 05:59 Intake Total 3421 350 Output Total 1160 1993 Balance 2261 -1644 PT 21.8 SEC (12.0-15.0) H 12/09/17 04:00 INR 1.89 (0.83-1.16) H 12/09/17 04:00 - Time Spent With Patient Time Spent With Patient: 35 min time spent with patient, over 1/2 involved with coordination of care or counseling Physical Exam - Physical Exam General Appearance: No alert, No no apparent distress EENT: PERRL/EOMI Neck: non-tender, full range of motion, supple, normal inspection Respiratory: respiratory distress (Mild), rhonchi (Diffuse), No accessory muscle use Cardiac/Chest: normal peripheral pulses, regular rate, rhythm Peripheral Pulses: 2+: carotid (R), carotid (L), femoral (R), femoral (L), dorsalis-pedis (R), dorsalis-pedis (L) Abdomen: normal bowel sounds, non-tender, soft Male Genitalia: deferred Rectal: deferred Skin: normal color, warm/dry Extremities: non-tender Neuro/Psych: No alert ICD10 Worksheet Patient Problems: Problems Problem Status Onset Pneumonia Acute Abdominal pain Acute Anemia Acute Diarrhea Acute Diarrhea Acute Elevated troponin Acute Heart block AV second degree Acute Hypocalcemia Acute Hyponatremia Acute Pacemaker Acute Subtherapeutic international normalized ratio (INR) Acute Urinary tract infection Acute Vomiting Acute
[2017-12-12] MEDS: PANTOPRAZOLE SODIUM 40 MG VIAL IVP SCH (09:06)
[2017-12-12] MEDS: CYCLOSPORINE, MODIFIED 25 MG CAP (NEORAL) TUBE SCH (09:06)
[2017-12-12] MEDS: SENNOSIDES 17.6 MG/10 ML UDL PO SCH (09:06)
[2017-12-12] MEDS: lamoTRIgine 100 MG TAB TUBE SCH (09:07)
[2017-12-12] MEDS: ASPIRIN 81 MG CHEWABLE TAB TUBE SCH (09:07)
[2017-12-12] MEDS: EZETIMIBE 10 MG TAB TUBE SCH (09:07)
[2017-12-12] MEDS: CYCLOSPORINE MODIFIED 100 MG TUBE SCH (09:07)
--- NOTE | 2017-12-12 14:26 | PDIAF ---
- Diagnosis Diagnosis: RUL Pneumonia Code Status: Do Not Resuscitate - Medication Management Discharge Medications: Medications to Continue on Transfer Allopurinol [Allopurinol 100 MG (*)] 100 mg PO DAILY 05/02/16 [Last Taken ] Cholestyramine (with Sugar) [Cholestyramine Packet] 4 gm PO Q6 PRN 05/02/16 [ Last Taken 12/08/17] Denosumab [Prolia] 60 mg SQ .TWICE YEARLY 05/02/16 [Last Taken 11/16/17] Ezetimibe [Zetia 10 MG (*)] 10 mg PO DAILY 05/02/16 [Last Taken 12/08/17] Herbals/Supplements -Info Only 1 ea PO DAILY 05/02/16 [Last Taken 12/08/17] amLODIPine BESYLATE [Norvasc 2.5 mg (*)] 2.5 mg PO DAILY 05/02/16 [Last Taken ] lamoTRIgine [Lamictal] 200 mg PO DAILY 05/02/16 [Last Taken 12/08/17] lamoTRIgine [LamICTAL 100 MG (*)] 100 mg PO HS #0 tab 05/04/16 [Last Taken 12/08] Mycophenolate Mofetil [Cellcept] 500 mg PO BID 05/23/16 [Last Taken 12/08/17] cycloSPORINE, MODIFIED [Neoral 100 MG (*)] 100 mg PO BID 05/23/16 [Last Taken ] cycloSPORINE, MODIFIED [Neoral 25 MG (*)] 25 mg PO BID 05/23/16 [Last Taken 02/19] Lincoln-3 Fatty Acids/Fish Oil [Lincoln 3 Fish Oil Softgel] 1 each PO QID 08/14/16 [ Last Taken 12/08/17] Sodium Bicarbonate [Na Bicarb] 3,250 mg PO TID 08/14/16 [Last Taken 12/08/17] predniSONE 5 mg PO DAILY #0 tab 08/15/16 [Last Taken 12/08/17] LORazepam [Ativan (*)] 0.5 - 1.5 mg PO HS PRN 11/08/16 [Last Taken 12/08/17] oxyCODONE IR [Oxycodone Ir (*)] 5 - 10 mg PO Q3 PRN 11/08/16 [Last Taken ] Calcitriol [Calcitriol (*)] 0.5 mcg PO DAILY #0 cap 11/11/16 [Last Taken ] Aspirin EC [Aspirin EC 81 mg (*)] 81 mg PO DAILY 11/29/16 [Last Taken 12/08/17] OLANZapine [ZyPREXA 2.5 mg (*)] 3.75 mg PO HS 11/29/16 [Last Taken 12/08/17] Ondansetron Odt [Zofran Odt 4 mg (*)] 4 mg PO Q4HRS PRN #30 tab 11/30/16 [Last Taken 12/08/17] Ascorbic Acid [Vitamin C 500 mg (*)] 500 mg PO BID 12/09/17 [Last Taken 12/08/17 ] Epoetin Sebas [Procrit 15553 UNIT/ML (*)] 20,000 unit SQ .Q 2 WEEKS 12/09/17 [ Last Taken 11/20/17] Ferrous Gluconate 324 mg PO BID 12/09/17 [Last Taken 12/08/17] Discharge Medications: Refer to the Discharge Home Medication list for PRN reason. - Orders Services needed: Home Care (Home hospice), Registered Nurse Home Care Face to Face: I certify that this patient was under my care and that I had the required [id number] encounter meeting the encounter requirements on the discharge day. My findings support the fact that the patient is homebound as defined in Home Care Face to Face Continued: CMS Chapter 7 Medicare Benefits Manual 30.1.1 , The condition of the patient is such that there exists a normal inability to leave home and consequently, leaving home would require a considerable and taxing effort. Isolation Type: None Diet Recommendation: no restrictions on diet Diet Texture: Dysphagia 1 - Pureed, Thin Liquids - Follow Up Care Current Providers and Referrals: Tani Mcarthur PA [Primary Care Provider] - As per Instructions
[2017-12-12] MEDS ORDERED: SODIUM BICARBONATE 50 MEQ/50 ML SYR IVP ONE (14:51)
--- NOTE | 2017-12-12 15:04 | SOAPPROG ---
SOAP Progress Note Assessment/Plan: Assessment: 1. renal txplt: creat trending up but still within his recent b/l range. Would cont IS meds on d/c if possible. 2. pneumonia: doing poorly and now planning to go home with hospice. This appears to be a very reasonable decision. 3. met acidosis: was on extremely high-dose po bicarb prior to admit. Not currently able to take po meds. Agree with dosing iv prior to d/c to temporize. 4. dispo: agree with home hospice. Plan: 12/12/17 15:01 Subjective: Doing poorly, has decided to take him home on hospice care. Objective: Vital Signs Temp Pulse Resp BP Pulse Ox 36.4 C 61 19 130/37 H 92 12/12/17 12:00 12/12/17 14:00 12/12/17 14:00 12/12/17 14:00 12/12/17 14:00 Microbiology 12/09/17 15:17 - Final Sputum, Induced/Suctioned Sputum Culture - Final Pseudomonas Aeruginosa Laboratory Results 12/12/17 04:05 12/12/17 04:05 12/11/17 12/12/17 12/13/17 05:59 05:59 05:59 Intake Total 3421 350 Output Total 1160 1994 135 Balance 2261 -1644 -135 PT 21.8 SEC (12.0-15.0) H 12/09/17 04:00 INR 1.89 (0.83-1.16) H 12/09/17 04:00 Physical Exam - Physical Exam General Appearance: unresponsive Respiratory: other (coarse BS anteriorly) Cardiac/Chest: regular rate, rhythm Abdomen: soft Extremities: pedal edema (none) ICD10 Worksheet Patient Problems: Problems Problem Status Onset Pneumonia Acute Abdominal pain Acute Anemia Acute Diarrhea Acute Diarrhea Acute Elevated troponin Acute Heart block AV second degree Acute Hypocalcemia Acute Hyponatremia Acute Pacemaker Acute Subtherapeutic international normalized ratio (INR) Acute Urinary tract infection Acute Vomiting Acute
[2017-12-12] MEDS ORDERED: morphINE 10 MG/0.5 ML UDSYR PO PRN (15:17)
[2017-12-12] MEDS ORDERED: LORazepam 1 MG/0.5 ML UDSYR PO PRN (15:18)
--- NOTE | 2017-12-12 15:20 | PDIAF ---
- Diagnosis Diagnosis: RUL Pneumonia Code Status: Do Not Resuscitate - Medication Management Discharge Medications: Medications to Continue on Transfer LORazepam [Ativan (*)] 0.5 - 1.5 mg PO HS PRN 11/08/16 [Last Taken 12/08/17] Ondansetron Odt [Zofran Odt 4 mg (*)] 4 mg PO Q4HRS PRN #30 tab 11/30/16 [Last Taken 12/08/17] LORazepam [Ativan inj 2 mg/ml (*)] 1 mg IVP Q1H PRN inj 12/12/17 [Last Taken Unknown] OLANZapine [ZyPREXA 2.5 mg (*)] 3.75 mg TUBE HS tab 12/12/17 [Last Taken Unknown] morphINE [morphINE 4 mg/ml inj (*)] 1 - 2 mg IVP Q4HRS PRN syr 12/12/17 [Last Taken Unknown] oxyCODONE IR [Oxycodone Ir (*)] 5 - 10 mg PO Q3 PRN tab 12/12/17 [Last Taken Unknown] Discharge Medications: Refer to the Discharge Home Medication list for PRN reason. - Orders Services needed: Home Care (Home hospice), Registered Nurse Home Care Face to Face: I certify that this patient was under my care and that I had the required [id number] encounter meeting the encounter requirements on the discharge day. My findings support the fact that the patient is homebound as defined in Home Care Face to Face Continued: CMS Chapter 7 Medicare Benefits Manual 30.1.1 , The condition of the patient is such that there exists a normal inability to leave home and consequently, leaving home would require a considerable and taxing effort. Isolation Type: None Diet Recommendation: no restrictions on diet Diet Texture: Dysphagia 1 - Pureed, Thin Liquids - Follow Up Care Current Providers and Referrals: Tani Mcarthur PA [Primary Care Provider] - As per Instructions
--- NOTE | 2017-12-12 15:54 | ASDISCHSUM ---
Discharge Information Plan Status:Hospice-Home Medically Cleared to Leave:12/12/2017 Discharge Date:12/12/2017 CM D/C Disposition:Hospice Home ADT D/C Disposition:Hospice Home Projected Discharge Date:12/12/2017 05:30 PM Transportation at D/C:ALS/BLS Discharge Delay Reason: Follow-Up Date:12/12/2017 05:30 PM Discharge Slot: Final Diagnosis:PNA, Resp failure, Sepsis, Renal insufficiency, HTN Placement Information Referral Type:Palliative Care Referral ID:[id number] Provider Name: Address 1: Phone Number: Address 2: Fax Number: City: Selection Factors: State: Referral Type:*Home Health Care Services Referral ID:[id number] Provider Name: Address 1: Phone Number: Address 2: Fax Number: City: Selection Factors: State: Referral Type:*Hospice Referral ID:[id number] Provider Name:[facility] Address 1:[address] Address 2: City:[place] Selection Factors: State:[place] Patient Contact Information Contact Name:JUAN Relationship: Address:[address] City:[place] Alternate Phone: State/Zip Code:[place] [address] Email: Financial Information Financial Class:Medicare Primary Plan Desc:MEDICARE INPATIENT Primary Plan Number:[id number] [facility] Secondary Plan Number:[id number] Assessment Information [facility] CM Progress Note CM Note CM Note Notes: Pt admitted for shortness of breath and hypoxia. Diagnosed with Pneumonia. Per ICU rounds, pt has an extensive medical history including COPD, DM, anxiety and multiple transplants (pancreas and kidneys). Pt is , his 's name is Lida. Discharge needs remain unclear at this time. CM will continue to follow. Current Discharge Plan: To be determined Date Signed: 12/09/2017 03:55 PM Electronically Signed By:Oralia Del Rosario RN LACE LACWayne Length of stay for Answers: 3 days current admission Acuity / Level of Answers: Yes Care: Did the patient have an inpatient admission? Comorbidities - select Answers: Chronic pulmonary disease all that apply Diabetes (uncontrolled or controlled) Mild liver or renal disease Other Notes: Sick sinus syndrome, history of transplants on chronic immunosuppressants # of Emergency department Answers: 1-2 visits in the last 6 months Score: 13 Date Signed: 12/12/2017 03:51 PM Electronically Signed By:Nessa Kenney LCSW KUMAR WEISS Progress Note CM Note CM Note Notes: Met w/, Lida and Aayush in a Palliative Meeting. She is hopeful that after the PNA has been tx patient will be able to return home and be assisted w/Palliative Care at home. Blanquita contacted and will make arrangements to meet w/ this afternoon or Monday. is clear that patient does not wish to be intubated or have chest compressions. Date Signed: 12/11/2017 12:38 PM Electronically Signed By:Nessa Kenney LCSW KUMAR WEISS Progress Note CM Note CM Note Notes: Received a call from [facility] who are presently serving patient with PT. asking for more therapy and RN at home. On discharge it would be helpful to have: RN, PT, OT, ST, CONTROL ROOM AGENT along with Palliative care at home. Date Signed: 12/11/2017 12:58 PM Electronically Signed By:Nessa Kenney LCSW Case Management Discharge Plan Note Case Management Discharge Discharge Order Complete? Answers: Yes Patient to Obtain Answers: Other Notes: [facility] Hospice Medications Transportation Arranged Answers: [facility] will Pick (Date 12/12/2017 05:30 PM & Time) Case Management Transport Answers: Yes Form Complete Faxed Final Orders Answers: Yes Notes: MARTIN Family Notified Answers: Yes Notes: present Discharge Comments Notes: would like to take the patient home today w/[facility] Hospice. MARTIN has been contacted and will be at [facility] to talk with her today at 2:00PM. Patient to be transported by ambulance. Date Signed: 12/12/2017 03:52 PM Electronically Signed By:Nessa Kenney LCSW Intervention Information Intervention Type:*IM-Signed Date of Service:12/12/2017 03:49 PM Patient Type:Inpatient Staff Member:Paula Hurtado Hours: Discipline: Severity: Comment:
--- NOTE | 2017-12-12 16:17 | GDS ---
[f rep st] DISCHARGE SUMMARY HISTORY OF PRESENT ILLNESS: The patient is a 57-year-old male who was brought in to the emergency room on Monday evening by his for increased cough and shortness of breath over the evening. He was initially found to be hypoxic with an oxygen saturation in the mid 70s. On arrival to the emergency room he was placed on a CPAP and was given a DuoNeb breathing treatment and did have some improvement in his symptoms. He was then transitioned to a nasal cannula, where he maintained his sats. Initial chest x-ray on admission showed right middle lobe pneumonia and his initial blood work demonstrated normal white blood cell count. The patient does have a history of chronic kidney disease and is status post renal transplant x2. His creatinine on admission was 3.4, and he did have some electrolyte imbalances including hypocalcemia, hypokalemia , and hypomagnesemia. He was admitted to the ICU for respiratory distress and right middle lobe pneumonia. The following day his ABG demonstrated significant acidosis with a pH of 7.14, bicarb of 8. Initial lactate was elevated at 2.4. Blood cultures were negative. Respiratory panel was negative and the sputum culture ultimately demonstrated a pseudomonas infection. Throughout his hospital stay the patient has maintained his sats on nasal cannula and has not required the use of the CPAP for further intervention. Briefly, a bronchoscopy was considered, but the patient's and the patient ultimately declined the bronchoscopy. Over the course of his stay, the patient' s ABG and labs did improve initially, however, have since further declined. He developed abdominal distention on Monday and was found to have an ileus as demonstrated by KUB. An NG tube was placed with some improvement and decompression, however, the distention has persisted despite the decompression. His white count this morning was even further elevated at 29, and though lactate is within normal at 1, there is a high suspicion for significant gastrointestinal issues. After many discussions with the patient's and the patient, they have decided to take him home on hospice, where he can be comfortable, so the patient will be discharged this evening with home hospice. PAST MEDICAL HISTORY: Includes status post pancreatic transplant, status post renal transplant x2, with chronic kidney disease stage 4, diabetes type 1, COPD , non-oxygen dependent, chronic immunosuppressive therapy for multiple transplants, hypertension, hyperlipidemia, chronic pain, peripheral neuropathy, atrial fibrillation with sick sinus syndrome, status post pacemaker, and gout. ALLERGIES: Include doxycycline, Phenergan, levofloxacin, IV contrast, and triazolam. DISCHARGE MEDICATIONS: Include lorazepam 0.5 mg sublingual q.2 hours, and Roxanol 0.25 mg to 0.5 mg q.6 hours sublingual. /[id number]/MODL MTDD
[2017-12-12 16:28] VITALS: BP 97/35
[2017-12-12] MEDS ORDERED: SODIUM BICARBONATE 50 MEQ/50 ML SYR ONE (17:03)
--- NOTE | 2017-12-15 12:10 | PQFORM ---
PHYSICIAN QUERY FORM Needs Your Response This query form is being sent to you to assure this patient record is coded properly. 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 Dr. Lemon's 12/09 consultation patient had the diagnosis of "Sepsis/SIRS." Noted in the Medical Necessity notes dated 12/09 patient was diagnosed with "Severe Sepsis." White blood Count was 16.60 @ 0600 and 14.03 @ 1950 on 12/10, 18.31 on 12/11, and 29.00 on 12/12. Also noted in the SOAP notes dated 12/09-12/10 patient had the diagnosis of "sepsis," and in the Yard Loader Operator Progress Notes dated 12/10-12/12 patient had the diagnosis of "Sepsis." After study, should the diagnosis of "Severe Sepsis, present on admission" be included in this patients Discharge summary? __X___ Yes No Unable to determine Other more appropriate diagnosis Thank you ROSEMARIE Lee HIM/Coding Dept. [phone] INSTRUCTIONS FOR RESPONSE: Answer question by clicking on the "Edit Document" button. Move cursor to area below the stars. When complete, hit "Save." Click on the "Sign" button, then click "Sign" again. Type in your PIN and hit "Enter." MTDD
== END 2017-12-12 17:16 | disposition hospice, home (50) | DRG 871 ==
LOC: EDUNIT# → F2N 12-09 01:17 → OBSVTOIN 12-09 01:34 → F2N 12-11 21:50
PROVIDERS: ADMIT Family Medicine; ATTEND Family Medicine
PROC: 02HV33Z Insertion of Infusion Device into Superior Vena Cava, Percutaneous Approach (ICD-10-PCS; principal; 2017-12-09)
PROC: 30233N1 Transfusion of Nonautologous Red Blood Cells into Peripheral Vein, Percutaneous Approach (ICD-10-PCS; 2017-12-10)
DX: A41.9 Sepsis, unspecified organism (principal); J15.1 Pneumonia due to Pseudomonas; R65.21 Severe sepsis with septic shock; Z94.0 Kidney transplant status; Z94.83 Pancreas transplant status; K56.7 Ileus, unspecified; I12.9 Hypertensive chronic kidney disease with stage 1 through stage 4 chronic kidney disease, or unspecified chronic kidney disease; N18.4 Chronic kidney disease, stage 4 (severe); E87.2 Acidosis; E83.51 Hypocalcemia; E87.6 Hypokalemia; E83.42 Hypomagnesemia; R06.03 Acute respiratory distress; E10.9 Type 1 diabetes mellitus without complications; E78.5 Hyperlipidemia, unspecified; J44.9 Chronic obstructive pulmonary disease, unspecified; M10.9 Gout, unspecified; G89.29 Other chronic pain; G62.9 Polyneuropathy, unspecified; Z66 Do not resuscitate; Z99.81 Dependence on supplemental oxygen; Z95.0 Presence of cardiac pacemaker
CPT/HCPCS: 87449-90; 92610-GN; 96365; C1751; G8996-GN-CJ; G8997-GN-CH; J0456; J0610; J0696; J0885; J1170; J1644; J1720; J1940; J2060; J2270; J2543; J3370; J3475; J3480; J7502; J7515; J7613; J7626; P9016